=== PATIENT | female | born 1955 | race Caucasian/White ===

== ENCOUNTER 2016-05-22 11:57 | Inpatient (IN) | payer OTHER ==
[~2016-05-22] VITALS: Ht 157.5 cm; Wt 79.8 kg
[~2016-05-22 11:57] MED LIST: ACID REDUCER150 MG PO; ALBUTEROL NEB 0.083%; ATORVASTATIN CA20 MG PO; COREG 6.256.25 MG PO; ESCITALOPRAM5 MG PO; IBUPROFEN800 MG PO; LORAZEPAM; LORAZEPAM0.5 MG PO; METFORMIN HYDR500 MG PO; NORVASC5 M1 PO; PROVENTIL0.09 MG/A1 INH; SPIRIVA 18 MCG18 MCG INH; SYMBICORT 160/41 PUF INH
--- NOTE | 2016-05-22 12:04 | NUR ---
61 FEMALE STATES THAT SHE HAS COPD AND ASTHMA AND THAT YESTERDAY SHE STARTED WITH A COUGH AND INCREASED SOB, USED HER NEBULIZER AT HOME WITH A LITTLE RELIEF. STATES THAT SHE WAS ABLE TO GO WITH OUT O2 AND BREATHING TREATMENTS FOR 2 MONTHS. HAD FEVER AND SHE TOOK MOTRIN. AFEBRILE AT THIS TIME. LEGS FEELS WEAK
--- NOTE | 2016-05-22 13:33 | ED GENERAL ADULT ---
History of Present Illness General Chief Complaint: Dyspnea (COPD, CHF, Other) Stated Complaint: SOB Source: patient Exam Limitations: no limitations Vital Signs & Intake/Output Vital Signs & Intake/Output Vital Signs Date Time Temp Pulse Resp B/P Pulse O2 O2 Flow FiO2 Ox Delivery Rate 05/22 1718 98.6 74 16 120/62 95 Nasal 2.0L Cannula 05/22 1556 95 Nasal 2.0L Cannula 05/22 1530 98.1 78 18 121/66 95 Nasal 2.0L Cannula 05/22 1409 98 Nasal 2.0L Cannula 05/22 1402 93 Nasal 2.0L Cannula 05/22 1202 97.1 84 20 111/70 95 Nasal 2.0L Cannula Allergies Coded Allergies: lisinopril (Mild, COUGH, DIARRHE, DIZZINESS 05/22/16) montelukast (HEART PALPITATIONS 05/22/16) Triage Note: 61 FEMALE STATES THAT SHE HAS COPD AND ASTHMA AND THAT YESTERDAY SHE STARTED WITH A COUGH AND INCREASED SOB, USED HER NEBULIZER AT HOME WITH A LITTLE RELIEF. STATES THAT SHE WAS ABLE TO GO WITH OUT O2 AND BREATHING TREATMENTS FOR 2 MONTHS. HAD FEVER AND SHE TOOK MOTRIN. AFEBRILE AT THIS TIME. LEGS FEELS WEAK Triage Nurses Notes Reviewed? yes HPI: Pt is a 61 yo lady with a PMHx of COPD on 2L home oxygen, Asthma, CHF, presents to [place] ED with complaints of increasing shortness of breath. Pt reposts for the past 2 days, she has noticed worsing dsypnea even with minimal exertion. She also reports increase in productive cough (not able to describe the sputum) and a home oral temp of 101.3. Associated symptoms include chest tightness, but no chest pain or palpation.Pt denies any recent URI infection, worsening LE swelling, unintentional weight gain, increasing orthopnea, or PND, abdominal pain or dysuria/change in urinary frequency. (JAMIE ZIMMERMAN,ESTUARDO) Reconcile Medications Albuterol Sulfate (Proventil Hfa) 90 MCG HFA.AER.AD 2 PUFF INH Q4 PRN RESPIRATORY (Reported) Amlodipine Besylate (Norvasc) 5 MG TABLET 1 TAB PO DAILY HEART (Reported) Atorvastatin Calcium (Lipitor) 20 MG TAB 1 TAB PO DAILY cholesterol Budesonide/Formoterol Fumara (Symbicort 160-4.5 Mcg Inhaler) 160 MCG/4.5 MCG PUF 2 PUF INH BID LUNGS Carvedilol 12.5 MG TABLET 1 TAB PO BID HEART (Reported) Escitalopram Oxalate 5 MG TABLET 1 TAB PO DAILY ANXIETY (Reported) Furosemide 40 MG TABLET 1 TAB PO EOD WATER PILL (Reported) Ibuprofen 800 MG TABLET 1 TAB PO BID PAIN (Reported) Ipratropium/Albuterol Sulfate (Combivent Respimat Inhal [place]) 20 MCG-100 MCG/ ACTUATION MIST.INHAL 1 PO 4 TIMES/DAY BREATHING (Reported) Lorazepam 0.5 MG TABLET 1 TAB PO DAILY ANXIETY (Reported) Ranitidine HCl (Acid Industrial Laborer) 150 MG TABLET 1 TAB PO BID GI (Reported) Tiotropium [place] (Spiriva) 18 MCG CAP.W.DEV 1 CAP INH DAILY COPD (Reported) (TYREL ZIMMERMAN,JUAN M Lugo) Past History Travel History Traveled to [place] past 21 day No Medical History EENT: NONE Cardiovascular: CHF, hypertension, hyperlipidemia Respiratory: asthma, COPD Gastrointestinal: NONE Hepatic: NONE Renal: NONE Musculoskeletal: NONE Psychiatric: NONE Endocrine: NONE Blood Disorders: NONE Cancer(s): NONE ART EDUCATOR/Reproductive: NONE History of MRSA: No History of VRE: No History of CDIFF: No Pneumonia Vaccine: 11/05/13 Psychosocial History Who do you live with Family Services at Home None What is your primary language Jordanian Tobacco Use: Never used ETOH Use: denies use Illicit Drug Use: denies illicit drug use Family History Family History, If Any: MOTHER, . BROTHER grandmother MOTHER DAUGHTER Relation not specified for: FH: diabetes mellitus FHx: asthma FHx: premature coronary heart disease (JAMIE ZIMMERMAN,ESTUARDO) Medical History Any Pertinent Medical History? see below for history Surgical History Surgical History: non-contributory Family History Hx Contributory? No (TYREL ZIMMERMAN,JUAN M Lugo) Review of Systems Review of Systems Constitutional: Reports: fever. Denies: chills. EENTM: Denies: blurred vision, double vision, visual changes. Respiratory: Reports: cough, orthopnea. Denies: hemoptysis, short of breath. Cardiovascular: Denies: chest pain, edema, orthopena, palpitations. GI: Denies: abdominal pain, bloating, constipation. Genitourinary: Denies: dysuria, frequency, hematuria. Musculoskeletal: Denies: joint pain, muscle pain. Skin: Denies: erythema. Neurological/Psychological: Denies: confusion, dementia. Hematologic/Endocrine: Denies: bruising, bleeding, polyuria. (JAMIE ZIMMERMAN,ESTUARDO) Review of Systems Immunologic/Allergic: Reports: no symptoms. All Other Systems: Reviewed and Negative (TYREL ZIMMERMAN,JUAN M Lugo) Physical Exam Physical Exam General Appearance: well developed/nourished, alert, awake Head: atraumatic, normal appearance Eyes: Bilateral: PERRL. Ears, Nose, Throat: normal pharynx, normal ENT inspection, hearing grossly normal Neck: normal inspection, supple, full range of motion Respiratory: chest non-tender, wheezing (diffuse expiratory wheezes) Cardiovascular: regular rate/rhythm Peripheral Pulses: 2+ dorsalis pedis (R), 2+ dorsalis pedis (L) Gastrointestinal: normal bowel sounds, soft, non-tender Extremities: mild edema b/l on LE Neurologic/Psych: awake, alert, oriented x 3, normal mood/affect Skin: intact, normal color (JAMIE ZIMMERMAN,ESTUARDO) Physical Exam Back: normal range of motion Core Measures ACS in differential dx? No CVA/TIA Diagnosis: No Severe Sepsis Present: No Septic Shock Present: No (TYREL ZIMMERMAN,JUAN M Lugo) Progress Differential Diagnoses I considered the following diagnoses in my evaluation of the patient: COPD exercarbation,PNA,CHF exercabation, PE, ACS, Pneumothorax, Acute Bronchitis. Plan of Care: Orders Procedure Date/time Status Heart Healthy Diet 05/23 B Active Misc Message 05/22 1848 Active ED Holding Orders 05/22 184 Active Vital Signs 05/22 184 Active Code Status 05/22 184 Active Patient Data 05/22 184 Active Add-on Test (ER Only) 05/22 1821 Active B-TYPE NATRIURETIC PEP (BNP) 05/22 1445 Active TROPONIN LEVEL 05/22 1336 Active COMPREHENSIVE METABOLIC PANEL 05/22 1336 Active CBC WITHOUT DIFFERENTIAL 05/22 1336 Complete EKG 05/22 1336 Active Current Medications Sig/Sharyn Start time Last Medication Dose Stop Time Status Admin Methylprednisolone 120 MG ONCE ONE 05/22 1345 CAN (Solu Medrol) 05/22 1346 Laboratory Tests 05/22/16 1445: Anion Gap 10, Estimated GFR > 60, BUN/Creatinine Ratio 16.7, Glucose 110 H, Calcium 8.9, Total Bilirubin 0.8, AST 25, ALT 36, Alkaline Phosphatase 92, Troponin I < 0.01, Asf-Y-Bnufnsujgoo Pept Pending, Total Protein 6.8, Albumin 3.7, Globulin 3.1, Albumin/Globulin Ratio 1.2 05/22/16 1350: CBC w Diff NO MAN DIFF REQ, RBC 4.62, MCV 86.6, MCH 28.9, RDW 14.9 H, MPV 8.5, Gran % 80.1 H, Lymphocytes % 11.4 L, Monocytes % 7.6, Eosinophils % 0.4, Basophils % 0.5, Absolute Granulocytes 10.5 H, Absolute Lymphocytes 1.5, Absolute Monocytes 1.0 H, Absolute Eosinophils 0, Absolute Basophils 0.1, PUBS MCHC 33.3 Initial ED EKG: no ST T wave changes (JAMIE ZIMMERMAN,ESTUARDO) Differential Diagnoses I considered the following diagnoses in my evaluation of the patient: Comments: 05/22/2016 4:33:59 PM although patient has improved with treatment here in the emergency department. She became tachypneic short of breath and hypoxic with ambulation. We will seek to admit this patient for continued treatment. (TYREL ZIMMERMAN,JUAN M Lugo) Departure Departure Disposition: STILL A PATIENT Clinical Impression Primary Impression: COPD exacerbation Ruled Out Impressions: PNA (pneumonia) Departure Forms: Customer Survey General Discharge Information (ESTUARDO AYALA MD) Departure Condition: Stable Referrals: CASE CHANG MD (PCP/Family) Admission Note Spoke With: TAL THORPE MD Documentation of Exam: Documentation of any treatments & extenuating circumstances including Concerns Regarding Discharge (functional status, medication knowledge or non-compliance, living conditions, etc.) that warrant an admission rather than observation: Patient is experiencing a severe COPD exacerbation that is unresponsive to 2 nebulizer treatments and IV Decadron. With ambulation the patient became visibly dyspneic, tachypneic and dropped her oxygen saturations below 90%. I do not feel she can be safely treated as an outpatient at this point. I feel that the patient would come more symptomatic and more hypoxic with attempts at outpatient treatment. She would be at high risk of respiratory failure and . I feel she now requires hospitalization for nebulized bronchodilators and IV steroids. She will require repeated clinical evaluations to assess for improvement in air entry and oxygen saturations. O2 should be supplemented as needed. Pulmonary consultation should be considered. Given the patient's medical comorbidities I feel she will require a multiple day hospitalization. Resident Co-Sign Statement Statement: ED Attending supervision documentation- [X] I saw and evaluated the patient. I have also reviewed all the pertinent lab results and diagnostic results. I agree with the findings and the plan of care as documented in the Resident's documentation. [] I have reviewed the ED Record and agree with the Resident's documentation. [] Additions or exceptions (if any) to the Resident's note and plan are summarized below: [] (TYREL ZIMMERMAN,JUAN M Lugo) Critical Care Note Critical Care Note Critical Care Time: 30-74 min (JUAN M SARAH MD)
--- NOTE | 2016-05-22 14:00 | NUR ---
PT EVALUATED BY MD ESTUARDO. BLOOD DRAWN AND SENT TO LAB-[facility]. IV EST, PT MEDICATED WITH SOLUMEDROL PER EMAR. RAD AT BEDSIDE FOR CHEST XRAY.
--- NOTE | 2016-05-22 14:06 | NUR ---
RESP AT BEDSIDE FOR DUONEB.
[2016-05-22 14:10] LABS: ABSOLUTE BASOPHIL COUNT 0.1 /CUMM (0.0-0.2); ABSOLUTE EOSINOPHIL COUNT 0 /CUMM (0.0-0.7); ABSOLUTE GRANULOCYTE CT 10.5 /CUMM (1.4-6.5); ABSOLUTE LYMPH COUNT 1.5 /CUMM (1.2-3.4); BASOPHIL % 0.5 % (0.0-2.0); EOSINOPHIL % 0.4 % (0-5); GRANULOCYTE % 80.1 % (42.2-75.2); MEAN CORPUSCULAR HGB 28.9 PG (27.0-31.0); MEAN CORPUSCULAR HGB CONC 33.3 G/DL (33.0-37.0); MEAN CORPUSCULAR VOLUME 86.6 FL (81.0-99.0); MEAN PLATELET VOLUME 8.5 FL (7.4-10.4); PLATELET COUNT 258 /CUMM (130-400); RBC DISTRIBUTION WIDTH 14.9 % (11.5-14.5); RED BLOOD CELL CT 4.62 /CUMM (4.20-5.40); WHITE BLOOD CELL COUNT 13.1 /CUMM (4.8-10.8)
--- NOTE | 2016-05-22 14:13 | NUR ---
SST NEEDS TO BE REDRAWN PER LAB
--- NOTE | 2016-05-22 14:24 | RADIOLOGY REPORT ---
EXAMINATION: XR PORTABLE CHEST CLINICAL INFORMATION: Dyspnea. Increasing cough. Wheezing. COPD exacerbation vs. pneumonia vs. CHF exacerbation. COMPARISON: 11/09/[address] dated 02/03/2016 TECHNIQUE: Portable view of the chest was obtained. FINDINGS: Single lead ICD is present with the lead terminating in the right ventricle. Cardiac and mediastinal contours are normal. Subtle nodular opacities in the right upper lobe were present on the prior radiograph from 2013, though not evident on the recent CT from 02/03/2016, likely overlying calcifications or other overlying soft tissues. No consolidation, pneumothorax, or pleural effusion. Pulmonary vasculature is normal. Lungs are hyperexpanded. Hemidiaphragms are flattened. No pneumothorax or pleural effusion. Bones are unremarkable. IMPRESSION: Hyperexpanded lungs. Otherwise, no acute cardiopulmonary findings.
[2016-05-22] MEDS ORDERED: COMBIVENT RESPIM4 GM PO (14:40)
[2016-05-22] MEDS ORDERED: CARVEDILOL12.5 M1 PO (14:41)
[2016-05-22] MEDS ORDERED: FUROSEMIDE40 M1 PO (14:42)
[2016-05-22] MEDS ORDERED: IBUPROFEN800 M1 PO (14:42)
[2016-05-22] MEDS ORDERED: LORAZEPAM0.5 M1 PO (14:43)
--- NOTE | 2016-05-22 15:15 | NUR ---
REPORT RECIVED AND CARE ASSUMED.
--- NOTE | 2016-05-22 15:27 | NUR ---
ABX NOW INFUSING.
--- NOTE | 2016-05-22 15:43 | NUR ---
IV ANTIBIOTIC WAS DISCONTINUED SHE BEGAN COMPLAINING OF BURNING AND ITCHING AT THE IV SITE. MADE AWARE.
--- NOTE | 2016-05-22 16:03 | NUR ---
NEB TX IN PROGRESS ORDERED.
--- NOTE | 2016-05-22 16:26 | NUR ---
PT WAS AMBULATED APPROXIMATELY 50 FEET WITH O2 VIA NC AT 2 L, SHE EXPERIENCED SIGNIFICANT SOB UPON AMBULATING WITH O2 SAT DECREASE TO 89%. MADE AWARE.
--- NOTE | 2016-05-22 17:01 | NUR ---
PT TO BE ADMITTED PER ATTENDING.
--- NOTE | 2016-05-22 18:14 | NUR ---
PT RESTING COMFORTABLY, NO RESP DISTRESS. REMAINS ON O2 VIA 2 LITERS NC.
--- NOTE | 2016-05-22 19:33 | NUR ---
RT CALLED, SHE IS COMPLAINING OF DIFF BREATHING. O2 SAT 95% WITH 2 LITER NC. NO WHEEZING NOTED.
--- NOTE | 2016-05-22 19:45 | NUR ---
RT AT THE BEDSIDE.
--- NOTE | 2016-05-22 20:03 | NUR ---
MARIAM CALLED FOR REPORT, SYLVESTER WILL CALL BACK
--- NOTE | 2016-05-22 20:03 | NUR ---
BED ASSIGNMENT [phone]
--- NOTE | 2016-05-22 20:28 | NUR ---
REPORT GIVEN TO FLOOR RN. PENDING DISTRIBUTION
[2016-05-22] MEDS ORDERED: NASONEX17 GM NASB (21:25)
--- NOTE | 2016-05-22 21:32 | History & Physical ---
TYLER ALTAMIRANO MD 05/22/16 2132: General Information and HPI MD Statement: I have seen and personally examined WILLY DAMON and documented this H&P. The patient is a 61 year old F who presented with a patient stated chief complaint of [Progressively worsening of shortness of breath]. Source of Information: patient, old records, EMS Exam Limitations: no limitations History of Present Illness: Patient is a 61 YO F with PMH significant for CHF (systolic s/p ICD), COPD/ asthma (on home oxygen 2L), HTN, depression came to [facility] with progressively worsening shortness of breath, fever (Tmax 101.3), cough for the past 2 days. she was well before sunday evening where she acutely developed shortness of breath, cough. Next day she was on bed through out the day with a fever of 101.3 Tmax, with wet cough, wheezing, runny nose (clear discharge). Her grandson, are sick at home. She also significant headache with right sided back pain. She was on home oxygen but for the past 2 mon she was off oxygen after she started using both albuterol and ipratropium. For the past 2 days she started using oxygen again. She denies any productive cough, sorethroat, chest pain, increased lower extremity swelling, PND, othropnea, ambulate ambulate well. Allergies/Medications Allergies: Coded Allergies: lisinopril (Mild, COUGH, DIARRHE, DIZZINESS 05/22/16) montelukast (HEART PALPITATIONS 05/22/16) Home Med list Albuterol Sulfate (Proventil Hfa) 90 MCG HFA.AER.AD 2 PUFF INH Q4 PRN RESPIRATORY (Reported) Amlodipine Besylate (Norvasc) 5 MG TABLET 1 TAB PO DAILY HEART (Reported) Budesonide/Formoterol Fumara (Symbicort 160-4.5 Mcg Inhaler) 160 MCG/4.5 MCG PUF 2 PUF INH BID LUNGS Carvedilol 12.5 MG TABLET 1 TAB PO BID HEART (Reported) Escitalopram Oxalate 5 MG TABLET 1 TAB PO DAILY ANXIETY (Reported) Furosemide 40 MG TABLET 1 TAB PO EOD WATER PILL (Reported) Ibuprofen 800 MG TABLET 1 TAB PO BID PRN PAIN (Reported) Ipratropium/Albuterol Sulfate (Combivent Respimat Inhal [place]) 20 MCG-100 MCG/ ACTUATION MIST.INHAL 1 PO 4 TIMES/DAY BREATHING (Reported) Lorazepam 0.5 MG TABLET 1 TAB PO DAILY ANXIETY (Reported) Mometasone Furoate (Nasonex) 50 MCG SPRAY.PUMP 2 SPRAY NASB DAILY ASTHMA ( Reported) Ranitidine HCl (Acid Manager Cancer) 150 MG TABLET 1 TAB PO BID GI (Reported) Compliance With Home Meds: FAIR Past History Travel History Traveled to [place] past 21 day No Medical History EENT: NONE Cardiovascular: CHF, hypertension, hyperlipidemia Respiratory: asthma, COPD Gastrointestinal: NONE Hepatic: NONE Renal: NONE Musculoskeletal: NONE Psychiatric: NONE Endocrine: NONE Blood Disorders: NONE Cancer(s): NONE BASIN FINISH OPERATOR TIG WELDER/Reproductive: NONE History of MRSA: No History of VRE: No History of CDIFF: No Pneumonia Vaccine: 11/05/13 Surgical History Surgical History: appendectomy, cholecystectomy ECHO Results (as available) Date of last Echo 11/12/13 EF% 20 Past Family/Social History Family History Relations & Conditions if any MOTHER, . BROTHER grandmother MOTHER DAUGHTER Relation not specified for: FH: diabetes mellitus FHx: asthma FHx: premature coronary heart disease Psychosocial History Where do you live? Home Who Do You Live With? spouse, child Services at Home: None Smoking Status: Former Smoker ETOH Use: denies use Illicit Drug Use: denies illicit drug use Living Will? yes Functional Ability ADLs Independent: dressing, eating, toileting, bathing. Ambulation: independent IADLs Independent: shopping, housework, finances, food prep, telephone, transportation , medication admin. Review of Systems Review of Systems Constitutional: Reports: see HPI, fever, malaise, weakness. EENTM: Reports: no symptoms, see HPI. Cardiovascular: Reports: no symptoms, see HPI. Respiratory: Reports: cough, short of breath, wheezing. GI: Reports: see HPI. Genitourinary: Reports: see HPI. Musculoskeletal: Reports: see HPI. Skin: Reports: see HPI. Neurological/Psychological: Reports: see HPI. Hematologic/Endocrine: Reports: see HPI. Immunologic/Allergic: Reports: see HPI. All Other Systems: Reviewed and Negative Comments ROS negative except the above. Exam & Diagnostic Data Last 24 Hrs of Vital Signs/I&O Vital Signs Date Time Temp Pulse Resp B/P Pulse O2 O2 Flow FiO2 Ox Delivery Rate 05/23 0636 97.7 71 20 122/68 95 Nasal Cannula 05/22 2300 94 Nasal 3.0L Cannula 05/22 2220 97.4 82 20 134/76 94 Nasal 2.0L Cannula 05/22 2200 94 Nasal 2.0L Cannula 05/22 2030 98.1 82 18 116/66 97 Room Air 05/22 1945 94 Nasal 2.0L Cannula 05/22 1718 98.6 74 16 120/62 95 Nasal 2.0L Cannula 05/22 1556 95 Nasal 2.0L Cannula 05/22 1530 98.1 78 18 121/66 95 Nasal 2.0L Cannula 05/22 1409 98 Nasal 2.0L Cannula 05/22 1402 93 Nasal 2.0L Cannula 05/22 1202 97.1 84 20 111/70 95 Nasal 2.0L Cannula Intake & Output 05/23 0800 05/23 0000 05/22 1600 Intake Total 250 260 240 Output Total Balance 250 260 240 Intake, IV 10 20 Intake, Oral 240 240 240 Patient 79.832 kg 79.832 kg Weight Physical Exam General Appearance Alert, Oriented X3, Cooperative, Mild Distress Skin No Rashes, No Breakdown HEENT Atraumatic, PERRLA, EOMI Neck Supple, No JVD Cardiovascular Regular Rate, Normal S1, Normal S2, No Murmurs Lungs Clear to Auscultation, diffuse wheezing from the upper lobes, lower lobes are clear for auscultation Abdomen Normal Bowel Sounds, Soft, No Tenderness Neurological Normal Gait, Normal Speech, Strength at 5/5 X4 Ext, Normal Tone, Sensation Intact Extremities No Clubbing, No Cyanosis Vascular Normal Pulses, Pulses Symmetrical Last 24 Hrs of Labs/Lorenzo: Laboratory Tests 05/22/16 1445: Anion Gap 10, Estimated GFR > 60, BUN/Creatinine Ratio 16.7, Glucose 110 H, Calcium 8.9, Total Bilirubin 0.8, AST 25, ALT 36, Alkaline Phosphatase 92, Troponin I < 0.01, Iun-F-Kwlwedtyfbk Pept 201 H, Total Protein 6.8, Albumin 3.7 , Globulin 3.1, Albumin/Globulin Ratio 1.2 05/22/16 1350: CBC w Diff NO MAN DIFF REQ, RBC 4.62, MCV 86.6, MCH 28.9, RDW 14.9 H, MPV 8.5, Gran % 80.1 H, Lymphocytes % 11.4 L, Monocytes % 7.6, Eosinophils % 0.4, Basophils % 0.5, Absolute Granulocytes 10.5 H, Absolute Lymphocytes 1.5, Absolute Monocytes 1.0 H, Absolute Eosinophils 0, Absolute Basophils 0.1, PUBS MCHC 33.3 Diagnostic Data CXR Results IMPRESSION: Hyperexpanded lungs. Otherwise, no acute cardiopulmonary findings Assessment/Plan Assessment: Patient is a 61 YO F with PMH significant for CHF (systolic s/p ICD), COPD/ asthma (on home oxygen 2L), HTN, depression came to [facility] with progressively worsening shortness of breath, fever (Tmax 101.3), cough for the past 2 days. ER VS Tmax of 98.6, HR 74, BP 120/62mmHg, saturating well on 2L Labs unremarkable except for a white count of 13.1 Imaging Chest x-ray Hyperexpanded lungs with nodular opacities in the right lower lobe Patient received a single dose of IV Solu-Medrol 125 mg along with IV Zithromax and nebulization therapy in the ER Plan Admit to [facility] floor COPD exacerbation with suspected pneumonia * History of sick contacts with shortness of breath, fevers, wheezing. * Started on IV steroids Solu-Medrol 40 mg every 8 hours * IV azithromycin * Repeat chest x-ray in a.m. also start IV ceftriaxone if signs of pneumonia present * Follow-up cultures * TRC/nebs * Pulmonary consult in AM History of systolic heart failure with ICD in place * No signs of exacerbation currently * Continue her home medications including furosemide 40 mg Q48 hours, Coreg 12.5 BID * Patient follows Dr. Coronel and Dr. Stoll, informe them History of hypertension * Continue home medications including carvedilol 12.5 twice a day and amlodipine 2.5 History of depression * Continue home dose of Lexapro 5 mg daily DVT prophylaxis * Subcutaneous Lovenox CODE STATUS * Full code As Ranked By This Provider Problem List: 1. Bronchitis 2. COPD with exacerbation 3. Hypertension 4. DVT prophylaxis 5. Full code status Core Measures/Miscellaneous Acute Coronary Syndrome ACS Diagnosis: No Cerebrovascular Accident CVA/TIA Diagnosis: No Congestive Heart Failure CHF Diagnosis: No Venous Thromboembolism VTE Risk Factors: Immobility, paresis VTE Prophylaxis Ordered Inpt: Pharm- Lovenox No Mech VTE prophylaxis d/t: No contraindications No VTE Pharm Prophylaxis d/t: No contraindications VTE Diagnosis: No VTE Type: NONE VTE Confirmed by (Test): NONE Severe Sepsis Severe Sepsis Present: No Septic Shock Septic Shock Present: No Miscellaneous Documentation Attending Case Discussed With: TAL THORPE MD Primary Care Physician: CASE CHANG MD Patient sees these Specialists and Level of Patient Care: General Medicine BRAULIO URBAN MD 05/23/16 0323: Resident Review Statement Resident Statement: examined this patient, discussed with [employer] compliance internship, agreed with [employer] compliance internship, reviewed EMR data (avail), reviewed images, amended to note Other Findings: This is 61-year-old female with past medical history of COPD on 2 L home O2 but remain of O2 for past 2 months since using Combivent nebulizer, asthma, systolic CHF with EF of 30-35% status post defibrillator placement, hypertension, pulmonary nodule presented from home with chief complaint of worsening shortness of breath associated with dry cough, chest tightness and fever for 2 days. 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 Sunday evening she started feeling more short of breath with episode of dry cough with associated wheezing and chest tightness. She started using supplemental O2 and use Combivent nebulizer every 4 hours for past 2 days with minimal symptom relief. Yesterday she spiked fever of 101.3, took Motrin and fever subsided to 100.7. Today again she had fewer of 100.3 with associated chills and remain short of breath when she decided to come to ER for further evaluation. She denies any orthopnea, leg swelling, recent weight gain, chest pain, diaphoresis, recent travel, nausea, vomiting, abdominal pain or urinary symptoms. She does report waking up in middle of night with chest tightness and shortness of breath which she attributes to her COPD symptoms. Her vitals on admission were T 98.6, HR 74, RR 16, BP 120/62, O2 sat 94% on 2 L On physical exam patient is alert oriented 3 in mild respiratory distress, HEENT PERRLA EOMI, neck supple without elevated JVD, heart S1-S2 normal without murmur, lungs noted anterior upper lobes wheezing with poor air entry, abdomen soft nontender nondistended with preserved fall sounds, no peripheral edema, no focal gross neuro deficit. Labs revealed leukocytosis of 13.1 with granulocytes of 80%, H&H 13.4/40, normal electrolytes, BUN 15, creatinine 0.9, negative troponin, proBNP 200, normal LFT Chest x-ray did not reveal any evidence of pneumonia Echo 10/2013: EF was 15-20% but as per the patient had recent echo probably 6-9 months back which showed EF of 30-35% EKG revealed normal sinus rhythm at rate of 79, ST depression in lateral leads. For to V6 unchanged from previous EKG, QTC 07/31/1994 Assessment: This is 61 year female with past medical history of COPD the on 2 L home O2 at 1. but was off oxygen for past 2 months, systolic heart failure, hypertension presented to ER with chief complaint of 2 days history of worsening shortness of breath associated with wheezing and dry cough and a fever of 101.3 likely secondary to COPD exacerbation due to acute bronchitis. 1. Acute COPD exacerbation in setting of acute bronchitis - Admit to general medicine floor - Start Solu-Medrol 40 mg every 8 hourly - Continue azithromycin 500 mg daily - If patient spikes fever to blood culture, and brings up sputum sent it for sputum culture - Check rapid flu - TRC nebulization - Continue Symbicort - Consider pulmonary consult with Dr. Giraldo 2. History of systolic heart failure status post defibrillator placement - No evidence of decompensated heart failure - Continue home dose Lasix 40 mg every other day - Continue carvedilol 12.5 mg twice a day - Patient sees proof carrier Dr. Bello and Dr. Stoll 3. Hypertension Continue home dose carvedilol and amlodipine 4. Depression Continue home dose Lexapro 5 mg daily 5. DVT prophylaxis Subcutaneous Lovenox 6. Full code TAL THORPE 05/23/16 0604: Attending MD Review Statement Attending Statement Attending MD Statement: examined this patient, discuss w/resident/PA/CASINO FLOOR SUPERVISOR, agreed w/resident/PA/CASINO FLOOR SUPERVISOR, discussed with family, reviewed EMR data (avail), reviewed images, amended to note Attending Assessment/Plan: CC: Progressive worsening of shortness of breath with cough PMH: COPD/asthma, prediabetes, HFrEF, ICD, HTN, HLD, depression She started to feel short of breath since last 3-4 days with dry cough and chest tightness. She also complains of right-sided back pain, nonpleuritic. She had fever at home at 101.3 improved with Motrin, and patient was not using O2 by NC at home since last 2 months, in last few days she had to start using it again. Patient's is admitted in ICU for pneumonia and COPD exacerbation, her grandchildren are also sick with upper respiratory symptoms. No increased leg swellings or increased body weight. Vitals: Afebrile, HR, RR, BP, unremarkable, saturating 94% on 2 L. On exam: A O , no JVD RS: Diffuse wheezing bilaterally, no crackles. CVS: S1-S2, RRR. Abdomen : Soft, NT, ND, bowel sounds present. No focal neurological deficit. No dependent edema. Labs: WBC 13.1, otherwise unremarkable. CXR: Hyperexpanded lungs otherwise normal, ?subtle nodular opacities and right upper lobe. A and P #1 acute hypoxic respiratory failure: Secondary to COPD exacerbation, diffuse wheezing throughout lung elaine, saturating well on 2 L by nasal cannula. Continue IV methylprednisolone 40 mg every 8 hours, IV azithromycin, when necessary and scheduled nebulization with ipratropium and albuterol, taper oxygen down, saline nasal spray, Mucinex. Patient has Leukocytosis, but chest x-ray shows no evidence of pneumonia, patient has been afebrile. Repeat chest x-ray PA lateral in a.m. to rule out any developing pneumonia. #2 chronic stable conditions continue rest of her home medications for heart failure, hypertension, HLD with amlodipine, statin, Coreg, Lasix by mouth. #3 DVT prophylaxis with Lovenox, adequate pain control.
[2016-05-22 22:20] VITALS: BP 134/76
--- NOTE | 2016-05-23 06:05 | Admission Certification ---
Admission Certification Certification Statement - As attending physician, I certify that at the time of - admission, based on clinical presentation, severity of - symptoms, need for further diagnostic testing and - therapeutic interventions, and risk of adverse outcomes - without in-hospital treatment, in my clinical assessment, - this patient requires an acute hospital stay for a minimum - of two nights or longer. I have also considered psychsocial - factors such as support system, advanced age, financial - issues, cognitive issues, and failed out-patient treatments, - past re-admission history, safety of patient, and lack of - compliance as applicable. Specific rationale supporting this admission is: COPD exacerbation
[2016-05-23 06:36] VITALS: BP 122/68
--- NOTE | 2016-05-23 08:25 | Cons- Pulmonary ---
CHANELLE BONNER 05/23/16 0825: General Information and HPI Consulting Request Date of Consult: 05/23/16 Requested By: Willy Reason for Consult: COPD exacerbation Source of Information: patient, old records Exam Limitations: no limitations History of Present Illness: Patient is a 61 yo F with Hx of Asthma and COPD was admitted for worsening dyspnea. Her last admission was in 06/01/ asthma exacerbation. Used to be on home O2 that she stopped using for the past two month, She is retired, leaves with her , independent in taking care of herself and for the past two month ambulatory independent of O2. Former smoker, quit Apr 2013. Vacc no Travel. Her and grand son were sick and her was admitted to ICU for repiratory failure 06/01 to COPD exacerbation. She was at normal state of health until Sat. when she came down with sudden abrupt fever of 101.7F and severe congestion, facial fullness and tenderness on her sinuses and PND and severe throbbing headache and toothache. Her shortness of breath worsened overtime and she became wheezy. For the duration of her symptoms she started using her O2 and also used more inhaler with mimal improvement of her symptoms. She also has a Hx of HFrEF with EF of 35% s/p ICD, HTN, and depression. Allergies/Medications Allergies: Coded Allergies: lisinopril (Mild, COUGH, DIARRHE, DIZZINESS 05/22/16) montelukast (HEART PALPITATIONS 05/22/16) Home Med List: Albuterol Sulfate (Proventil Hfa) 90 MCG HFA.AER.AD 2 PUFF INH Q4 PRN RESPIRATORY (Reported) Amlodipine Besylate (Norvasc) 5 MG TABLET 1 TAB PO DAILY HEART (Reported) Budesonide/Formoterol Fumara (Symbicort 160-4.5 Mcg Inhaler) 160 MCG/4.5 MCG PUF 2 PUF INH BID LUNGS Carvedilol 12.5 MG TABLET 1 TAB PO BID HEART (Reported) Escitalopram Oxalate 5 MG TABLET 1 TAB PO DAILY ANXIETY (Reported) Furosemide 40 MG TABLET 1 TAB PO EOD WATER PILL (Reported) Ibuprofen 800 MG TABLET 1 TAB PO BID PRN PAIN (Reported) Ipratropium/Albuterol Sulfate (Combivent Respimat Inhal [place]) 20 MCG-100 MCG/ ACTUATION MIST.INHAL 1 PO 4 TIMES/DAY BREATHING (Reported) Lorazepam 0.5 MG TABLET 1 TAB PO DAILY ANXIETY (Reported) Mometasone Furoate (Nasonex) 50 MCG SPRAY.PUMP 2 SPRAY NASB DAILY ASTHMA ( Reported) Ranitidine HCl (Acid Support Staff) 150 MG TABLET 1 TAB PO BID GI (Reported) Current Medications: Current Medications Sig/Sharyn Start time Last Medication Dose Route Stop Time Status Admin Acetaminophen 650 MG Q6P PRN 05/22 2115 AC 05/23 PO 0544 Albuterol Sulfate 3 ML TID 05/23 1000 AC 05/23 INH 0820 Albuterol Sulfate 3 ML Q4P PRN 05/22 2230 DC 05/23 INH 0153 Albuterol Sulfate 3 ML ONCE ONE 05/22 1945 DC 05/22 INH 05/22 194 1945 Albuterol Sulfate 3 ML ONCE ONE 05/22 1600 DC 05/22 INH 05/22 1601 1556 Albuterol Sulfate 3 ML ONCE ONE 05/22 1345 DC 05/22 INH 05/22 1346 1409 Amlodipine Besylate 5 MG DAILY 05/23 1000 AC PO Azithromycin 500 MG DAILY 05/23 1000 AC Dextrose/Water 250 ML IV Azithromycin 500 MG ONCE ONE 05/22 1445 DC 05/22 Dextrose/Water 250 ML IV 05/22 1544 1526 Budesonide/ 2 PUF BID 05/22 2199 AC 05/22 Formoterol Fumarate INH 2331 Carvedilol 12.5 MG BID 05/22 2200 AC 05/22 PO 2331 Enoxaparin Sodium 40 MG DAILY 05/23 1000 AC SC Escitalopram Oxalate 5 MG DAILY 05/23 1000 AC PO Furosemide 40 MG Q48 05/24 1000 AC PO Ipratropium [place] 2.5 ML ONCE ONE 05/22 1345 DC 05/22 INH 05/22 1346 1409 Lorazepam 0.5 MG DAILY 05/22 2136 AC 05/22 PO 05/29 2135 2239 Methylprednisolone 40 MG Q8 05/22 2200 AC 05/23 IV 0543 Methylprednisolone 125 MG ONCE ONE 05/22 1400 DC 05/22 IV 05/22 1401 1400 Methylprednisolone 0 .STK-MED ONE 05/22 1353 DC .ROUTE Methylprednisolone 120 MG ONCE ONE 05/22 1345 CAN IV 05/22 1346 Omeprazole 40 MG DAILY AC 05/23 0700 AC 05/23 PO 0544 Sodium Chloride 2 SPRAY Q4P PRN 05/23 0030 [facility] Review of Systems Review of Systems Constitutional: Reports: see HPI. Denies: chills, diaphoresis, fever, malaise, weakness, unexplained weight loss. EENTM: Denies: blurred vision, double vision, visual changes, eye pain, eye drainage, eye tearing, icterus, ear discharge, ear pain, ear redness, hearing changes, nasal congestion, epistaxis, nasal pain, throat pain, throat swelling, mouth pain, tooth pain. Cardiovascular: Denies: chest pain, edema, orthopena, palpitations, peripheral edema, syncope. Respiratory: Reports: see HPI, cough, wheezing. Denies: hemoptysis, orthopnea, short of breath, sputum production, stridor. GI: Denies: abdominal pain, bloating, constipation, diarrhea, distention, bowel incontinence, melena, nausea, bloody stool, changes in stool, vomiting, steatorrhea. Genitourinary: Denies: discharge, dysuria, frequency, hematuria, hesitation, nocturia, pain, urgency. Musculoskeletal: Reports: see HPI. Skin: Reports: no symptoms. All Other Systems: Reviewed and Negative Past History Travel History Traveled to [place] past 21 day No Medical History Blood Transfusion Hx: Yes EENT: NONE Cardiovascular: CHF, hypertension, hyperlipidemia, DEFIBULATOR LCW Respiratory: asthma, COPD Gastrointestinal: NONE Hepatic: NONE Renal: NONE Musculoskeletal: NONE Psychiatric: NONE Endocrine: NONE Blood Disorders: NONE Cancer(s): NONE HOGSHEAD STRIPPER/Reproductive: NONE Surgical History Surgical History: appendectomy, cholecystectomy Family History Relations & Conditions If Any: MOTHER, . BROTHER grandmother MOTHER DAUGHTER Relation not specified for: FH: diabetes mellitus FHx: asthma FHx: premature coronary heart disease Psychosocial History Where Do You Live? Home Who Do You Live With? spouse, child Services at Home: None Smoking Status: Former Smoker ETOH Use: denies use Illicit Drug Use: denies illicit drug use Living Will? yes Functional Ability ADLs Independent: dressing, eating, toileting, bathing. Ambulation: independent IADLs Independent: shopping, housework, finances, food prep, telephone, transportation , medication admin. Employment History Employment: Retired ECHO Results (as available) Date of last Echo 11/12/13 EF% 20 Exam & Diagnostic Data Last 24 Hrs of Vital Signs/I&O Vital Signs Date Time Temp Pulse Resp B/P Pulse O2 O2 Flow FiO2 Ox Delivery Rate 05/23 0822 Nasal 3.0L Cannula 05/23 0636 97.7 71 20 122/68 95 Nasal Cannula 05/22 2300 94 Nasal 3.0L Cannula 05/22 2220 97.4 82 20 134/76 94 Nasal 2.0L Cannula 05/22 2200 94 Nasal 2.0L Cannula 05/22 2030 98.1 82 18 116/66 97 Room Air 05/22 1945 94 Nasal 2.0L Cannula 05/22 1718 98.6 74 16 120/62 95 Nasal 2.0L Cannula 05/22 1556 95 Nasal 2.0L Cannula 05/22 1530 98.1 78 18 121/66 95 Nasal 2.0L Cannula 05/22 1409 98 Nasal 2.0L Cannula 05/22 1402 93 Nasal 2.0L Cannula 05/22 1202 97.1 84 20 111/70 95 Nasal 2.0L Cannula Intake & Output 05/23 1600 05/23 0800 05/23 0000 Intake Total 250 260 Output Total Balance 250 260 Intake, IV 10 20 Intake, Oral 240 240 Patient 176 lb Weight Physical Exam General Appearance: no apparent distress, alert, awake, comfortable, obese Head: atraumatic, normal appearance Eyes: Bilateral: normal appearance, PERRL, EOMI. Ears, Nose, Throat: normal pharynx Neck: normal inspection, supple, JVD Respiratory: chest non-tender, rhonchi, wheezing Cardiovascular: regular rate/rhythm, normal peripheral pulses Peripheral Pulses: 2+ brachial (R), 2+ brachial (L) Gastrointestinal: normal bowel sounds, soft, non-tender Back: normal inspection Extremities: normal inspection, no edema Neurologic/Psych: no motor/sensory deficits Cranial Nerves: normal hearing, normal speech, PERRL Last 48 Hrs of Labs/Lorenzo: Laboratory Tests 05/23/16 0710: Sodium Pending, Potassium Pending, Chloride Pending, Carbon Dioxide Pending, Anion Gap Pending, BUN Pending, Creatinine Pending, BUN/Creatinine Ratio Pending , CBC w Diff Pending, WBC Pending, RBC Pending, Hgb Pending, Hct Pending, MCV Pending, MCH Pending, RDW Pending, Plt Count Pending, MPV Pending, PUBS MCHC Pending 05/22/16 1445: Anion Gap 10, Estimated GFR > 60, BUN/Creatinine Ratio 16.7, Glucose 110 H, Calcium 8.9, Total Bilirubin 0.8, AST 25, ALT 36, Alkaline Phosphatase 92, Troponin I < 0.01, Sep-F-Qyfdsqjjccx Pept 201 H, Total Protein 6.8, Albumin 3.7 , Globulin 3.1, Albumin/Globulin Ratio 1.2 05/22/16 1350: CBC w Diff NO MAN DIFF REQ, RBC 4.62, MCV 86.6, MCH 28.9, RDW 14.9 H, MPV 8.5, Gran % 80.1 H, Lymphocytes % 11.4 L, Monocytes % 7.6, Eosinophils % 0.4, Basophils % 0.5, Absolute Granulocytes 10.5 H, Absolute Lymphocytes 1.5, Absolute Monocytes 1.0 H, Absolute Eosinophils 0, Absolute Basophils 0.1, PUBS MCHC 33.3 Assessment/Plan Impression/Plan: Consult for 61-year-old woman with past medical history of COPD and asthma on home O2 and Symbicort and Spiriva and albuterol inhaler was admitted for COPD/ asthma exacerbation. Pertinent data Patient on 3 L of oxygen saturation 94% WBC 13.1 with left shift but no bandemia ProBNP 201 BEP: Within normal limits List of active problems #1 COPD exacerbation #2 history of HFrEF #3 hypertension #4 depression Assessment and plan #1 COPD exacerbation most possibly secondary to upper respiratory tract infection (acute sinusitis). Based on presentation and clinical findings patient had acute sinusitis. At this point no antibiotic treatment is warranted. * Admit to general med * TRC/Neb * Continue nasal saline spray * Continue albuterol inhaler 3 mL every 4 as needed * Continue Symbicort 2 puffs 2 times a day * Ipratropium 2.5 mL every 4 * DC IV Solu-Medrol 40 mg Q12 * By mouth azithromycin 250 mg for 5 days * Check flu swab * Follow-up with a chest x-ray results * Follow with the microbiology tests #2 Heart failure with reduced ejection fraction status post ICD placement; patient is not in acute heart failure decompensation * Continue furosemide 40 mg every 48 * Carvedilol 12.5 mg twice a day oh twice a day * Heart failure diets #3 hypertension * Managed per medical team Full code DVT prophylaxis subcutaneous heparin 5000 every 8h Problem List: 1. Full code status 2. Anxiety 3. CHF (congestive heart failure) 4. COPD with exacerbation 5. DVT prophylaxis Consult Acknowledgment - Thank you for your consult request. JALEEL PALOMARES MD 05/23/16 1216: Assessment/Plan Other Findings/Comments: Jaleel Fraser M.D. have examined this patient, reviewed available EMR data, personally reviewed images, discussed with resident/PA/CASING MAN, discussed management plan with housestaff and nursing staff, discussed managment plan all of healthcare providers, discussed management plan with patient and/or family, agreed with resident/PA/CASING MAN. The past history and parts of the chart have been autopopulated. Impression Exacerbation of COPD likely secondary to URI or sinusitis Plan -TRC nebs -Decrease Solu-Medrol to 40 mg IV every 12 -Zithromax -Check influenza -Sputum culture -DVT prophylaxis at all times Consult Acknowledgment - Thank you for your consult request.
--- NOTE | 2016-05-23 08:43 | PN- Housestaff ---
Subjective Follow-up For: Shortness of breath, cough Subjective: Patient has improved since admission. Still has difficulty of breathing. No evidence reported overnight. Denies chest pain, palpitations, dizziness, syncope. Review of Systems Constitutional: Reports: see HPI. Objective Last 24 Hrs of Vital Signs/I&O Vital Signs Date Time Temp Pulse Resp B/P Pulse O2 O2 Flow FiO2 Ox Delivery Rate 05/23 1021 71 122/68 05/23 1021 71 122/68 05/23 0921 Nasal 3.0L Cannula 05/23 0822 Nasal 3.0L Cannula 05/23 0800 Nasal 2.0L Cannula 05/23 0636 97.7 71 20 122/68 95 Nasal Cannula 05/22 2300 94 Nasal 3.0L Cannula 05/22 2220 97.4 82 20 134/76 94 Nasal 2.0L Cannula 05/22 2200 94 Nasal 2.0L Cannula 05/22 2030 98.1 82 18 116/66 97 Room Air 05/22 1945 94 Nasal 2.0L Cannula 05/22 1718 98.6 74 16 120/62 95 Nasal 2.0L Cannula 05/22 1556 95 Nasal 2.0L Cannula 05/22 1530 98.1 78 18 121/66 95 Nasal 2.0L Cannula Intake & Output 05/23 1600 05/23 0800 05/23 0000 Intake Total 250 260 Output Total Balance 250 260 Intake, IV 10 20 Intake, Oral 240 240 Patient 176 lb Weight Physical Exam General Appearance: Alert, Oriented X3, Cooperative, No Acute Distress Skin: No Rashes Cardiovascular: Regular Rate, Normal S1, Normal S2, No Murmurs Lungs: b/l decreased breath sounds, no wheeze Abdomen: Normal Bowel Sounds, Soft, No Tenderness Neurological: Normal Speech Extremities: No Clubbing, No Cyanosis, No Edema Current Medications: Current Medications Sig/Sharyn Start time Last Medication Dose Route Stop Time Status Admin Acetaminophen 650 MG Q6P PRN 05/22 2115 AC 05/23 PO 0544 Albuterol Sulfate 3 ML TID 05/23 1000 AC 05/23 INH 1126 Albuterol Sulfate 3 ML Q4P PRN 05/22 2230 DC 05/23 INH 0153 Albuterol Sulfate 3 ML ONCE ONE 05/22 1945 DC 05/22 INH 05/22 194 194 Albuterol Sulfate 3 ML ONCE ONE 05/22 1600 DC 05/22 INH 05/22 1601 1556 Amlodipine Besylate 5 MG DAILY 05/23 1000 AC 05/23 PO 1021 Aspirin 81 MG DAILY 05/23 1031 AC 05/23 PO 1251 Azithromycin 500 MG DAILY 05/23 1000 AC 05/23 Dextrose/Water 250 ML IV 1023 Azithromycin 500 MG ONCE ONE 05/22 1445 DC 05/22 Dextrose/Water 250 ML IV 05/22 1544 1526 Budesonide/ 2 PUF BID 05/22 2200 AC 05/23 Formoterol Fumarate INH 1021 Carvedilol 12.5 MG BID 05/22 2200 AC 05/23 PO 1021 Ceftriaxone Sodium 1,000 MG EVERY 24 HRS 05/23 1145 AC 05/23 IV 1251 Enoxaparin Sodium 40 MG DAILY 05/23 1000 AC SC Escitalopram Oxalate 5 MG DAILY 05/23 1000 AC 05/23 PO 1021 Fluticasone 2 SPRAY DAILY PRN 05/23 1045 AC 05/23 Propionate ANNELISE 1251 Furosemide 40 MG Q48 05/24 1000 AC PO Ipratropium [place] 2.5 ML TID 05/23 1600 AC 05/23 INH 1126 Lorazepam 0.5 MG BID 05/23 2200 AC PO 05/30 2159 Lorazepam 0.5 MG DAILY 05/22 2136 DC 05/23 PO 05/29 2135 1021 Methylprednisolone 40 MG Q12 05/23 2200 AC IV Methylprednisolone 40 MG Q8 05/22 2200 DC 05/23 IV 0543 Omeprazole 40 MG DAILY AC 05/23 0700 AC 05/23 PO 0544 Sodium Chloride 2 SPRAY Q4P PRN 05/23 1030 AC ANNELISE Sodium Chloride 2 SPRAY Q4P PRN 05/23 0030 CAN ANNELISE Last 24 Hrs of Lab/Lorenzo Results Last 24 Hrs of Labs/Mics: Laboratory Tests 05/23/16 0710: Anion Gap 13, Estimated GFR > 60, BUN/Creatinine Ratio 27.1 H, CBC w Diff MAN DIFF ORDERED, RBC 4.48, MCV 87.0, MCH 28.9, RDW 15.0 H, MPV 8.6, Gran % 94.5 H , Lymphocytes % 5.0 L, Monocytes % 0.5 L, Eosinophils % 0, Basophils % 0 L, Absolute Granulocytes 15.5 H, Segmented Neutrophils 83 H, Band Neutrophils 14 H, Absolute Lymphocytes 0.8 L, Lymphocytes 3 L, Absolute Monocytes 0.1 L, Absolute Eosinophils 0, Absolute Basophils 0, Platelet Estimate VERIFIED BY SMEAR, Poikilocytosis 1+, Anisocytosis 1+, Ovalocytes 1+, PUBS MCHC 33.2 05/22/16 1445: Anion Gap 10, Estimated GFR > 60, BUN/Creatinine Ratio 16.7, Glucose 110 H, Calcium 8.9, Total Bilirubin 0.8, AST 25, ALT 36, Alkaline Phosphatase 92, Troponin I < 0.01, Ype-R-Fokinhyaecd Pept 201 H, Total Protein 6.8, Albumin 3.7 , Globulin 3.1, Albumin/Globulin Ratio 1.2 Assessment/Plan Assessment: This is 61 year female with past medical history of COPD the on 2 L home O2 at 1. but was off oxygen for past 2 months, systolic heart failure, hypertension presented to ER with chief complaint of 2 days history of worsening shortness of breath associated with wheezing and dry cough and a fever of 101.3 likely secondary to COPD exacerbation due to acute bronchitis. 1. Acute COPD exacerbation in setting of CAP as rpt chest x ray showed some infiltrate. - We will start ceftriaxone and continue azithromycin - Start Solu-Medrol 40 mg every 12 hourly - Continue azithromycin 500 mg daily - If patient spikes fever to blood culture, and brings up sputum sent it for sputum culture - Rapid flu was negative - TRC nebulization - Continue Symbicort 2. History of systolic heart failure status post defibrillator placement - No evidence of decompensated heart failure - Continue home dose Lasix 40 mg every other day - Continue carvedilol 12.5 mg twice a day - Patient sees security services specialist Dr. Bello and Dr. Stoll 3. Hypertension Continue home dose carvedilol and amlodipine 4. Depression Continue home dose Lexapro 5 mg daily 5. DVT prophylaxis Subcutaneous Lovenox 6. Full code Problem List: 1. COPD with exacerbation 2. Community acquired bacterial pneumonia 3. CHF (congestive heart failure) 4. Hypertension Pain Ratin Pain Location: no pain Pain Goal: Remain pain free Pain Plan: No need for pain meds Tomorrow's Labs & Rationales: Will need
[2016-05-23 09:22] LABS: ABSOLUTE BASOPHIL COUNT 0 /CUMM (0.0-0.2); ABSOLUTE EOSINOPHIL COUNT 0 /CUMM (0.0-0.7); ABSOLUTE GRANULOCYTE CT 15.5 /CUMM (1.4-6.5); ABSOLUTE LYMPH COUNT 0.8 /CUMM (1.2-3.4); ABSOLUTE MONOCYTE COUNT 0.1 /CUMM (0.10-0.60); BASOPHIL % 0 % (0.0-2.0); EOSINOPHIL % 0 % (0-5); GRANULOCYTE % 94.5 % (42.2-75.2); MEAN CORPUSCULAR HGB 28.9 PG (27.0-31.0); MEAN CORPUSCULAR HGB CONC 33.2 G/DL (33.0-37.0); MEAN PLATELET VOLUME 8.6 FL (7.4-10.4); PLATELET COUNT 282 /CUMM (130-400); RED BLOOD CELL CT 4.48 /CUMM (4.20-5.40); WHITE BLOOD CELL COUNT 16.4 /CUMM (4.8-10.8)
--- NOTE | 2016-05-23 10:09 | RADIOLOGY REPORT ---
EXAMINATION: XR CHEST CLINICAL INFORMATION: Fever, shortness of breath. COMPARISON: 05/22/2016 TECHNIQUE: PA and lateral views of the chest were obtained. FINDINGS: Left-sided pacemaker with single lead, stable. Cardiac and mediastinal silhouette is within normal limits. There is a hazy opacity in the medial aspect of the right lung base, perhaps in the lingula, which appears slightly more prominent as compared to previous, which may reflect bronchovascular crowding/atelectasis, with subtle infiltrate not excluded. No focal consolidation in the left lung. No significant interval change in the subtle nodular opacities in the right upper lung. No pleural effusion, edema or pneumothorax. Mild degenerative changes in the spine. IMPRESSION: Opacity in the medial aspect right lung base, which may reflect bronchovascular crowding/atelectasis versus subtle infiltrate. No significant interval change otherwise.
--- NOTE | 2016-05-23 13:44 | PN- Att Addend ---
Attending Addendum Attending Brief Note Patient seen and examined, feels slightky better than yesterday. Still having shortness of breath and coughing. Vital Signs Date Time Temp Pulse Resp B/P Pulse O2 O2 Flow FiO2 Ox Delivery Rate 05/23 1021 71 122/68 05/23 1021 71 122/68 05/23 0921 Nasal 3.0L Cannula 05/23 0822 Nasal 3.0L Cannula 05/23 0800 Nasal 2.0L Cannula 05/23 0636 97.7 71 20 122/68 95 Nasal Cannula 05/22 2300 94 Nasal 3.0L Cannula 05/22 2220 97.4 82 20 134/76 94 Nasal 2.0L Cannula 05/22 2200 94 Nasal 2.0L Cannula 05/22 2030 98.1 82 18 116/66 97 Room Air 05/22 1945 94 Nasal 2.0L Cannula 05/22 1718 98.6 74 16 120/62 95 Nasal 2.0L Cannula 05/22 1556 95 Nasal 2.0L Cannula 05/22 1530 98.1 78 18 121/66 95 Nasal 2.0L Cannula 05/22 1409 98 Nasal 2.0L Cannula 05/22 1402 93 Nasal 2.0L Cannula on exam; aox3, nad. cv; s1,s2, rrr. resp; + exp wheeze b/l abd; soft, nt, bs+ ext; no edema. Laboratory Tests 05/23 05/22 0710 1445 Chemistry Sodium (137 - 145 mmol/L) 141 138 Potassium (3.5 - 5.1 mmol/L) 4.3 4.1 Chloride (98 - 107 mmol/L) 103 102 Carbon Dioxide (22 - 30 mmol/L) 26 25 Anion Gap (5 - 16) 13 10 BUN (7 - 17 mg/dL) 19 H 15 Creatinine (0.5 - 1.0 mg/dL) 0.7 0.9 Estimated GFR (>60 ml/min) > 60 > 60 BUN/Creatinine Ratio (7 - 25 %) 27.1 H 16.7 Glucose (65 - 99 mg/dL) 110 H Calcium (8.4 - 10.2 mg/dL) 8.9 Total Bilirubin (0.2 - 1.3 mg/dL) 0.8 AST (14 - 36 U/L) 25 ALT (9 - 52 U/L) 36 Alkaline Phosphatase (<127 U/L) 92 Troponin I (< 0.11 ng/ml) < 0.01 Zmp-[id number]-Tnqiicuikjz Pept (<125 pg/mL) 201 H Total Protein (6.3 - 8.2 g/dL) 6.8 Albumin (3.5 - 5.0 g/dL) 3.7 Globulin (1.9 - 4.2 gm/dL) 3.1 Albumin/Globulin Ratio (1.1 - 2.2 %) 1.2 Hematology CBC w Diff MAN DIFF ORDERED WBC (4.8 - 10.8 /CUMM) 16.4 H RBC (4.20 - 5.40 /CUMM) 4.48 Hgb (12.0 - 16.0 G/DL) 12.9 Hct (37 - 47 %) 39.0 MCV (81.0 - 99.0 FL) 87.0 MCH (27.0 - 31.0 PG) 28.9 RDW (11.5 - 14.5 %) 15.0 H Plt Count (130 - 400 /CUMM) 282 MPV (7.4 - 10.4 FL) 8.6 Gran % (42.2 - 75.2 %) 94.5 H Lymphocytes % (20.5 - 51.1 %) 5.0 L Monocytes % (1.7 - 9.3 %) 0.5 L Eosinophils % (0 - 5 %) 0 Basophils % (0.0 - 2.0 %) 0 L Absolute Granulocytes (1.4 - 6.5 /CUMM) 15.5 H Segmented Neutrophils (42.2 - 75.2 %) 83 H Band Neutrophils (0.0 - 5.0 %) 14 H Absolute Lymphocytes (1.2 - 3.4 /CUMM) 0.8 L Lymphocytes (20.5 - 51.1 %) 3 L Absolute Monocytes (0.10 - 0.60 /CUMM) 0.1 L Absolute Eosinophils (0.0 - 0.7 /CUMM) 0 Absolute Basophils (0.0 - 0.2 /CUMM) 0 Platelet Estimate (ADEQUATE) VERIFIED BY SMEAR Poikilocytosis 1+ Anisocytosis 1+ Ovalocytes 1+ PUBS MCHC (33.0 - 37.0 G/DL) 33.2 05/22 1350 Hematology CBC w Diff NO MAN DIFF REQ WBC (4.8 - 10.8 /CUMM) 13.1 H RBC (4.20 - 5.40 /CUMM) 4.62 Hgb (12.0 - 16.0 G/DL) 13.4 Hct (37 - 47 %) 40.0 MCV (81.0 - 99.0 FL) 86.6 MCH (27.0 - 31.0 PG) 28.9 RDW (11.5 - 14.5 %) 14.9 H Plt Count (130 - 400 /CUMM) 258 MPV (7.4 - 10.4 FL) 8.5 Gran % (42.2 - 75.2 %) 80.1 H Lymphocytes % (20.5 - 51.1 %) 11.4 L Monocytes % (1.7 - 9.3 %) 7.6 Eosinophils % (0 - 5 %) 0.4 Basophils % (0.0 - 2.0 %) 0.5 Absolute Granulocytes (1.4 - 6.5 /CUMM) 10.5 H Absolute Lymphocytes (1.2 - 3.4 /CUMM) 1.5 Absolute Monocytes (0.10 - 0.60 /CUMM) 1.0 H Absolute Eosinophils (0.0 - 0.7 /CUMM) 0 Absolute Basophils (0.0 - 0.2 /CUMM) 0.1 PUBS MCHC (33.0 - 37.0 G/DL) 33.3 A/P; 61 y/o F with pmh sig for ch systolic chf, chronic resp failure, COPD with 2 lit home O2 dependent, admitted with acute COPD exacerbation, community aquired pneumonia. Continue IV steroids. Patient has been getting IV azithromycin. This morning's chest x-ray shows possibility of pneumonia therefore he had ceftriaxone. Continue TRC nebs. We'll follow-up on the cultures. Continue other currents meds. DVT Px; Lovenox.
[2016-05-23 14:20] VITALS: BP 100/60
--- NOTE | 2016-05-23 16:10 | NUR ---
PT TO GO DOWN TO ICU TO VISIT , DISTRIBUTION CALLED TO ASSIST
[2016-05-23 22:21] VITALS: BP 138/72
[2016-05-24 06:35] VITALS: BP 140/70
[2016-05-24 08:01] LABS: ABSOLUTE BASOPHIL COUNT 0 /CUMM (0.0-0.2); ABSOLUTE EOSINOPHIL COUNT 0 /CUMM (0.0-0.7); ABSOLUTE GRANULOCYTE CT 23.1 /CUMM (1.4-6.5); ABSOLUTE LYMPH COUNT 0.8 /CUMM (1.2-3.4); ABSOLUTE MONOCYTE COUNT 0.5 /CUMM (0.10-0.60); BASOPHIL % 0 % (0.0-2.0); EOSINOPHIL % 0 % (0-5); GRANULOCYTE % 94.7 % (42.2-75.2); HEMATOCRIT 38.3 % (37-47); MEAN CORPUSCULAR HGB CONC 33.3 G/DL (33.0-37.0); MEAN CORPUSCULAR VOLUME 87.2 FL (81.0-99.0); MEAN PLATELET VOLUME 8.6 FL (7.4-10.4); PLATELET COUNT 295 /CUMM (130-400); RBC DISTRIBUTION WIDTH 14.8 % (11.5-14.5); RED BLOOD CELL CT 4.39 /CUMM (4.20-5.40); WHITE BLOOD CELL COUNT 24.4 /CUMM (4.8-10.8)
--- NOTE | 2016-05-24 08:14 | PN- Housestaff ---
CHARLENE ZIMMERMAN,HEIDI 05/24/16 0814: Subjective Follow-up For: COPD exacerbation, pneumonia Subjective: Patient today and still feels the same. Complains of shortness of breath on mild exertion. Currently on 3 L nasal cannula. No overnight events reported. Denies chest pain, palpitations, dizziness, syncopal episodes. Review of Systems Constitutional: Reports: see HPI. Objective Last 24 Hrs of Vital Signs/I&O Vital Signs Date Time Temp Pulse Resp B/P Pulse O2 O2 Flow FiO2 Ox Delivery Rate 05/24 1006 70 140/70 05/24 1006 70 140/70 05/24 0833 96 Nasal 2.0L Cannula 05/24 0800 Nasal 3.0L Cannula 05/24 0635 98.0 70 19 140/70 93 Nasal Cannula 05/24 0000 93 Nasal 2.0L Cannula 05/23 2221 98.2 70 18 138/72 93 Nasal 2.0L Cannula 05/23 2158 138/72 05/23 1600 91 Nasal 3.0L Cannula 05/23 1545 97 Nasal 3.0L Cannula 05/23 1420 97.6 76 20 100/60 96 Nasal 3.0L Cannula Intake & Output 05/24 1600 05/24 0800 05/24 0000 Intake Total 300 450 Output Total Balance 300 450 Intake, Oral 300 450 Physical Exam General Appearance: Alert, Oriented X3, Cooperative, No Acute Distress Cardiovascular: Regular Rate, Normal S1, Normal S2, No Murmurs Lungs: b/l diffuse expiratory wheeze present, no crackles Abdomen: Normal Bowel Sounds, Soft, No Tenderness Extremities: No Clubbing, No Cyanosis, No Edema Current Medications: Current Medications Sig/Sharyn Start time Last Medication Dose Route Stop Time Status Admin Acetaminophen 650 MG .STK-MED ONE 05/23 1922 DC PO 05/23 1923 Acetaminophen 650 MG Q6P PRN 05/22 2115 AC 05/24 PO 1018 Albuterol Sulfate 3 ML TID 05/23 1000 AC 05/24 INH 0830 Amlodipine Besylate 5 MG DAILY 05/23 1000 AC 05/24 PO 1006 Aspirin 81 MG DAILY 05/23 1031 AC 05/24 PO 1006 Azithromycin 500 MG DAILY 05/23 1000 AC 05/24 Dextrose/Water 250 ML IV 1007 Budesonide/ 2 PUF BID 05/22 2200 AC 05/24 Formoterol Fumarate INH 1006 Carvedilol 12.5 MG BID 05/22 2200 AC 05/24 PO 1006 Ceftriaxone Sodium 1,000 MG EVERY 24 HRS 05/23 1145 AC 05/24 IV 1006 Enoxaparin Sodium 40 MG DAILY 05/23 1000 AC SC Escitalopram Oxalate 5 MG DAILY 05/23 1000 AC 05/24 PO 1005 Fluticasone 2 SPRAY DAILY PRN 05/23 1045 AC 05/24 Propionate ANNELISE 1017 Furosemide 40 MG Q48 05/24 1000 AC 05/24 PO 1005 Ipratropium [place] 2.5 ML TID 05/23 1600 AC 05/24 INH 0830 Lorazepam 0.25 MG ONE ONE 05/24 0100 DC 05/24 PO 05/24 0101 0059 Lorazepam 0.25 MG ONE ONE 05/23 2345 CAN PO 05/23 2346 Lorazepam 0.5 MG BID 05/23 2200 AC 05/24 PO 05/30 2159 1005 Methylprednisolone 40 MG Q8 05/24 1400 AC IV Methylprednisolone 40 MG Q12 05/23 2200 DC 05/24 IV 1006 Omeprazole 40 MG DAILY AC 05/23 0700 AC 05/24 PO 0611 Sodium Chloride 2 SPRAY Q4P PRN 05/23 1030 AC ANNELISE Last 24 Hrs of Lab/Lorenzo Results Last 24 Hrs of Labs/Mics: Laboratory Tests 05/24/16 0600: CBC w Diff MAN DIFF ORDERED, RBC 4.39, MCV 87.2, MCH 29.0, RDW 14.8 H, MPV 8.6, Gran % 94.7 H, Lymphocytes % 3.3 L, Monocytes % 2.0, Eosinophils % 0, Basophils % 0 L, Absolute Granulocytes 23.1 H, Segmented Neutrophils 82 H, Band Neutrophils 10 H, Absolute Lymphocytes 0.8 L, Lymphocytes 6 L, Monocytes 2, Absolute Monocytes 0.5, Absolute Eosinophils 0, Absolute Basophils 0, Platelet Estimate VERIFIED BY SMEAR, Anisocytosis 1+, PUBS MCHC 33.3 Microbiology 05/24 939 LOWER RESP: Respiratory Culture - COLB 05/24 939 LOWER RESP: Gram Stain - COLB Assessment/Plan Assessment: This is 61 year female with past medical history of COPD the on 2 L home O2 at 1. but was off oxygen for past 2 months, systolic heart failure, hypertension presented to ER with chief complaint of 2 days history of worsening shortness of breath associated with wheezing and dry cough and a fever of 101.3 likely secondary to COPD exacerbation due to community-acquired pneumonia 1. Acute COPD exacerbation in setting of CAP as rpt chest x ray showed some infiltrate. - on day 2 of antibiotic -Change IV Solu-Medrol to 40 every 8 today - If patient spikes fever to blood culture - Sputum culture was negative - TRC nebulization - Continue Symbicort 2. History of systolic heart failure status post defibrillator placement - No evidence of decompensated heart failure - Continue home dose Lasix 40 mg every other day - Continue carvedilol 12.5 mg twice a day - Patient sees jewelry engraver Dr. Bello and Dr. Stoll 3. Hypertension Continue home dose carvedilol and amlodipine 4. Depression Continue home dose Lexapro 5 mg daily 5. DVT prophylaxis Subcutaneous Lovenox 6. Full code Problem List: 1. Community acquired bacterial pneumonia 2. CHF (congestive heart failure) 3. COPD with exacerbation Pain Ratin Pain Location: None Pain Goal: no pain Pain Plan: Did not receive pain medication Tomorrow's Labs & Rationales: Will need it NATALIA ZIMMERMAN,[facility] 05/24/16 1135: Attending MD Review Statement Attending Statement Attending MD Statement: examined this patient, discuss w/resident/PA/RECEIVER STOCKER, agreed w/resident/PA/RECEIVER STOCKER, reviewed EMR data (avail), discussed with nursing, discussed with case mgmt, reviewed images, amended to note Attending Assessment/Plan: Patient seen and examined, not feeling well. She still very short of breath and activity wheezing. Vital Signs Date Time Temp Pulse Resp B/P Pulse O2 O2 Flow FiO2 Ox Delivery Rate 05/24 1006 70 140/70 05/24 1006 70 140/70 05/24 0833 96 Nasal 2.0L Cannula 05/24 0635 98.0 70 19 140/70 93 Nasal Cannula 05/24 0000 93 Nasal 2.0L Cannula 05/23 2221 98.2 70 18 138/72 93 Nasal 2.0L Cannula 05/23 2158 138/72 05/23 1600 91 Nasal 3.0L Cannula 05/23 1545 97 Nasal 3.0L Cannula 05/23 1420 97.6 76 20 100/60 96 Nasal 3.0L Cannula on exam; aox3, nad. cv; s1,s2, rrr. resp; + exp wheeze b/l abd; soft, nt, bs+ ext; no edema. Laboratory Tests 05/24 0600 Hematology CBC w Diff MAN DIFF ORDERED WBC (4.8 - 10.8 /CUMM) 24.4 H RBC (4.20 - 5.40 /CUMM) 4.39 Hgb (12.0 - 16.0 G/DL) 12.8 Hct (37 - 47 %) 38.3 MCV (81.0 - 99.0 FL) 87.2 MCH (27.0 - 31.0 PG) 29.0 RDW (11.5 - 14.5 %) 14.8 H Plt Count (130 - 400 /CUMM) 295 MPV (7.4 - 10.4 FL) 8.6 Gran % (42.2 - 75.2 %) 94.7 H Lymphocytes % (20.5 - 51.1 %) 3.3 L Monocytes % (1.7 - 9.3 %) 2.0 Eosinophils % (0 - 5 %) 0 Basophils % (0.0 - 2.0 %) 0 L Absolute Granulocytes (1.4 - 6.5 /CUMM) 23.1 H Segmented Neutrophils (42.2 - 75.2 %) 82 H Band Neutrophils (0.0 - 5.0 %) 10 H Absolute Lymphocytes (1.2 - 3.4 /CUMM) 0.8 L Lymphocytes (20.5 - 51.1 %) 6 L Monocytes (1.7 - 9.3 %) 2 Absolute Monocytes (0.10 - 0.60 /CUMM) 0.5 Absolute Eosinophils (0.0 - 0.7 /CUMM) 0 Absolute Basophils (0.0 - 0.2 /CUMM) 0 Platelet Estimate (ADEQUATE) VERIFIED BY SMEAR Anisocytosis 1+ PUBS MCHC (33.0 - 37.0 G/DL) 33.3 A/P; 61 y/o F with pmh sig for ch systolic chf, chronic resp failure, COPD with 2 lit home O2 dependent, admitted with acute COPD exacerbation, community aquired pneumonia. Will continue IV SoluMedrol at 40 mg IV every 8 hours today. Continue IV antibiotics and try to obtain sputum cultures. Continue TRC nebs. Continue all other current medications. DVT prophylaxis: Lovenox.
--- NOTE | 2016-05-24 11:50 | PN- Pulmonary ---
Subjective HPI/Critical Care Issues: pt seen and examined doing better still with dyspnea and wheezing but improved no n/v/d/c no mena Objective Current Medications: Current Medications Sig/Sharyn Start time Last Medication Dose Route Stop Time Status Admin Acetaminophen 650 MG .STK-MED ONE 05/23 1922 DC PO 05/23 192 Acetaminophen 650 MG Q6P PRN 05/22 2115 AC 05/24 PO 1018 Albuterol Sulfate 3 ML TID 05/23 1000 AC 05/24 INH 0830 Amlodipine Besylate 5 MG DAILY 05/23 1000 AC 05/24 PO 1006 Aspirin 81 MG DAILY 05/23 1031 AC 05/24 PO 1006 Azithromycin 500 MG DAILY 05/23 1000 AC 05/24 Dextrose/Water 250 ML IV 1007 Budesonide/ 2 PUF BID 05/22 2200 AC 05/24 Formoterol Fumarate INH 1006 Carvedilol 12.5 MG BID 05/22 2200 AC 05/24 PO 1006 Ceftriaxone Sodium 1,000 MG EVERY 24 HRS 05/23 1145 AC 05/24 IV 1006 Enoxaparin Sodium 40 MG DAILY 05/23 1000 AC SC Escitalopram Oxalate 5 MG DAILY 05/23 1000 AC 05/24 PO 1005 Fluticasone 2 SPRAY DAILY PRN 05/23 1045 AC 05/24 Propionate ANNELISE 1017 Furosemide 40 MG Q48 05/24 1000 AC 05/24 PO 1005 Ipratropium [place] 2.5 ML TID 05/23 1600 AC 05/24 INH 0830 Lorazepam 0.25 MG ONE 05/24 0100 DC 05/24 PO 05/24 0101 0059 Lorazepam 0.25 MG ONE 05/23 2345 CAN PO 05/23 2346 Lorazepam 0.5 MG BID 05/23 2200 AC 05/24 PO 05/30 2159 1005 Methylprednisolone 40 MG Q8 05/24 1400 AC IV Methylprednisolone 40 MG Q12 05/23 2200 DC 05/24 IV 1006 Omeprazole 40 MG DAILY AC 05/23 0700 AC 05/24 PO 0611 Sodium Chloride 2 SPRAY Q4P PRN 05/23 1030 AC ANNELISE Vital Signs & I&O Last 24 Hrs of Vitals and I&O: Vital Signs Date Time Temp Pulse Resp B/P Pulse O2 O2 Flow FiO2 Ox Delivery Rate 05/24 1006 70 140/70 05/24 1006 70 140/70 05/24 0833 96 Nasal 2.0L Cannula 05/24 0635 98.0 70 19 140/70 93 Nasal Cannula 05/24 0000 93 Nasal 2.0L Cannula 05/23 2221 98.2 70 18 138/72 93 Nasal 2.0L Cannula 05/23 2158 138/72 05/23 1600 91 Nasal 3.0L Cannula 05/23 1545 97 Nasal 3.0L Cannula 05/23 1420 97.6 76 20 100/60 96 Nasal 3.0L Cannula Intake & Output 05/24 1600 05/24 0800 05/24 0000 Intake Total 300 450 Output Total Balance 300 450 Intake, Oral 300 450 Exam Other Physical Findings: gen awake and alert heent ncat cvs s1, s2 lungs wheezing b/l abd soft bs+ ext without edema Results Last 24 Hrs of Lab Results: Laboratory Tests 05/24/16 0600: CBC w Diff MAN DIFF ORDERED, RBC 4.39, MCV 87.2, MCH 29.0, RDW 14.8 H, MPV 8.6, Gran % 94.7 H, Lymphocytes % 3.3 L, Monocytes % 2.0, Eosinophils % 0, Basophils % 0 L, Absolute Granulocytes 23.1 H, Segmented Neutrophils 82 H, Band Neutrophils 10 H, Absolute Lymphocytes 0.8 L, Lymphocytes 6 L, Monocytes 2, Absolute Monocytes 0.5, Absolute Eosinophils 0, Absolute Basophils 0, Platelet Estimate VERIFIED BY SMEAR, Anisocytosis 1+, PUBS MCHC 33.3 Impression/Plan Impression/Plan Impression/Plan: Impression 61 year old woman Exacerbation of COPD likely secondary to URI or sinusitis Leukocytosis could be steroid induced/reactive, however will monitor Plan -[facility] nebs -d/c solumedrol -would begin prednisone 40mg x 2, 30x2, 20x2, 10x2 then stop -Zithromax -f/u sputum cx -monitor leukocytosis -DVT prophylaxis at all times
[2016-05-24 15:14] VITALS: BP 140/80
[2016-05-25 06:34] VITALS: BP 138/78
[2016-05-25 07:59] LABS: ABSOLUTE BASOPHIL COUNT 0 /CUMM (0.0-0.2); ABSOLUTE EOSINOPHIL COUNT 0 /CUMM (0.0-0.7); ABSOLUTE GRANULOCYTE CT 19.9 /CUMM (1.4-6.5); ABSOLUTE LYMPH COUNT 1.2 /CUMM (1.2-3.4); ABSOLUTE MONOCYTE COUNT 0.6 /CUMM (0.10-0.60); BASOPHIL % 0 % (0.0-2.0); EOSINOPHIL % 0 % (0-5); GRANULOCYTE % 91.4 % (42.2-75.2); HEMATOCRIT 38.7 % (37-47); MEAN CORPUSCULAR HGB 28.8 PG (27.0-31.0); MEAN CORPUSCULAR HGB CONC 33.5 G/DL (33.0-37.0); MEAN PLATELET VOLUME 8.5 FL (7.4-10.4); PLATELET COUNT 320 /CUMM (130-400); RBC DISTRIBUTION WIDTH 14.7 % (11.5-14.5); WHITE BLOOD CELL COUNT 21.7 /CUMM (4.8-10.8)
--- NOTE | 2016-05-25 08:12 | PN- Housestaff ---
CHARLENE ZIMMERMAN,HEIDI 05/25/16 0812: Subjective Follow-up For: COPD exacerbation Subjective: Patient appears more comfortable today states her breathing is improved. She is able to walk to the restroom without difficulty today Denies chest pain, palpitations, orthopnea, leg swelling No overnight events reported Review of Systems Constitutional: Reports: see HPI. Objective Last 24 Hrs of Vital Signs/I&O Vital Signs Date Time Temp Pulse Resp B/P Pulse O2 O2 Flow FiO2 Ox Delivery Rate 05/25 0722 92 Nasal 2.0L Cannula 05/25 0634 97.7 73 19 138/78 91 Nasal 2.0L Cannula 05/25 0000 Nasal 2.0L Cannula 05/24 2104 97.5 69 18 142/80 05/24 1830 93 Nasal 2.0L Cannula 05/24 1600 Nasal 2.0L Cannula 05/24 1514 97.7 83 20 140/80 83 05/24 1006 70 140/70 05/24 1006 70 140/70 Intake & Output 05/25 1600 05/25 0800 05/25 0000 Intake Total 300 480 Output Total Balance 300 480 Intake, Oral 300 480 Physical Exam General Appearance: Alert, Oriented X3, Cooperative, No Acute Distress Skin: No Rashes Cardiovascular: Regular Rate, Normal S1, Normal S2, No Murmurs Lungs: bilateral diffuse expiratory wheezing present Abdomen: Normal Bowel Sounds, Soft, No Tenderness Neurological: Normal Speech Extremities: No Clubbing, No Cyanosis, No Edema Current Medications: Current Medications Sig/Sharyn Start time Last Medication Dose Route Stop Time Status Admin Acetaminophen 650 MG .STK-MED ONE 05/24 2057 DC PO 05/24 2058 Acetaminophen 650 MG .STK-MED ONE 05/24 1013 DC PO 05/24 1014 Acetaminophen 650 MG Q6P PRN 05/22 2115 AC 05/25 PO 0600 Albuterol Sulfate 3 ML TID 05/23 1000 05/25 INH 0719 Amlodipine Besylate 5 MG DAILY 05/23 1000 05/24 PO 1006 Aspirin 81 MG DAILY 05/23 1031 05/24 PO 1006 Azithromycin 500 MG DAILY 05/23 1000 05/24 Dextrose/Water 250 ML IV 1007 Budesonide/ 2 PUF BID 05/22 Formoterol Fumarate INH 210 Carvedilol 12.5 MG BID 05/22 2199 AC 05/24 PO 2104 Ceftriaxone Sodium 1,000 MG EVERY 24 HRS 05/23 1145 AC 05/24 IV 1006 Enoxaparin Sodium 40 MG DAILY 05/23 1000 AC SC Escitalopram Oxalate 5 MG DAILY 05/23 1000 AC 05/24 PO 1005 Fluticasone 2 SPRAY DAILY PRN 05/23 1045 AC 05/24 Propionate ANNELISE 1017 Furosemide 40 MG Q48 05/24 1000 AC 05/24 PO 1005 Ipratropium [place] 2.5 ML TID 05/23 1600 AC 05/25 INH 0720 Lorazepam 0.5 MG BID 05/23 2200 AC 05/24 PO 05/30 2159 2104 Methylprednisolone 40 MG Q8 05/24 1400 AC 05/25 IV 0600 Methylprednisolone 40 MG Q12 05/23 2200 DC 05/24 IV 1006 Omeprazole 40 MG DAILY AC 05/23 0700 AC 05/25 PO 0601 Patient Medication 1 ED .STK-MED ONE 05/24 1416 PA Teaching ED 05/24 1417 Sodium Chloride 2 SPRAY Q4P PRN 05/23 1030 AC ANNELISE Last 24 Hrs of Lab/Lorenzo Results Last 24 Hrs of Labs/Mics: Laboratory Tests 05/25/16 0606: CBC w Diff MAN DIFF ORDERED, RBC 4.50, MCV 86.0, MCH 28.8, RDW 14.7 H, MPV 8.5, Gran % 91.4 H, Lymphocytes % 5.7 L, Monocytes % 2.9, Eosinophils % 0, Basophils % 0 L, Absolute Granulocytes 19.9 H, Segmented Neutrophils 87 H, Band Neutrophils 5, Absolute Lymphocytes 1.2, Lymphocytes 7 L, Monocytes 1 L, Absolute Monocytes 0.6, Absolute Eosinophils 0, Absolute Basophils 0, Platelet Estimate ADEQUATE, Normocytic RBCs VERIFIED, Normochromic RBCs VERIFIED, PUBS MCHC 33.5 Microbiology 05/24 1559 LOWER RESP: Respiratory Culture - RES 05/24 155 LOWER RESP: Gram Stain - RES Assessment/Plan Assessment: This is 61 year female with past medical history of COPD the on 2 L home O2 at 1. but was off oxygen for past 2 months, systolic heart failure, hypertension presented to ER with chief complaint of 2 days history of worsening shortness of breath associated with wheezing and dry cough and a fever of 101.3 likely secondary to COPD exacerbation due to community-acquired pneumonia 1. Acute COPD exacerbation in setting of CAP as rpt chest x ray showed some infiltrate. - on day 3 of antibiotic. WIll change to PO abx starting tomorrow - change to PO 60mg daily. - Sputum culture was negative - TRC nebulization - Continue Symbicort 2. History of systolic heart failure status post defibrillator placement - No evidence of decompensated heart failure - Continue home dose Lasix 40 mg every other day - Continue carvedilol 12.5 mg twice a day - Patient sees master tax advisor Dr. Bello and Dr. Stoll 3. Hypertension Continue home dose carvedilol and amlodipine 4. Depression Continue home dose Lexapro 5 mg daily 5. DVT prophylaxis Subcutaneous Lovenox 6. Full code Problem List: 1. Community acquired bacterial pneumonia 2. COPD with exacerbation Pain Ratin Pain Location: Headache Pain Goal: Remain pain free Pain Plan: Ibuprofen Tomorrow's Labs & Rationales: Not needed NATALIA ZIMMERMAN,[facility] 05/25/16 1102: Attending MD Review Statement Attending Statement Attending MD Statement: examined this patient, discuss w/resident/PA/PREMIUM NOTE INTEREST CALCULATOR CLERK, agreed w/resident/PA/PREMIUM NOTE INTEREST CALCULATOR CLERK, reviewed EMR data (avail), discussed with nursing, discussed with case mgmt, amended to note Attending Assessment/Plan: Patient seen and examined, did complained off having a headache. Breathing has improved. Still has some wheezing. Vital Signs Date Time Temp Pulse Resp B/P Pulse O2 O2 Flow FiO2 Ox Delivery Rate 05/25 1003 82 148/80 05/25 1003 82 148/80 05/25 0722 92 Nasal 2.0L Cannula 05/25 0634 97.7 73 19 138/78 91 Nasal 2.0L Cannula 05/25 0000 Nasal 2.0L Cannula 05/24 2104 97.5 69 18 142/80 05/24 1830 93 Nasal 2.0L Cannula 05/24 1600 Nasal 2.0L Cannula 05/24 1514 97.7 83 20 140/80 83 on exam; aox3, nad. cv; s1,s2, rrr. resp; b/l exp wheeze. abd; soft, nt, bs+ ext; no edema Laboratory Tests 05/25 06 Hematology CBC w Diff MAN DIFF ORDERED WBC (4.8 - 10.8 /CUMM) 21.7 H RBC (4.20 - 5.40 /CUMM) 4.50 Hgb (12.0 - 16.0 G/DL) 13.0 Hct (37 - 47 %) 38.7 MCV (81.0 - 99.0 FL) 86.0 MCH (27.0 - 31.0 PG) 28.8 RDW (11.5 - 14.5 %) 14.7 H Plt Count (130 - 400 /CUMM) 320 MPV (7.4 - 10.4 FL) 8.5 Gran % (42.2 - 75.2 %) 91.4 H Lymphocytes % (20.5 - 51.1 %) 5.7 L Monocytes % (1.7 - 9.3 %) 2.9 Eosinophils % (0 - 5 %) 0 Basophils % (0.0 - 2.0 %) 0 L Absolute Granulocytes (1.4 - 6.5 /CUMM) 19.9 H Segmented Neutrophils (42.2 - 75.2 %) 87 H Band Neutrophils (0.0 - 5.0 %) 5 Absolute Lymphocytes (1.2 - 3.4 /CUMM) 1.2 Lymphocytes (20.5 - 51.1 %) 7 L Monocytes (1.7 - 9.3 %) 1 L Absolute Monocytes (0.10 - 0.60 /CUMM) 0.6 Absolute Eosinophils (0.0 - 0.7 /CUMM) 0 Absolute Basophils (0.0 - 0.2 /CUMM) 0 Platelet Estimate (ADEQUATE) ADEQUATE Normocytic RBCs VERIFIED Normochromic RBCs VERIFIED PUBS MCHC (33.0 - 37.0 G/DL) 33.5 A/P; 61 y/o F with pmh sig for ch systolic chf, chronic resp failure, COPD with 2 lit home O2 dependent, admitted with acute COPD exacerbation, community aquired pneumonia. We'll switch her steroids to oral today. We'll start the prednisone taper. Agree with the ibuprofen for headache. Continue TRC nebs. We will keep her on IV antibiotics and likely switch her to oral tomorrow. Patient doing better with humidified oxygen. Continue TRC nebs and other current meds. DVT px: Lovenox. Possible discharge home tomorrow.
--- NOTE | 2016-05-25 10:07 | PN- Pulmonary ---
Subjective HPI/Critical Care Issues: pt seen and examined headache today, gets mena intermittently some wheezing but returning to respiratory baseline no n/v/d/c no cp Objective Current Medications: Current Medications Sig/Sharyn Start time Last Medication Dose Route Stop Time Status Admin Acetaminophen 650 MG .STK-MED ONE 05/24 2057 DC PO 05/24 2058 Acetaminophen 650 MG .STK-MED ONE 05/24 1013 DC PO 05/24 1014 Acetaminophen 650 MG Q6P PRN 05/22 2115 AC 05/25 PO 0600 Albuterol Sulfate 3 ML TID 05/23 1000 AC 05/25 INH 0719 Amlodipine Besylate 5 MG DAILY 05/23 1000 AC 05/24 PO 1006 Aspirin 81 MG DAILY 05/23 1031 AC 05/24 PO 1006 Azithromycin 500 MG DAILY 05/23 1000 AC 05/24 Dextrose/Water 250 ML IV 1007 Budesonide/ 2 PUF BID 05/22 2200 AC 05/24 Formoterol Fumarate INH 2104 Carvedilol 12.5 MG BID 05/22 2200 AC 05/24 PO 2104 Ceftriaxone Sodium 1,000 MG EVERY 24 HRS 05/23 1145 AC 05/24 IV 1006 Enoxaparin Sodium 40 MG DAILY 05/23 1000 AC SC Escitalopram Oxalate 5 MG DAILY 05/23 1000 AC 05/24 PO 1005 Fluticasone 2 SPRAY DAILY PRN 05/23 1045 AC 05/24 Propionate ANNELISE 1017 Furosemide 40 MG Q48 05/24 1000 AC 05/24 PO 1005 Ibuprofen 400 MG Q8P PRN 05/25 0930 AC PO Ipratropium [place] 2.5 ML TID 05/23 1600 AC 05/25 INH 0720 Lorazepam 0.5 MG BID 05/23 2200 AC 05/24 PO 05/30 2159 2104 Methylprednisolone 40 MG Q8 05/24 1400 DC 05/25 IV 0600 Methylprednisolone 40 MG Q12 05/23 2200 DC 05/24 IV 1006 Omeprazole 40 MG DAILY AC 05/23 0700 AC 05/25 PO 0601 Patient Medication 1 ED .STK-MED ONE 05/24 1416 DC Teaching ED 05/24 1417 Prednisone 60 MG DAILY 05/25 1000 AC PO Sodium Chloride 2 SPRAY Q4P PRN 05/23 1030 AC ANNELISE Vital Signs & I&O Last 24 Hrs of Vitals and I&O: Vital Signs Date Time Temp Pulse Resp B/P Pulse O2 O2 Flow FiO2 Ox Delivery Rate 05/25 0722 92 Nasal 2.0L Cannula 05/25 0634 97.7 73 19 138/78 91 Nasal 2.0L Cannula 05/25 0000 Nasal 2.0L Cannula 05/24 2104 97.5 69 18 142/80 05/24 1830 93 Nasal 2.0L Cannula 05/24 1600 Nasal 2.0L Cannula 05/24 1514 97.7 83 20 140/80 83 Intake & Output 05/25 1600 05/25 0800 05/25 0000 Intake Total 300 480 Output Total Balance 300 480 Intake, Oral 300 480 Exam Other Physical Findings: gen awake and alert heent ncat cvs s1, s2 lungs wheezing b/l abd soft bs+ ext without edema Results Last 24 Hrs of Lab Results: Laboratory Tests 05/25/16 0606: CBC w Diff MAN DIFF ORDERED, RBC 4.50, MCV 86.0, MCH 28.8, RDW 14.7 H, MPV 8.5, Gran % 91.4 H, Lymphocytes % 5.7 L, Monocytes % 2.9, Eosinophils % 0, Basophils % 0 L, Absolute Granulocytes 19.9 H, Segmented Neutrophils 87 H, Band Neutrophils 5, Absolute Lymphocytes 1.2, Lymphocytes 7 L, Monocytes 1 L, Absolute Monocytes 0.6, Absolute Eosinophils 0, Absolute Basophils 0, Platelet Estimate ADEQUATE, Normocytic RBCs VERIFIED, Normochromic RBCs VERIFIED, PUBS MCHC 33.5 Impression/Plan Impression/Plan Impression/Plan: Impression 61 year old woman Exacerbation of COPD likely secondary to URI or sinusitis Leukocytosis could be steroid induced/reactive, however will monitor Plan -TRC nebs -prednisone taper, would stop iv solumedrol -headache control -Zithromax -f/u sputum cx -monitor leukocytosis -DVT prophylaxis at all times DC planning
[2016-05-25 14:43] VITALS: BP 130/84
[2016-05-25] MEDS ORDERED: AMOX-CLAV 875-1 EACH PO (21:07)
[2016-05-25] MEDS ORDERED: PREDNISONE10 M2 PO (21:07)
--- NOTE | 2016-05-25 21:08 | Patient Discharge Instructions ---
Discharge Instructions General Discharge Information You were seen/treated for: copd exacerbation due to pneumonia Special Instructions: 1. Follow up with PCP in a week upon discharge 2. Follow up with Pulmonary in 2 weeks. Pls call his office and reschedule the appointment sooner. Diet Recommended Diet: Heart Healthy Activity Activity Self Limited: Yes Acute Coronary Syndrome Inclusion Criteria At DC or during hospital stay patient has or had the following: ACS DIAGNOSIS No Discharge Core Measures Meds if any: Prescribed or Continued at Discharge Meds if any: NOT Prescribed or Continued at Discharge Congestive Heart Failure Inclusion Criteria At DC or during hospital stay patient has or had the following: CHF DIAGNOSIS No Discharge Core Measures Meds if any: Prescribed or Continued at Discharge Meds if any: NOT Prescribed or Continued at Discharge Cerebrovascular accident Inclusion Criteria At DC or during hospital stay patient has or had the following: CVA/TIA Diagnosis No Discharge Core Measures Meds if any: Prescribed or Continued at Discharge Meds if any: NOT Prescribed or Continued at Discharge Venous thromboembolism Inclusion Criteria VTE Diagnosis No VTE Type NONE VTE Confirmed by (Test) NONE Discharge Core Measures - Per Current guidelines, there needs to be overlap - treatment for the first 5 days of Warfarin therapy. - If discharged on Warfarin prior to 5 days of - overlap therapy, the patient will need to be - assessed for post discharge needs including - *Post discharge parental anticoagulation - *Warfarin and/or parental anticoagulation education - *Follow up date to check INR post discharge At least 5 days overlap therapy as Inpatient No Meds if any: Prescribed or Continued at Discharge Note: Overlap Therapy is Warfarin and Anticoagulant Meds if any: NOT Prescribed or Continued at Discharge
[2016-05-25 21:40] VITALS: BP 130/64
--- NOTE | 2016-05-25 23:00 | NUR ---
PT C/O H/A, MOTRIN AND TYLENOL WERE NOT WORKING. NOTIFIED . TYLENOL #3 ONE TIME ORDER. LATER THAT EVENING, PT C/O STOMACH ACHE, REPORTS TAKING ZANTAC @ HOME. NOTIFIED , PEPCID WAS ADMINISTERED. WILL CONTINUE TO MONITOR THIS SHIFT.
[2016-05-26 06:30] VITALS: BP 130/67
--- NOTE | 2016-05-26 09:14 | PN- Housestaff ---
CHARLENE ZIMMERMAN,HEIDI 05/26/16 0914: Subjective Follow-up For: COPD exacerbation secondary to pneumonia Subjective: Patient has been stable overnight. Still complains of some headache with partial response to ibuprofen. Has been able to walk around. Currently on 3 L oxygen through nasal cannula which is her baseline. No overnight events noted. Denies chest pain, palpitations, dizziness. Review of Systems Constitutional: Reports: see HPI. Objective Last 24 Hrs of Vital Signs/I&O Vital Signs Date Time Temp Pulse Resp B/P Pulse O2 O2 Flow FiO2 Ox Delivery Rate 05/26 0958 72 124/64 05/26 0958 72 124/64 05/26 0800 94 Nasal 2.0L Cannula 05/26 0759 94 Nasal 2.0L Cannula 05/26 0630 97.9 74 20 130/67 91 Nasal Cannula 05/26 0145 96 Nasal 2.0L Cannula 05/26 0000 91 Nasal 1.0L Cannula 05/25 2140 97.4 78 20 130/64 91 Nasal Cannula 05/25 1936 95 Nasal 2.0L Cannula 05/25 1600 95 Nasal 2.0L Cannula 05/25 1443 97.7 75 20 130/84 92 Nasal 2.0L Cannula Intake & Output 05/26 1600 05/26 0800 05/26 0000 Intake Total 250 250 Output Total Balance 250 250 Intake, IV 10 10 Intake, Oral 240 240 Physical Exam General Appearance: Alert, Oriented X3, Cooperative, No Acute Distress Skin: No Rashes Cardiovascular: Regular Rate, Normal S1, Normal S2, No Murmurs Lungs: bilateral diffuse wheeze present. No crackles Abdomen: Normal Bowel Sounds, Soft, No Tenderness Neurological: Normal Speech Extremities: No Clubbing, No Cyanosis, No Edema Current Medications: Current Medications Sig/Sharyn Start time Last Medication Dose Route Stop Time Status Admin Acetaminophen 650 MG Q6P PRN 05/22 2115 AC 05/25 PO 0600 Albuterol Sulfate 3 ML TID 05/23 1000 AC 05/26 INH 1322 Amlodipine Besylate 5 MG DAILY 05/23 1000 AC 05/26 PO 0958 Amoxicillin/ 875 MG Q12 05/26 1000 AC 05/26 Clavulanate Potassium PO 0958 Aspirin 81 MG DAILY 05/23 1031 AC 05/26 PO 0958 Azithromycin 500 MG DAILY 05/23 1000 DC 05/25 Dextrose/Water 250 ML IV 1006 Budesonide/ 2 PUF BID 05/22 2200 AC 05/26 Formoterol Fumarate INH 0958 Carvedilol 12.5 MG BID 05/22 2200 AC 05/26 PO 0958 Ceftriaxone Sodium 1,000 MG EVERY 24 HRS 05/23 1145 DC 05/25 IV 1006 Enoxaparin Sodium 40 MG DAILY 05/23 1000 AC SC Escitalopram Oxalate 5 MG DAILY 05/23 1000 AC 05/26 PO 0958 Famotidine 20 MG BID 05/25 2244 AC 05/26 PO 0957 Fluticasone 2 SPRAY DAILY PRN 05/23 1045 AC 05/24 Propionate ANNELISE 1017 Furosemide 40 MG Q48 05/24 1000 AC 05/26 PO 0958 Ibuprofen 400 MG Q8P PRN 05/25 0930 AC 05/25 PO 1824 Ipratropium [place] 2.5 ML TID 05/23 1600 AC 05/26 INH 1322 Lorazepam 0.5 MG BID 05/23 2200 AC 05/26 PO 05/30 2159 0957 Omeprazole 40 MG DAILY AC 05/23 0700 AC 05/26 PO 0602 Prednisone 60 MG DAILY 05/25 1000 AC 05/26 PO 0957 Sodium Chloride 2 SPRAY Q4P PRN 05/23 1030 AC 05/25 ANNELISE 2140 Assessment/Plan Assessment: This is 61 year female with past medical history of COPD the on 2 L home O2 at 1. but was off oxygen for past 2 months, systolic heart failure, hypertension presented to ER with chief complaint of 2 days history of worsening shortness of breath associated with wheezing and dry cough and a fever of 101.3 likely secondary to COPD exacerbation due to community-acquired pneumonia 1. Acute COPD exacerbation in setting of CAP as rpt chest x ray showed some infiltrate. - on day 4 of antibiotic. Change to by mouth antibiotics did continue - change to PO 60mg daily and plan to discharge on a quick prednisone taper - Sputum culture was negative - TRC nebulization - Continue Symbicort 2. History of systolic heart failure status post defibrillator placement - No evidence of decompensated heart failure - Continue home dose Lasix 40 mg every other day - Continue carvedilol 12.5 mg twice a day - Patient sees set up person Dr. Bello and Dr. Stoll 3. Hypertension Continue home dose carvedilol and amlodipine 4. Depression Continue home dose Lexapro 5 mg daily 5. DVT prophylaxis Subcutaneous Lovenox 6. Full code Problem List: 1. Community acquired bacterial pneumonia 2. COPD with exacerbation Pain Ratin Pain Location: Headache Pain Goal: Remain pain free Pain Plan: Ibuprofen Tomorrow's Labs & Rationales: Patient to be discharged today JOAN FISHER MD 05/26/16 1151: Attending MD Review Statement Attending Statement Attending MD Statement: examined this patient, discuss w/resident/PA/IMPLEMENTATION DIRECTOR, agreed w/resident/PA/IMPLEMENTATION DIRECTOR, reviewed EMR data (avail), discussed with nursing, discussed with case mgmt, amended to note Attending Assessment/Plan: Patient seen and examined, overall doing much better. Breathing and wheezing has improved significantly. Vital signs are stable. Patient will be switched to oral steroids as well as oral antibiotics. She will be on a prednisone taper. She is medically stable for discharge today. She'll follow with Dr. Giraldo as well as Dr. Kincaid as an outpatient. Patient be discharged home today.
[2016-05-26 09:58] VITALS: BP 124/64
--- NOTE | 2016-05-26 10:42 | PN- Pulmonary ---
Subjective HPI/Critical Care Issues: Patient seen and examined. No chest pain, respiratory status improved. The headache has been resolving. No nausea, vomiting, diarrhea or constipation. Afebrile and hemodynamically stable. Objective Current Medications: Current Medications Sig/Sharyn Start time Last Medication Dose Route Stop Time Status Admin Acetaminophen 650 MG Q6P PRN 05/22 2115 AC 05/25 PO 0600 Albuterol Sulfate 3 ML TID 05/23 1000 AC 05/26 INH 0759 Amlodipine Besylate 5 MG DAILY 05/23 1000 AC 05/26 PO 0958 Amoxicillin/ 875 MG Q12 05/26 1000 AC 05/26 Clavulanate Potassium PO 0958 Aspirin 81 MG DAILY 05/23 1031 AC 05/26 PO 0958 Azithromycin 500 MG DAILY 05/23 1000 DC 05/25 Dextrose/Water 250 ML IV 1006 Budesonide/ 2 PUF BID 05/22 2200 AC 05/26 Formoterol Fumarate INH 0958 Carvedilol 12.5 MG BID 05/22 2200 AC 05/26 PO 0958 Ceftriaxone Sodium 1,000 MG EVERY 24 HRS 05/23 1145 DC 05/25 IV 1006 Enoxaparin Sodium 40 MG DAILY 05/23 1000 AC SC Escitalopram Oxalate 5 MG DAILY 05/23 1000 AC 05/26 PO 0958 Famotidine 20 MG BID 05/25 2244 AC 05/26 PO 0957 Fluticasone 2 SPRAY DAILY PRN 05/23 1045 AC 05/24 Propionate ANNELISE 1017 Furosemide 40 MG Q48 05/24 1000 AC 05/26 PO 0958 Ibuprofen 400 MG Q8P PRN 05/25 0930 AC 05/25 PO 1824 Ipratropium [place] 2.5 ML TID 05/23 1600 AC 05/26 INH 0759 Lorazepam 0.5 MG BID 05/23 2200 AC 05/26 PO 05/30 2159 0957 Omeprazole 40 MG DAILY AC 05/23 0700 AC 05/26 PO 0602 Patient Medication 1 ED .STK-MED ONE 05/25 1335 DC Teaching ED 05/25 1336 Prednisone 60 MG DAILY 05/25 1000 AC 05/26 PO 0957 Sodium Chloride 2 SPRAY Q4P PRN 05/23 1030 AC 05/25 ANNELISE 2140 Vital Signs & I&O Last 24 Hrs of Vitals and I&O: Vital Signs Date Time Temp Pulse Resp B/P Pulse O2 O2 Flow FiO2 Ox Delivery Rate 05/26 0958 72 124/64 05/26 0958 72 124/64 05/26 0800 94 Nasal 2.0L Cannula 05/26 0759 94 Nasal 2.0L Cannula 05/26 0630 97.9 74 20 130/67 91 Nasal Cannula 05/26 0145 96 Nasal 2.0L Cannula 05/26 0000 91 Nasal 1.0L Cannula 05/25 2140 97.4 78 20 130/64 91 Nasal Cannula 05/25 1936 95 Nasal 2.0L Cannula 05/25 1600 95 Nasal 2.0L Cannula 05/25 1443 97.7 75 20 130/84 92 Nasal 2.0L Cannula Intake & Output 05/26 1600 05/26 0800 05/26 0000 Intake Total 250 250 Output Total Balance 250 250 Intake, IV 10 10 Intake, Oral 240 240 Exam Other Physical Findings: gen awake and alert heent ncat cvs s1, s2 lungs wheezing b/l abd soft bs+ ext without edema Impression/Plan Impression/Plan Impression/Plan: Impression 61 year old woman Exacerbation of COPD likely secondary to URI or sinusitis Leukocytosis could be steroid induced/reactive, however will monitor Plan -TRC nebs -prednisone taper -headache control -Zithromax -DVT prophylaxis at all times DC planning
[2016-05-26] MEDS ORDERED: ATIVAN0.5 M1 PO (12:12)
--- NOTE | 2016-05-26 15:51 | Discharge Summary ---
Visit Information Visit Dates Admission Date: 05/22/16 Discharge Date: 05/26/16 Hospital Course Course Attending Physician: JOAN FISHER MD Primary Care Physician: CHARLENE ZIMMERMAN,[facility] Course: Patient is a 61 YO F with PMH significant for CHF (systolic s/p ICD), COPD/ asthma (on home oxygen 2L), HTN, depression came to [facility] [facility] with progressively worsening shortness of breath, fever (Tmax 101.3), cough for the past 2 days Vitals on admission: BP 111/70, RR 2o, WI 84, Temp 97.1 O 2 95% on 2 L NC Labs on admission: WBC 13.1, H&H 13.4, 40.0, platelets 258, normal BEP, troponins less than 0.01 Chest x-ray portable on admission showed hyperexpanded lungs. Hospital course 1. Acute hypoxic respiratory failure secondary to COPD exacerbation/community- acquired pneumonia: Patient initially admitted to general medical floor. She was started on IV Solu-Medrol and TRC nebulizes. Repeat x-ray PA lateral showed opacities in medial lung base. Was started on Ceftriaxone and azithromycin for community-acquired pneumonia. Pulmonary consult was obtained. who agreed with the above management. She was continued on IV Solu-Medrol and later tapered to by mouth prednisone. Even though patient had increased white count which was admitted to steroids she remained afebrile. 2. History of systolic heart failure status post ICD: Patient remained stable. She was continued on her home dose of Lasix and other cardiac medications including carvedilol. 3. Hypertension: Blood pressure stable with carvedilol and amlodipine. 4. Depression/anxiety: She was continued on Lexapro 5 mg daily. She was given prescription for Ativan 0.5 mg tablet #10. She will follow-up with her primary care physician for further refill on her medications. DVT prophylaxis with subcutaneous Lovenox Allergies: Coded Allergies: lisinopril (Mild, COUGH, DIARRHE, DIZZINESS 05/22/16) montelukast (HEART PALPITATIONS 05/22/16) Disposition Summary Disposition Principal Diagnosis: 1. Acute hypoxic respiratory failure due to COPD exacerbation in setting of CAP Additional Diagnosis: History of systolic heart failure status post defibrillator placement Hypertension Depression/Anxiety Discharge Disposition: home or self care Discharge Instructions General Discharge Information Code Status: Full Code Patient's Diet: Heart healthy diet Patient's Activity: As tolerated Follow-Up Instructions/Appts: 1. Follow up with PCP in a week upon discharge 2. Follow up with Pulmonary in 2 weeks. Pls call his office and reschedule the appointment sooner Medications at Discharge Discharge Medications: Continue taking these medications: Amlodipine Besylate (Norvasc) 5 MG TABLET 1 Tablet ORAL DAILY Comments: Last Taken: 05/26/16 Time: 1000 Ranitidine HCl (Acid Bushel Worker) 150 MG TABLET 1 Tablet ORAL TWICE DAILY Comments: NOT GIVEN Albuterol Sulfate (Proventil Hfa) 90 MCG HFA.AER.AD 2 PUFF Inhale through mouth Every 4 hours as needed for RESPIRATORY Qty = 7 Comments: Last Taken: 11/09/13 Time:2118 Escitalopram Oxalate (Escitalopram Oxalate) 5 MG TABLET 1 Tablet ORAL DAILY Qty = 30 Comments: Last Taken:11/10/13 Time:0825 Budesonide/Formoterol Fumara (Symbicort 160-4.5 Mcg Inhaler) 160 MCG/4.5 MCG PUF 2 Puff Inhale through mouth TWICE DAILY Days = 30 Ipratropium/Albuterol Sulfate (Combivent Respimat Inhal [place]) 20 MCG-100 MCG/ ACTUATION MIST.INHAL 1 ORAL 4 TIMES A DAY Comments: Last Taken: 05/26/16 Time: 8 AM Carvedilol (Carvedilol) 12.5 MG TABLET 1 Tablet ORAL TWICE DAILY Qty = 60 Comments: Last Taken: 05/26/16 Time: 1000 Furosemide (Furosemide) 40 MG TABLET 1 Tablet ORAL Every other day Qty = 90 Comments: Last Taken: 05/26/16 Time: 1000 Ibuprofen (Ibuprofen) 800 MG TABLET 1 Tablet ORAL TWICE DAILY as needed for PAIN Comments: Last Taken: 05/25/16 Time: 6PM Lorazepam (Lorazepam) 0.5 MG TABLET 1 Tablet ORAL DAILY Qty = 30 Comments: Last Taken: 05/26/16 Time: 1000 Mometasone Furoate (Nasonex) 50 MCG SPRAY.PUMP 2 [place] Both sides of nose DAILY Comments: Last Taken: 05/25/16 Time: 1000 Start taking the following new medications: Amoxicillin/Clavulanate Potass (Amox-Clav 875-125 MG Tablet) 875 MG-125 MG TABLET 1 Tablet ORAL EVERY 12 HOURS Days = 4 No Refills Comments: Last Taken: 05/26/16 Time: 1000 Prednisone (Prednisone) 10 MG TABLET 0 ORAL DAILY Days = 11 No Refills Instructions: TAKE 6 TABS ON 05/26/16 TAKE 5 TABS ON 05/27 AND 05/28 TAKE 4 TABS ON 05/29 AND 05/30 TAKE 3 TABS ON 05/31 AND 06/01 TAKE 2 TABS ON 06/02 AND 06/03 TAKE 1 TABS ON 06/04 AND 06/05 AND THEN STOP Comments: Last Taken: 05/26/16 Time: 1000 Lorazepam (Ativan) 0.5 MG TABLET 1 Tablet ORAL 2 x Daily as needed as needed for anxiety Qty = 10 No Refills Comments: Last Taken: 05/26/16 Time: 1000 Copies To: CHARLENE ZIMMERMAN,CASE
== END 2016-05-26 14:33 | DRG 140 ==
LOC: ENRESERVTM → ENRESERVDT → ERH 11:57 → ENPENDDIS 18:57 → ERHI 18:57 → 2NA 18:57
PROVIDERS: Internal Medicine; Student in an Organized Health Care Education/Training Program; ADMIT Internal Medicine
DX: J44.0 Chronic obstructive pulmonary disease with (acute) lower respiratory infection (principal); J18.9 Pneumonia, unspecified organism; J44.1 Chronic obstructive pulmonary disease with (acute) exacerbation; Z99.81 Dependence on supplemental oxygen; J96.11 Chronic respiratory failure with hypoxia; I50.22 Chronic systolic (congestive) heart failure; F32.9 Major depressive disorder, single episode, unspecified
CPT/HCPCS: 2NASP; 36415; 82436; 87070; 87804; 87804-59; 93005; 93010; 96374; 96375; J0456; J0696; J1650; J2920; J2930; J3490; J7060

== ENCOUNTER 2016-09-14 19:01 | Emergency (ER) | payer OTHER ==
[~2016-09-14] VITALS: Ht 157.5 cm; Wt 81.6 kg
[~2016-09-14 19:01] MED LIST changes: +AMOX-CLAV 875-1 EACH PO; +ATIVAN0.5 M1 PO; +CARVEDILOL12.5 M1 PO; +COMBIVENT RESPIM4 GM PO; +FUROSEMIDE40 M1 PO; +IBUPROFEN800 M1 PO; +LORAZEPAM0.5 M1 PO; +NASONEX17 GM NASB; +PREDNISONE10 M2 PO
--- NOTE | 2016-09-14 21:48 | ED DYSPNEA/ASTHMA COMPLAINT ---
History of Present Illness General Chief Complaint: Dyspnea (COPD, CHF, Other) Stated Complaint: DIFF BREATHING Source: patient, family, old records Exam Limitations: no limitations Vital Signs & Intake/Output Vital Signs & Intake/Output Vital Signs Date Time Temp Pulse Resp B/P B/P Pulse O2 O2 Flow FiO2 Mean Ox Delivery Rate 09/15 0209 97.0 72 18 125/65 94 Room Air 2.0L 09/15 0107 93 Nasal 2.0L Cannula 09/14 2351 98 9L 09/14 2344 76 20 143/85 99 09/14 2339 94 Nasal 2.5L Cannula 09/14 1910 96.9 85 16 130/75 93 Room Air ED Intake and Output 09/15 0000 09/14 1200 Intake Total 0 Output Total Balance 0 Intake, Oral 0 Patient 180 lb Weight Weight Reported by Patient Measurement Method Allergies Coded Allergies: lisinopril (Mild, COUGH, DIARRHE, DIZZINESS 05/22/16) montelukast (HEART PALPITATIONS 05/22/16) Reconcile Medications Albuterol Sulfate (Proventil Hfa) 90 MCG HFA.AER.AD 2 PUFF INH Q4 PRN RESPIRATORY (Reported) Amlodipine Besylate (Norvasc) 5 MG TABLET 1 TAB PO DAILY HEART (Reported) Amoxicillin/Clavulanate [place] (Amox-Clav 875-125 MG Tablet) 875 MG-125 MG TABLET 1 TAB PO Q12 PNA Azithromycin (Zithromax) 250 MG TABLET 1 DP PO AD bronchitis 2 the first day followed by 1 for days 2-5 Budesonide/Formoterol Fumara (Symbicort 160-4.5 Mcg Inhaler) 160 MCG/4.5 MCG PUF 2 PUF INH BID LUNGS Carvedilol 12.5 MG TABLET 1 TAB PO BID HEART (Reported) Escitalopram Oxalate 5 MG TABLET 1 TAB PO DAILY ANXIETY (Reported) Furosemide 40 MG TABLET 1 TAB PO EOD WATER PILL (Reported) Ibuprofen 800 MG TABLET 1 TAB PO BID PRN PAIN (Reported) Ipratropium/Albuterol Sulfate (Combivent Respimat Inhal [place]) 20 MCG-100 MCG/ ACTUATION MIST.INHAL 1 PO 4 TIMES/DAY BREATHING (Reported) Lorazepam 0.5 MG TABLET 1 TAB PO DAILY ANXIETY (Reported) Lorazepam (Ativan) 0.5 MG TABLET 1 TAB PO BIDP PRN anxiety Mometasone Furoate (Nasonex) 50 MCG SPRAY.PUMP 2 SPRAY [place] DAILY ASTHMA ( Reported) Prednisone 20 MG TABLET 1 TAB PO BID asthma Prednisone 10 MG TABLET 0 PO DAILY COPD TAKE 6 TABS ON 05/26/16 TAKE 5 TABS ON 05/27 AND 05/28 TAKE 4 TABS ON 05/29 AND 05/30 TAKE 3 TABS ON 05/31 AND 2/2 TAKE 2 TABS ON 06/02 AND 2/4 TAKE 1 TABS ON 06/04 AND 06/05 AND THEN STOP Ranitidine HCl (Acid Circuit Breaker Supervisor) 150 MG TABLET 1 TAB PO BID GI (Reported) Triage Note: PT C/O SOB WITH HER 02 2L VIA NC. PT STATES THIS HAS BEEN GOING ON FOR THE PAST 2 DAYS. PT STATES SHE HAS BEEN COUGHING BUT UNABLE TO SEE COLOR OF SPUTUM. 02 SAT 92% Triage Nurses Notes Reviewed? yes Onset: 2 days Duration: day(s):, constant, continues in ED, getting worse Timing: recent history Severity: severe Activities at Onset: activity Prior Episodes/Possible Cause: frequent episodes Modifying Factors: Improves With: rest. Worsens With: movement. Associated Symptoms: cough, wheezing, weakness LMP (ages 10-50): post menopausal : No Patient currently breastfeeds: No HPI: 3 days prior to admission patient complains of productive cough of green sputum and increased wheezing dyspnea on exertion chest tightness and weakness with chills. She denies fever nausea vomiting diarrhea abdominal pain headache dysuria rash bleeding. Past History Travel History Traveled to [place] past 21 day No Medical History Any Pertinent Medical History? see below for history EENT: NONE Cardiovascular: CHF, hypertension, hyperlipidemia, DEFIBULATOR LCW Respiratory: asthma, COPD Gastrointestinal: NONE Hepatic: NONE Renal: NONE Musculoskeletal: NONE Psychiatric: NONE Endocrine: NONE Blood Disorders: NONE Cancer(s): NONE LICENSED CLUB MANAGER/Reproductive: NONE History of MRSA: No History of VRE: No History of CDIFF: No Influenza Vaccine: 02/29/16 Surgical History Surgical History: appendectomy, cholecystectomy Psychosocial History Who do you live with Family Services at Home None What is your primary language Lithuanian Tobacco Use: Quit >30 days ago ETOH Use: occasional use Illicit Drug Use: denies illicit drug use Family History Family History, If Any: MOTHER, . BROTHER grandmother MOTHER DAUGHTER Relation not specified for: FH: diabetes mellitus FHx: asthma FHx: premature coronary heart disease Hx Contributory? No Review of Systems Review of Systems Constitutional: Reports: see HPI, chills. EENTM: Reports: no symptoms. Respiratory: Reports: see HPI, cough, short of breath, wheezing. Cardiovascular: Reports: see HPI, chest pain. GI: Reports: no symptoms. Genitourinary: Reports: no symptoms. Musculoskeletal: Reports: no symptoms. Skin: Reports: no symptoms. Neurological/Psychological: Reports: no symptoms. Hematologic/Endocrine: Reports: no symptoms. Immunologic/Allergic: Reports: no symptoms. All Other Systems: Reviewed and Negative Physical Exam Physical Exam General Appearance: well developed/nourished, alert, awake, anxious, moderate distress, obese Head: atraumatic, normal appearance Eyes: Bilateral: normal appearance, PERRL, EOMI. Ears, Nose, Throat: normal pharynx, normal ENT inspection, moist mucus membranes Neck: normal inspection, supple, full range of motion, no midline tenderness Respiratory: chest non-tender, decreased breath sounds, wheezing, respiratory distress Cardiovascular: regular rate/rhythm, normal peripheral pulses, norml femoral pulses equa Peripheral Pulses: 4+ carotid (R), 4+ carotid (L) Gastrointestinal: normal bowel sounds, soft, non-tender, no organomegaly Extremities: normal inspection, normal capillary refill, normal range of motion, no edema, no ligament instability Neurologic/Psych: no motor/sensory deficits, awake, alert, oriented x 3, normal mood/affect, fur comber II-XII nml as tested Skin: intact, normal color, warm/dry Lymphatic: no anterior cervical latasha Core Measures ACS in differential dx? No Severe Sepsis Present: No Septic Shock Present: No Progress Differential Diagnosis: asthma, bronchitis, COPD, pneumonia Plan of Care: Orders Procedure Date/time Status ARTERIAL BLOOD GAS (GEN) 09/15 2143 Complete TROPONIN LEVEL 09/15 2143 Complete MAGNESIUM 09/15 2143 Complete COMPREHENSIVE METABOLIC PANEL 09/15 2143 Complete CBC WITHOUT DIFFERENTIAL 09/15 2143 Complete B-TYPE NATRIURETIC PEP (BNP) 09/15 2143 Complete EKG 09/15 2143 Active Laboratory Tests 09/14/160: pH 7.43, pCO2 31 L, pO2 73 L, HCO3 20 L, ABG O2 Sat (Measured) 95.0 L, P-50 (Temp Corrected) N, Carboxyhemoglobin 0.2 L, O2 Concentration % 2.5L, O2 Delivery Method N/C, Phlebotomy Draw Site RIGHT RADIAL 09/14/16 2205: Anion Gap 13, Estimated GFR > 60, BUN/Creatinine Ratio 20.0, Glucose 96, Calcium 8.8, Magnesium 1.9, Total Bilirubin 0.7, AST 24, ALT 40, Alkaline Phosphatase 89 , Troponin I < 0.01, [id number] Pept 280 H, Total Protein 7.2, Albumin 4.3, Globulin 2.9, Albumin/Globulin Ratio 1.5, CBC w Diff NO MAN DIFF REQ, RBC 4.59, MCV 87.3, MCH 28.9, RDW 14.3, MPV 7.7, Gran % 60.3, Lymphocytes % 25.3, Monocytes % 13.1 H, Eosinophils % 0.6, Basophils % 0.7, Absolute Granulocytes 4.0, Absolute Lymphocytes 1.7, Absolute Monocytes 0.9 H, Absolute Eosinophils 0 , Absolute Basophils 0, PUBS MCHC 33.1 Diagnostic Imaging: Viewed by Me: Radiology Read. Discussed w/RAD: Radiology Read. CXR Impression: no acute abnormality Initial ED EKG: normal axis, normal intervals, normal p-waves, normal QRS complex, normal sinus rhythm, no ST T wave changes Prior EKG: unchanged Rhythm Strip: normal sinus rhythm Departure Departure Time of Disposition: 216 Disposition: HOME OR SELF CARE Condition: Stable Clinical Impression Primary Impression: Asthma exacerbation Secondary Impressions: Bronchitis Referrals: CASE CHANG MD (PCP/Family) Departure Forms: Customer Survey General Discharge Information Prescriptions: Current Visit Scripts Azithromycin (Zithromax) 1 DP PO AD #6 TAB 2 the first day followed by 1 for days 2-5 Prednisone 1 TAB PO BID #10 TAB Critical Care Note Critical Care Note Critical Care Time: 30-74 min (40)
[2016-09-14 22:12] LABS: ABSOLUTE BASOPHIL COUNT 0 /CUMM (0.0-0.2); ABSOLUTE EOSINOPHIL COUNT 0 /CUMM (0.0-0.7); ABSOLUTE LYMPH COUNT 1.7 /CUMM (1.2-3.4); ABSOLUTE MONOCYTE COUNT 0.9 /CUMM (0.10-0.60); BASOPHIL % 0.7 % (0.0-2.0); EOSINOPHIL % 0.6 % (0-5); GRANULOCYTE % 60.3 % (42.2-75.2); HEMATOCRIT 40.1 % (37-47); MEAN CORPUSCULAR HGB 28.9 PG (27.0-31.0); MEAN CORPUSCULAR HGB CONC 33.1 G/DL (33.0-37.0); MEAN CORPUSCULAR VOLUME 87.3 FL (81.0-99.0); MEAN PLATELET VOLUME 7.7 FL (7.4-10.4); PLATELET COUNT 266 /CUMM (130-400); RBC DISTRIBUTION WIDTH 14.3 % (11.5-14.5); RED BLOOD CELL CT 4.59 /CUMM (4.20-5.40); WHITE BLOOD CELL COUNT 6.6 /CUMM (4.8-10.8)
--- NOTE | 2016-09-14 22:25 | RADIOLOGY REPORT ---
EXAMINATION: XR PORTABLE CHEST CLINICAL INFORMATION: Shortness of breath and fever. COMPARISON: 05/23/2016 TECHNIQUE: Portable frontal view of the chest was obtained. FINDINGS: Left chest wall single-lead AICD/pacer with lead overlying the right ventricle. The lungs are well expanded. No consolidation, edema, or effusion. No pneumothorax. The cardiomediastinal silhouette is within normal limits. No acute osseous abnormality. IMPRESSION: No acute pulmonary findings.
[2016-09-15 02:09] VITALS: BP 125/65
[2016-09-15] MEDS ORDERED: PREDNISONE20 M1 PO (02:18)
[2016-09-15] MEDS ORDERED: ZITHROMAX250 M2 PO (02:18)
== END 2016-09-15 03:20 ==
LOC: ERH 19:01
PROVIDERS: Emergency Medicine
DX: J45.901 Unspecified asthma with (acute) exacerbation (principal); Z87.891 Personal history of nicotine dependence
CPT/HCPCS: 1263; 1395; 93005; 93010; 96374; 96375; 99291; J0696; J1885; J2930

== ENCOUNTER 2017-07-23 14:03 | Inpatient (IN) | payer OTHER ==
[~2017-07-23] VITALS: Ht 157.5 cm; Wt 92.2 kg
[~2017-07-23 14:03] MED LIST changes: +PREDNISONE20 M1 PO; +ZITHROMAX250 M2 PO
--- NOTE | 2017-07-23 16:51 | ED INFLUENZA/URI COMPLAINT ---
History of Present Illness General Chief Complaint: Upper Respiratory Sx/Fever Stated Complaint: URI Source: patient Exam Limitations: no limitations Vital Signs & Intake/Output Vital Signs & Intake/Output Vital Signs Date Time Temp Pulse Resp B/P B/P Pulse O2 O2 Flow FiO2 Mean Ox Delivery Rate 07/23 Nasal 2.0L Cannula 07/23 1924 67 20 157/75 96 Nasal 2.0L Cannula 07/23 175 96 Nasal 2.0L Cannula 07/23 174 96.9 72 20 131/88 97 Nasal 2.0L Cannula 07/23 1743 97 Nasal 2.0L Cannula 07/23 1425 97.9 75 20 162/92 98 Nasal 2.0L Cannula Allergies Coded Allergies: lisinopril (Mild, COUGH, DIARRHE, DIZZINESS 05/22/16) montelukast (HEART PALPITATIONS 05/22/16) Reconcile Medications Albuterol Sulfate (Proventil Hfa) 90 MCG HFA.AER.AD 2 PUFF INH Q4 PRN RESPIRATORY (Reported) Amlodipine Besylate (Norvasc) 5 MG TABLET 1 TAB PO DAILY HEART (Reported) Amoxicillin/Clavulanate Potass (Amox-Clav 875-125 MG Tablet) 875 MG-125 MG TABLET 1 TAB PO Q12 PNA Azithromycin (Zithromax) 250 MG TABLET 1 DP PO AD bronchitis 2 the first day followed by 1 for days 2-5 Budesonide/Formoterol Fumara (Symbicort 160-4.5 Mcg Inhaler) 160 MCG/4.5 MCG PUF 2 PUF INH BID LUNGS Carvedilol 12.5 MG TABLET 1 TAB PO BID HEART (Reported) Escitalopram Oxalate 5 MG TABLET 1 TAB PO DAILY ANXIETY (Reported) Furosemide 40 MG TABLET 1 TAB PO EOD WATER PILL (Reported) Ibuprofen 800 MG TABLET 1 TAB PO BID PRN PAIN (Reported) Ipratropium/Albuterol Sulfate (Combivent Respimat Inhal [place]) 20 MCG-100 MCG/ ACTUATION MIST.INHAL 1 PO 4 TIMES/DAY BREATHING (Reported) Lorazepam 0.5 MG TABLET 1 TAB PO DAILY ANXIETY (Reported) Lorazepam (Ativan) 0.5 MG TABLET 1 TAB PO BIDP PRN anxiety Mometasone Furoate (Nasonex) 50 MCG SPRAY.PUMP 2 SPRAY NASB DAILY ASTHMA ( Reported) Prednisone 20 MG TABLET 1 TAB PO BID asthma Prednisone 10 MG TABLET 0 PO DAILY COPD TAKE 6 TABS ON 05/26/16 TAKE 5 TABS ON 05/27 AND 05/28 TAKE 4 TABS ON 05/29 AND 05/30 TAKE 3 TABS ON 05/31 AND 06/01 TAKE 2 TABS ON 06/02 AND 2/ TAKE 1 TABS ON 06/04 AND 06/05 AND THEN STOP Ranitidine HCl (Acid Circular Knitter Helper) 150 MG TABLET 1 TAB PO BID GI (Reported) Triage Note: PT C/O URI, STATES SHE IS CONGESTED, WHEEZING. STATES SHE CAN'T TAKE A DEEP BREATH. PT STATES HX OF PNEUMONIA AND SHE THINKS SHE HAS IT AGAIN. PT ON 2LNC AT BASELINE Triage Nurses Notes Reviewed? yes Onset: Gradual Duration: getting worse Severity: severe Severity Numbers: 7 HPI: Patient is a 62-year-old female with a past history of CHF (systolic s/p ICD), COPD/asthma (on home oxygen 2L), HTN, depression who presents emergency room stating that approximately 2 weeks ago she had concerns of COPD exacerbation and bronchitis were Dr. Giraldo her hose finisher prescribed her azithromycin and steroids with symptoms have improved however the past 2-3 days symptoms of cough and shortness of breath and wheezing exacerbated and is unrelieved with home nebulizer treatments and inhaler treatments, patient denies any arm pain jaw pain fever chills hemoptysis leg swelling (Fred Bess) Past History Travel History Traveled to [place] past 21 day No Medical History Any Pertinent Medical History? see below for history EENT: NONE Cardiovascular: CHF, hypertension, hyperlipidemia, DEFIBULATOR LCW Respiratory: asthma, COPD Gastrointestinal: NONE Hepatic: NONE Renal: NONE Musculoskeletal: NONE Psychiatric: NONE Endocrine: NONE Blood Disorders: NONE Cancer(s): NONE MIRROR POLISHER/Reproductive: NONE History of MRSA: No History of VRE: No History of CDIFF: No Surgical History Surgical History: appendectomy, cholecystectomy Psychosocial History Who do you live with Family Services at Home None What is your primary language Sinhala Tobacco Use: Quit >30 days ago ETOH Use: occasional use Illicit Drug Use: denies illicit drug use Family History Family History, If Any: MOTHER, . BROTHER grandmother MOTHER DAUGHTER Relation not specified for: FH: diabetes mellitus FHx: asthma FHx: premature coronary heart disease Hx Contributory? No (Fred Bess) Review of Systems Review of Systems Constitutional: Reports: no symptoms. EENTM: Reports: no symptoms. Respiratory: Reports: see HPI. Cardiovascular: Reports: see HPI. GI: Reports: no symptoms. Genitourinary: Reports: no symptoms. Musculoskeletal: Reports: no symptoms. Skin: Reports: no symptoms. Neurological/Psychological: Reports: no symptoms. Hematologic/Endocrine: Reports: no symptoms. Immunologic/Allergic: Reports: no symptoms. All Other Systems: Reviewed and Negative (Fred Bess) Physical Exam Physical Exam General Appearance: no apparent distress, alert, comfortable, obese Head: atraumatic Eyes: Bilateral: normal appearance. Ears, Nose, Throat: normal ENT inspection, moist mucous membrane, hearing grossly normal Neck: normal inspection Respiratory: no respiratory distress, wheezing Cardiovascular: regular rate/rhythm Peripheral Pulses: 2+ radial (R) Gastrointestinal: normal bowel sounds, soft, no organomegaly Extremities: normal inspection, normal capillary refill Skin: intact, normal color Core Measures Sepsis Present: No Sepsis Focused Exam Completed? No (Fred Bess) Progress Differential Diagnosis: influenza, meningitis, neutropenia, otitis, pneumonia, pharyngitis, sinusitis Plan of Care: Orders Procedure Date/time Status Heart Healthy Diet 07/24 B Active LACTIC ACID 07/24 2043 Active Patient Data 07/23 2020 Active ED Holding Orders 07/23 2012 Active Admit to inpatient 07/23 2012 Active Vital Signs 07/23 2012 Active Code Status 07/23 2012 Active Add-on Test (ER Only) 07/23 1948 Active B-TYPE NATRIURETIC PEP (BNP) 07/23 1810 Complete EKG 07/23 1746 Active LOWER RESPIRATORY CULTURE 07/23 1744 Active TROPONIN LEVEL 07/23 1744 Complete LACTIC ACID 07/23 1744 Complete COMPREHENSIVE METABOLIC PANEL 07/23 1744 Complete CBC WITHOUT DIFFERENTIAL 07/23 1744 Complete RAPID VIRAL INFLUENZA A 07/23 1405 Complete Laboratory Tests 07/23/17 1810: Anion Gap 10, Estimated GFR > 60, BUN/Creatinine Ratio 28.6 H, Glucose 102 H, Lactic Acid 1.1, Calcium 9.2, Total Bilirubin 0.7, AST 20, ALT 45, Alkaline Phosphatase 92, Troponin I < 0.01, Gwi-E-Hkhyhozbtmb Pept 195 H, Total Protein 7.0, Albumin 3.8, Globulin 3.2, Albumin/Globulin Ratio 1.2, CBC w Diff NO MAN DIFF REQ, RBC 4.48, MCV 88.8, MCH 28.7, MCHC 32.3 L, RDW 13.9, MPV 8.1, Gran % 56.9, Lymphocytes % 27.6, Monocytes % 12.7 H, Eosinophils % 2.2, Basophils % 0.6, Absolute Granulocytes 4.3, Absolute Lymphocytes 2.1, Absolute Monocytes 1.0 H, Absolute Eosinophils 0.2, Absolute Basophils 0 Microbiology 07/24 1743 LOWER RESP: Respiratory Culture - ORD 07/24 1743 LOWER RESP: Gram Stain - ORD 07/23 1616 NASOPHARYN: Influenza Virus A & B Rapid Smear - COMP Patient upon initial presentation was in no respiratory distress however has concerns of bilateral wheezing patient was given multiple nebulizer treatments with no resolution of wheezing patient has failed outpatient treatment of steroids and nebulizers and azithromycin Patient oxygen saturation upon ambulation with oxygen was 92% however due to failed outpatient treatment of persistent COPD that he will be admitted for COPD exacerbation Diagnostic Imaging: Viewed by Me: Radiology Read. CXR Impression: SEE COMMENTS Initial ED EKG: normal p-waves, normal QRS complex, 71 BPM, MOTION ARTIFACT NOTED. Comments: PATIENT: WILLY DAMON PRESENT AGE: 62 PATIENT ACCOUNT NO: [id number] : 57 LOCATION: [facility] ORDERING PHYSICIAN: Fred MELENDEZ SERVICE DATE: 07/23/17 EXAM TYPE: RAD - XRY-CHEST XRAY, TWO VIEWS EXAMINATION: XR CHEST CLINICAL INFORMATION: Cough and shortness of breath. COMPARISON: Chest radiography 09/14/2016. TECHNIQUE: 2 views of the chest were obtained. FINDINGS: Left pectoral cardiac device demonstrated. The lungs are well expanded. Borderline peribronchial thickening. No new consolidation, pulmonary edema, pleural effusion, or pneumothorax. Mediastinal contours are unchanged. Mild aortic atherosclerotic calcification. No acute osseous abnormalities. IMPRESSION: Borderline peribronchial thickening could reflect mild small airways inflammation. No evidence of pneumonia. DICTATED BY: Kee Ngo MD DATE/TIME DICTATED:07/23/171740 BATCH UNLOADER:JESÚS DATE/TIME TRANSCRIBED:07/23/171740 (Fred Bess) Departure Departure Disposition: HOME OR SELF CARE Condition: Stable Clinical Impression Primary Impression: COPD exacerbation Secondary Impressions: Bronchitis Referrals: Marianne Lopes MD (PCP/Family) Departure Forms: Customer Survey General Discharge Information Admission Note Spoke With: Bella Aguilera MD Documentation of Exam: Documentation of any treatments & extenuating circumstances including Concerns Regarding Discharge (functional status, medication knowledge or non-compliance, living conditions, etc.) that warrant an admission rather than observation: [ Patient requires pulmonary consultation, repeat nebulizers IV steroids] (Luis F MELENDEZ,Fred) PA/HYDRAULIC RIVETER Co-Sign Statement Statement: ED Attending supervision documentation- [X] I saw and evaluated the patient. I have also reviewed all the pertinent lab results and diagnostic results. I agree with the findings and the plan of care as documented in the PA's/HYDRAULIC RIVETER's documentation. [X] I have reviewed the ED Record and agree with the PA's/HYDRAULIC RIVETER's documentation. [] Additions or exceptions (if any) to the PAs/HYDRAULIC RIVETER's note and plan are summarized below: [COPD exacerbation failed outpatient treatment. [facility], respiratory therapy, pulmonary consultation] (Jin ZIMMERMAN,Deangelo Bruce) (Jin ZIMMERMAN,Deangelo Bruce)
--- NOTE | 2017-07-23 17:46 | RADIOLOGY REPORT ---
EXAMINATION: XR CHEST CLINICAL INFORMATION: Cough and shortness of breath. COMPARISON: Chest radiography 09/14/2016. TECHNIQUE: 2 views of the chest were obtained. FINDINGS: Left pectoral cardiac device demonstrated. The lungs are well expanded. Borderline peribronchial thickening. No new consolidation, pulmonary edema, pleural effusion, or pneumothorax. Mediastinal contours are unchanged. Mild aortic atherosclerotic calcification. No acute osseous abnormalities. IMPRESSION: Borderline peribronchial thickening could reflect mild small airways inflammation. No evidence of pneumonia.
[2017-07-23 18:35] LABS: ABSOLUTE BASOPHIL COUNT 0 /CUMM (0.0-0.2); ABSOLUTE EOSINOPHIL COUNT 0.2 /CUMM (0.0-0.7); ABSOLUTE GRANULOCYTE CT 4.3 /CUMM (1.4-6.5); ABSOLUTE LYMPH COUNT 2.1 /CUMM (1.2-3.4); BASOPHIL % 0.6 % (0.0-2.0); EOSINOPHIL % 2.2 % (0-5); GRANULOCYTE % 56.9 % (42.2-75.2); HEMATOCRIT 39.8 % (37-47); MEAN CORPUSCULAR HGB 28.7 PG (27.0-31.0); MEAN CORPUSCULAR HGB CONC 32.3 G/DL (33.0-37.0); MEAN CORPUSCULAR VOLUME 88.8 FL (81.0-99.0); MEAN PLATELET VOLUME 8.1 FL (7.4-10.4); PLATELET COUNT 327 /CUMM (130-400); RBC DISTRIBUTION WIDTH 13.9 % (11.5-14.5); RED BLOOD CELL CT 4.48 /CUMM (4.20-5.40); WHITE BLOOD CELL COUNT 7.6 /CUMM (4.8-10.8)
--- NOTE | 2017-07-23 21:11 | History & Physical ---
[facility] General Information and HPI MD Statement: I have seen and personally examined WILLY DAMON and documented this H&P. The patient is a 62 year old F who presented with a patient stated chief complaint of weakness, nonproductive cough and shortness of breath with wheezing []. Source of Information: patient, family, old records Exam Limitations: no limitations History of Present Illness: 62 YO F ex-snoker (1 pack/d, quit 3 yrs ago) with PMH of HTN, CHF with EF 15-20% S/P ICD, HLD, COPD/asthma on 2L home O2, GERD and anxiety/depression came to ED with chief complaint of worsening weakness, nonproductive cough, shortness of breath with wheezing for last 2 days. Patient reported that she was in her usual state of health 2 weeks back when she had progressively worsening shortness of breath with wheezing. Patient went to see Dr. Giraldo who is her regular business machines teacher. Patient was prescribed azithromycin and tapering steroids for COPD exacerbation, although patient completed the course but she couldn't get better. Patient reported that for last 2 days her shortness of breath and wheezing is worsening. Patient also reported having nonproductive cough and weakness for last 2 days. Patient endorsed that she has stuffiness of the nose with bouts of nonproductive cough. Patient is using nebulization treatment for 5 days every day but she is not getting better. Her shortness of breath is also worsening. Patient also noticed having loose bowel movements without abdominal pain for last 1 week. Her stools are nonbloody and non-foul- smelling. Patient also endorsed having chills and she reported that her son having upper respiratory tract infection for last couple of days. Patient denied any chest pain, palpitation, lightheadedness, loss of consciousness, fever, headache, abdominal pain, trauma, constipation and dysuria. Last time patient was admitted with acute hypoxic respiratory failure with COPD exacerbation in April 2016. Last echocardiogram was done in October 2013 that showing ejection fraction 15-20% with left ventricular mild dilatation and severe global hypokinesia. Patient is seen Dr. Bello for heart problem. ED course: Vitals: Temperature 97.9, pulse 75, respiratory rate 20, blood pressure 162/92, oxygen saturation 98% on 2 L of oxygen Labs: WBC count 7.6, hemoglobin 12.9, hematocrit 39.8, platelet count 327, sodium 142, potassium 4.5, BUN 20, creatinine 0.7, anion gap 10, BUNs/creatinine ratio 28.6, glucose 102, lactic acid 1.1, calcium 9.2, AST 20, ALT 45, alkaline phosphatase 392, troponin less than 0.01, proBNP 195 Sputum cultures were obtained in ED and rapid influenza test is negative Allergies/Medications Allergies: Coded Allergies: lisinopril (Mild, COUGH, DIARRHE, DIZZINESS 05/22/16) montelukast (HEART PALPITATIONS 05/22/16) Home Med list Alprazolam 0.5 MG TABLET 1 TAB PO TIDPRN ANXIETY (Reported) Amlodipine Besylate (Norvasc) 5 MG TABLET 1 TAB PO DAILY HEART (Reported) Budesonide/Formoterol Fumarate (Symbicort 160-4.5 Mcg Inhaler) 160 MCG-4.5 MCG/ ACTUATION HFA.AER.AD 2 PUF INH BID COPD (Reported) Carvedilol 12.5 MG TABLET 1 TAB PO BID HEART (Reported) Escitalopram Oxalate 5 MG TABLET 1 TAB PO DAILY ANXIETY (Reported) Furosemide 40 MG TABLET 1 TAB PO EOD WATER PILL (Reported) Ibuprofen 800 MG TABLET 1 TAB PO BID PRN PAIN (Reported) Ipratropium/Albuterol Sulfate (Iprat-Albut 0.5-3(2.5) MG/3 Ml) 0.5 MG-3 MG (2.5 MG BASE)/3 ML AMPUL.NEB 3 ML INH Q4 HRS NEEDED PRN COPD (Reported) Mometasone Furoate (Nasonex) 50 MCG SPRAY.PUMP 2 SPRAY NASB DAILY ASTHMA ( Reported) Ranitidine (Ranitidine HCl) 150 MG TABLET 1 TAB PO BID ACID REFLUX (Reported) Tiotropium [place] (Spiriva Respimat) 2.5 MCG/ACTUATION MIST.INHAL 2 PUFF INH BID COPD (Reported) Past History Travel History Traveled to [place] past 21 day No Medical History EENT: NONE Cardiovascular: CHF, hypertension, hyperlipidemia, DEFIBULATOR LCW Respiratory: asthma, COPD Gastrointestinal: NONE Hepatic: NONE Renal: NONE Musculoskeletal: NONE Psychiatric: NONE Endocrine: NONE Blood Disorders: NONE Cancer(s): NONE CUSTOMER LIAISON/Reproductive: NONE History of MRSA: No History of VRE: No History of CDIFF: No Surgical History Surgical History: appendectomy, cholecystectomy Past Family/Social History Family History Relations & Conditions if any MOTHER, . BROTHER grandmother MOTHER DAUGHTER Relation not specified for: FH: diabetes mellitus FHx: asthma FHx: premature coronary heart disease Psychosocial History Who Do You Live With? spouse, child Services at Home: None ETOH Use: occasional use Illicit Drug Use: denies illicit drug use Living Will? yes Functional Ability ADLs Independent: dressing, eating, toileting, bathing. Ambulation: independent IADLs Independent: shopping, housework, finances, food prep, telephone, transportation , medication admin. Review of Systems Review of Systems Constitutional: Reports: weakness. EENTM: Reports: no symptoms. Cardiovascular: Reports: no symptoms. Respiratory: Reports: cough, short of breath. GI: Reports: diarrhea. Genitourinary: Reports: no symptoms. Musculoskeletal: Reports: no symptoms. Skin: Reports: no symptoms. Neurological/Psychological: Reports: no symptoms. Hematologic/Endocrine: Reports: no symptoms. Exam & Diagnostic Data Physical Exam General Appearance Alert, Oriented X3, Cooperative Skin No Rashes Skin Temp/Moisture Exam: Warm/Dry Sepsis Skin Exam (color): Normal for Ethnicity HEENT Atraumatic, PERRLA, EOMI Neck Supple Cardiovascular Normal S1, Normal S2 Lungs B/L wheezing and decreased breath sounds Abdomen Soft, No Tenderness Neurological Normal Speech, Strength at 5/5 X4 Ext, Normal Tone, Sensation Intact Extremities No Edema Assessment/Plan Assessment: 62 YO F ex-snoker (1 pack/d, quit 3 yrs ago) with PMH of HTN, CHF with EF 15-20% S/P ICD, HLD, COPD/asthma on 2L home O2, GERD and anxiety/depression came to ED with chief complaint of worsening weakness, nonproductive cough, shortness of breath with wheezing for last 2 days. We will admit the patient on general medicine floor to treat for COPD exacerbation secondary to acute bronchitis. COPD exacerbation secondary to acute bronchitis: -Supplemental oxygen as needed to keep the oxygen saturation more than 92% -TRC nebulization as needed -Chest physiotherapy -Mucinex -We will follow blood and sputum cultures -IV Solu-Medrol 40 mg every 8 hourly -Pulmonology consult History of CHF status post ICD: -Continue home medications History of hypertension and hyperlipidemia: -Continue home medications History of GERD: -Continue omeprazole History of depression and anxiety: -Continue home medications DVT prophylaxis: Mechanical and subcutaneous heparin CODE STATUS: Full code As Ranked By This Provider Problem List: 1. COPD exacerbation Core Measures/Misc (01/14) Acute Coronary Syndrome ACS Diagnosis: No Congestive Heart Failure Congestive Heart Failure Diagnosis No Cerebrovascular Accident CVA/TIA Diagnosis: No VTE (View Protocol) VTE Risk Factors Age>40 No Mechanical VTE Prophylaxis d/t N/A MechProphylax Ordered No VTE Pharm Prophylaxis d/t NA PharmProphylax ordered Sepsis (View protocol) Sepsis Present: No KielDrea 07/24/17 0017: Exam & Diagnostic Data Last 24 Hrs of Vital Signs/I&O Vital Signs Date Time Temp Pulse Resp B/P B/P Pulse O2 O2 Flow FiO2 Mean Ox Delivery Rate 07/24 0600 98.1 80 18 132/73 98 Nasal 2.0L Cannula 07/24 0150 96 Nasal 2.0L Cannula 07/24 0045 98.2 72 20 161/71 97 Nasal 2.0L Cannula 07/23 2331 96.7 76 20 160/81 96 Nasal 2.0L Cannula 07/23 2258 73 152/83 07/23 2237 73 152/83 07/23 2055 97.6 73 20 152/83 98 Nasal 2.0L Cannula 07/23 2000 100 Nasal 2.0L Cannula 07/23 1924 67 20 157/75 96 Nasal 2.0L Cannula 07/23 1752 96 Nasal 2.0L Cannula 07/23 1745 96.9 72 20 131/88 97 Nasal 2.0L Cannula 07/23 1743 97 Nasal 2.0L Cannula 07/23 1425 97.9 75 20 162/92 98 Nasal 2.0L Cannula Intake & Output 07/24 0800 07/24 0000 07/23 1600 Intake Total 240 Output Total 0 Balance 240 Intake, Oral 240 Output, Urine 0 Patient 180 lb Weight Resident Review Statement Resident Statement: examined this patient, discussed with business analytics intern, agreed with business analytics intern Other Findings: Her patient is a 62-year-old female with past medical history significant for hypertension, dyslipidemia, oxygen dependent COPD, anxiety and depression, heart failure with reduced ejection fraction status post ICD placement came in with chief complaint of worsening shortness of breath and wheezing for last 2-3 days. Patient was recently been treated for bronchitis/ COPD exacerbation with azithromycin and tapering course of steroids which she completed a few days ago. After completing medication course she was feeling better for a couple of days but for the last 2-3 days again she was experiencing shortness of breath and wheezing along with nonproductive cough. She is using her nebulizer almost 4-5 times a day. Review of systems was essentially negative except she had diarrhea for last 4-5 days but denied any blood in stool. Vital signs on admission were temperature 97.9, pulse 75, respiratory rate 20, blood pressure 162/92 and she was saturating 98% on 2 L nasal cannula oxygen Labs were significant for WBC count 7.6, hemoglobin 12.9, hematocrit drifted 39.8, platelet count 327, sodium 142, potassium 4.5, BUNs 20, creatinine 0.7, lactic acid was 1.1 initially later on came 3.4. Imaging study was negative for any evidence of pneumonia On examination Patient is alert and oriented 3 Head atraumatic Neck supple no JVD Chest Auscultation is significant for diffuse wheezing and reduced air entry Heart S1-S2 normal no added sounds abdomen soft with no organomegaly Extremities showed no edema No neurological deficit noted Assessment and plan 62-year-old female with history of oxygen dependent COPD, anxiety and depression, congestive heart failure with reduced ejection fraction status post ICD placement, dyslipidemia and hypertension came with worsening shortness of breath and wheezing most likely COPD exacerbation We will admit her into the medical floor and will address following problems Problem list 1. Worsening shortness of breath most likely due to COPD exacerbation 2. History of hypertension and dyslipidemia 3. Chronic hypoxic respiratory failure on 2 L home oxygen 4. History of anxiety and depression 5. history of heart failure with reduced ejection fraction Plan 1. We'll admit her under medical floor 2. We'll monitor her CBCs and basic electrolyte panel. She has elevated lactic acidosis most likely due to dehydration/infection and we will send it 3. We will send respiratory cultures 4. We will give her symptomatic treatment with total respiratory care and nebulization 5. We will start her on Solu-Medrol 40 mg every 8 hours 6. We will request Dr. Giraldo to evaluate her in a.m. 7. She was given 1 L of normal saline in ED and her ejection fraction is 15-20% we will hold off on any further IV hydration 8. Supplemental oxygen to keep oxygen saturation more than 90% 9. We'll continue all her home medications including carvedilol, Lasix and inhalers 10. We will consider chest x-ray PA lateral view in the morning and if any evidence of pneumonia we might consider starting her on antibiotics but we will hold off and watch her off of antibiotics for now. Of note she is recently completed a course of azithromycin . Patient is full code Pharmacological DVT prophylaxis Heart healthy diet Bella Aguilera 07/24/17 0307: Attending MD Review Statement Attending Statement Attending MD Statement: examined this patient, discuss w/resident/PA/VENEER STACKER, agreed w/resident/PA/VENEER STACKER, reviewed EMR data (avail), reviewed images, amended to note Attending Assessment/Plan: CC: Persistent shortness of breath, cough and wheezing PMH: COPD/asthma on 2 L nasal cannula, prediabetes, HFrEF, ICD, HTN, HLD, depression Patient started to notice URI symptoms, congestion and nose and chest and wheezing approximately 2 weeks back. She was getting nonproductive cough. She followed up outpatient with business machines teacher on July 06 and was treated with prednisone taper and azithromycin. After completion of the treatment for 5-6 days patient felt better for 2 days and then her symptoms worsened again. She was very weak and lethargic, persistent nonproductive cough, chest compression and more and more wheezing. At baseline he shouldn't can sometimes be without home oxygen for short durations but once she gets worsening of breathing and cough, she cannot be without oxygen at home. At that time she understands that her COPD may be worse and this is what happened this time as well. Patient was using oxygen continuously, nebulization treatment and inhalations without much relief. Patient also states that she changed her nebulization message machine approximately 5-6 months back, which doesn't work equally effective as compared to her previous machine. Her son was sick with either infection during the same time. Patient endorses "cold sweats", feeling very warm and then breaking out in sweats but did not actually check her temperature at home. Since last 3-4 days she is having 3-4 watery bowel movements every day, had one episode of incontinence this morning because of excessive cough. Patient denies any chest pain, chest tightness, palpitations, dizziness, nausea, vomiting, urinary symptoms. Vitals: Afebrile, pulse in 70s, RR 20, blood pressure 162/92, saturating 98% on 2 L nasal cannula. On exam: A O 3, cooperative, obese, no acute distress, neck supple, JVD normal, no lymphadenopathy, mucosa moist, no focal neurological deficit, no dependent edema, no obvious skin rashes or inflammation CVS: S1-S2, RRR. RS: Prolonged expiration with scattered wheezing and markedly decreased air entry bilaterally, no obvious crackles or rales. Abdomen: Soft, NT, ND, bowel sounds present. CXR: Borderline peribronchial thickening could reflect mild small airways inflammation. No evidence of pneumonia. Assessment and plan 62-year-old female with multiple comorbidities presented in ER for worsening of shortness of breath, wheezing, chest congestion, URI symptoms and nonproductive cough initially started 2 weeks back, improved mildly with 5 day course of antibiotics and tapering prednisone but worsened again since last 1 week. She endorses lethargy, weakness, continuous oxygen use, feeling hot and having cold sweats, diarrhea but denies any chest pain, chest tightness, nausea, vomiting. On auscultation she has prolonged expiration with diffuse wheezing, markedly decreased air entry bilaterally with bronchospasm. Influenza negative. chest x- ray negative for pneumonia, I personally reviewed it. Patient appears to have persistent COPD exacerbation symptoms. She already completed 5 day course of azithromycin and we will hold off antibiotics for now. We'll repeat chest x-ray PA lateral in a.m. for persistent cough and possible chills and fever to rule out any developing pneumonia. No significant fever spikes or leukocytosis or any unilateral crackles at this time. Patient uses 2 L nasal cannula oxygen at baseline and there is no increased oxygen demand. + COPD exacerbation + History of prediabetes, HFrEF, ICD, HTN, HLD, depression - Admit to general medicine - Continue O2 by nasal cannula - IV methylprednisolone 40 mg every 8 hours - TRC nebulization with albuterol and ipratropium scheduled and when necessary - Mucinex scheduled twice a day - Continue rest of the home medications - Adequate pain control - DVT prophylaxis - Repeat chest x-ray PA lateral in a.m. - Patient may require antibiotics if fever spike or significant leukocytosis - Pulmonology consult in a.m., patient is known to Dr. Giraldo - DVT prophylaxis
[2017-07-23] MEDS ORDERED: RANITIDINE HCL150 MG PO (21:19)
[2017-07-23] MEDS ORDERED: ALPRAZOLAM0.5 M4 PO (21:19)
[2017-07-23] MEDS ORDERED: ESCITALOPRAM OXA5 MG PO (21:20)
[2017-07-23] MEDS ORDERED: SPIRIVA RESPIMAT4 GM INH (21:21)
[2017-07-23] MEDS ORDERED: SYMBICORT 16010.2 GM INH (21:21)
[2017-07-23] MEDS ORDERED: IPRAT-ALBUT 0.5-3 ML INH (21:22)
[2017-07-24 05:51] LABS: ABSOLUTE BASOPHIL COUNT 0 /CUMM (0.0-0.2); ABSOLUTE EOSINOPHIL COUNT 0 /CUMM (0.0-0.7); ABSOLUTE GRANULOCYTE CT 4.8 /CUMM (1.4-6.5); ABSOLUTE LYMPH COUNT 0.7 /CUMM (1.2-3.4); ABSOLUTE MONOCYTE COUNT 0 /CUMM (0.10-0.60); BASOPHIL % 0.1 % (0.0-2.0); EOSINOPHIL % 0 % (0-5); HEMATOCRIT 36.5 % (37-47); MEAN CORPUSCULAR HGB 29.1 PG (27.0-31.0); MEAN CORPUSCULAR HGB CONC 33.2 G/DL (33.0-37.0); MEAN CORPUSCULAR VOLUME 87.7 FL (81.0-99.0); MEAN PLATELET VOLUME 7.8 FL (7.4-10.4); PLATELET COUNT 298 /CUMM (130-400); RED BLOOD CELL CT 4.17 /CUMM (4.20-5.40); WHITE BLOOD CELL COUNT 5.5 /CUMM (4.8-10.8)
[2017-07-24 06:10] LABS: GRANULOCYTE % 85.8 % (42.2-75.2)
--- NOTE | 2017-07-24 07:16 | PN- Housestaff ---
Alyssa ZIMMERMAN,Aleta 07/24/17 0716: Subjective Follow-up For: COPD exacerbation Complaints: chest tightness Subjective: Patient seen and examined at bedside. Patient lying in her bed on 2 L of oxygen. No acute distress. She complains of chest tightness. She said her " lungs are opening up slowly". She denies chest pain, shortness of breath, headache, cough, chills, nasal congestion, fever. Review of Systems Constitutional: Reports: see HPI. Objective Last 24 Hrs of Vital Signs/I&O Vital Signs Date Time Temp Pulse Resp B/P B/P Pulse O2 O2 Flow FiO2 Mean Ox Delivery Rate 07/24 0600 98.1 80 18 132/73 98 Nasal 2.0L Cannula 07/24 0150 96 Nasal 2.0L Cannula 07/24 0045 98.2 72 20 161/71 97 Nasal 2.0L Cannula 07/23 2331 96.7 76 20 160/81 96 Nasal 2.0L Cannula 07/23 2258 73 152/83 07/23 2237 73 152/83 07/23 2055 97.6 73 20 152/83 98 Nasal 2.0L Cannula 07/23 2001 100 Nasal 2.0L Cannula 07/23 1924 67 20 157/75 96 Nasal 2.0L Cannula 07/23 1752 96 Nasal 2.0L Cannula 07/23 1745 96.9 72 20 131/88 97 Nasal 2.0L Cannula 07/23 1743 97 Nasal 2.0L Cannula 07/23 1425 97.9 75 20 162/92 98 Nasal 2.0L Cannula Intake & Output 07/24 1600 07/24 0800 07/24 0000 Intake Total 240 Output Total 0 Balance 240 Intake, Oral 240 Output, Urine 0 Physical Exam General Appearance: Alert, Oriented X3, Cooperative, No Acute Distress Cardiovascular: Regular Rate, Normal S1, Normal S2, No Murmurs Lungs: bilateral mild wheeze both lung bases Abdomen: Soft, No Tenderness, No Hepatospenomegaly Neurological: Strength at 5/5 X4 Ext, Normal Tone, Sensation Intact, Cranial Nerves 3-12 NL Current Medications: Current Medications Sig/Sharyn Start time Last Medication Dose Route Stop Time Status Admin Albuterol Sulfate 3 ML ONCE ONE 07/24 0200 DC 07/24 INH 07/24 200 0153 Albuterol Sulfate 18 ML ONCE ONE 07/23 1945 DC 07/23 INH 07/23 194 194 Albuterol Sulfate 3 ML ONCE ONE 07/23 1745 DC 07/23 INH 07/23 1746 1754 Alprazolam 0 .STK-MED ONE 07/24 0022 DC PO Alprazolam 0.5 MG TIDPRN 07/23 2129 AC 07/24 PO 07/30 2128 0024 Amlodipine Besylate 0 .STK-MED ONE 07/23 230 DC PO Amlodipine Besylate 5 MG DAILY 07/23 2121 AC 07/23 PO 2258 Azithromycin 500 MG ONCE ONE 07/23 1745 DC 07/23 Dextrose/Water 250 ML IV 07/23 1844 1837 Budesonide/ 2 PUF BID 07/23 2199 AC 07/23 Formoterol Fumarate INH 3 Carvedilol 12.5 MG BID 07/23 2199 AC 07/23 PO 2237 Enoxaparin Sodium 40 MG DAILY 07/23 2114 AC SC Escitalopram Oxalate 5 MG DAILY 07/23 2122 AC 07/23 PO 2237 Famotidine 0 .STK-MED ONE 07/23 2302 DC PO Famotidine 20 MG BID 07/23 2199 AC 07/23 PO 2259 Furosemide 40 MG Q48H 07/24 1000 AC PO Guaifenesin 600 MG Q12 07/24 0331 DC 07/24 PO 0339 Guaifenesin 600 MG Q12 07/230 AC 07/23 PO 2237 Ipratropium [place] 2.5 ML ONCE ONE 07/24 0200 DC 07/24 INH 07/24 0201 0152 Ipratropium [place] 2.5 ML ONCE ONE 07/23 1745 DC 07/23 INH 07/23 1746 1754 Methylprednisolone 0 .STK-MED ONE 07/24 0658 DC .ROUTE Methylprednisolone 40 MG Q8 07/23 220 AC 07/24 IV 0653 Methylprednisolone 0 .STK-MED ONE 07/23 1825 DC .ROUTE Methylprednisolone 125 MG ONCE ONE 07/23 1745 DC 07/23 IV 07/23 1746 1837 Sodium Chloride 1,000 ML BOLUS ONE 07/23 2144 DC 07/23 IV 07/23 2244 2237 Sodium Chloride 2 SPRAY Q4P PRN 07/23 2129 AC ANNELISE Last 24 Hrs of Lab/Lorenzo Results Last 24 Hrs of Labs/Mics: Laboratory Tests 07/24/17 0543: Lactic Acid 1.2 07/24/17 0543: Anion Gap 9, Estimated GFR > 60, BUN/Creatinine Ratio 28.3 H, CBC w Diff MAN DIFF ORDERED, RBC 4.17 L, MCV 87.7, MCH 29.1, MCHC 33.2, RDW 14.0, MPV 7.8, Gran % 85.8 H, Lymphocytes % 13.3 L, Monocytes % 0.8 L, Eosinophils % 0, Basophils % 0.1, Absolute Granulocytes 4.8, Segmented Neutrophils 84 H, Band Neutrophils 6 H, Absolute Lymphocytes 0.7 L, Lymphocytes 9 L, Monocytes 1 L, Absolute Monocytes 0 L, Absolute Eosinophils 0, Absolute Basophils 0, Platelet Estimate ADEQUATE, Normocytic RBCs VERIFIED, Normochromic RBCs VERIFIED 07/24/17 0039: Lactic Acid 2.9 H 07/23/172050: Lactic Acid 3.4 H 07/23/171809: Anion Gap 10, Estimated GFR > 60, BUN/Creatinine Ratio 28.6 H, Glucose 102 H, Lactic Acid 1.1, Calcium 9.2, Total Bilirubin 0.7, AST 20, ALT 45, Alkaline Phosphatase 92, Troponin I < 0.01, Odo-V-Oltcvsjovdn Pept 195 H, Total Protein 7.0, Albumin 3.8, Globulin 3.2, Albumin/Globulin Ratio 1.2, CBC w Diff NO MAN DIFF REQ, RBC 4.48, MCV 88.8, MCH 28.7, MCHC 32.3 L, RDW 13.9, MPV 8.1, Gran % 56.9, Lymphocytes % 27.6, Monocytes % 12.7 H, Eosinophils % 2.2, Basophils % 0.6, Absolute Granulocytes 4.3, Absolute Lymphocytes 2.1, Absolute Monocytes 1.0 H, Absolute Eosinophils 0.2, Absolute Basophils 0 Microbiology 07/23 2116 STOOL: Clostridium difficile Toxin A & B - COLB 07/24 1743 LOWER RESP: Respiratory Culture - COLB 07/24 1743 LOWER RESP: Gram Stain - COLB 07/23 161 NASOPHARYN: Influenza Virus A & B Rapid Smear - COMP Assessment/Plan Assessment: 62 YO F ex-smoker (1 pack/d, quit 3 yrs ago) with PMH of HTN, CHF with EF 15-20% S/P ICD, HLD, COPD/asthma on 2L home O2, GERD and anxiety/depression came to ED with chief complaint of worsening weakness, nonproductive cough, shortness of breath with wheezing for last 2 days. Assessment and plan 1.COPD exacerbation past smoker 2.Asthma 3.HFrEF ejection fraction 20% post ICD placement. 4. Hypertension 5. Hyperlipidemia 6. Depression * Patient admitted for COPD exacerbation. Treated with TRC nebulization and IV methylprednisone 40 every 12. Patient was recently treated with azithromycin and tapering dose of prednisone on July 06. Patient says that her recent nebulization which was changed 5 months ago doesn't work and help with her breathing. Continue nebulization. Her chest x-ray showed borderline peribronchial thickening reflecting adequate inflammation. If needed we will take a repeat chest x-ray in the morning. Mucinex, saline nasal spray. * Chronic medical condition -Congestive heart failure with reduced ejection fraction [last known ejection fraction in the EMR is 15-20%]-Post ICD placement in 2014. Patient says that she had a recent echo in January 2017 [report unavailable.] Patient is not on RAYMUNDO inhibitor/ARBS[patient has developed ANGIO edema secondary to lisinopril use]. We will continue Lasix, carvedilol 12.5 mg twice a day, amlodipine 5 mg daily, alprazolam 0.5 mg 3 times a day when necessary. We will involve cardiology Dr. Bello to help us with optimization of heart failure medications. Problem List: 1. COPD exacerbation 2. Bronchitis Pain Ratin Pain Location: None Pain Goal: Remain pain free Pain Plan: Tylenol Tomorrow's Labs & Rationales: CBC, BEP Davis Cam 07/24/17 1101: Attending MD Review Statement Attending Statement Attending MD Statement: examined this patient, discuss w/resident/PA/SALES REPRESENTATIVE [facility], agreed w/resident/PA/SALES REPRESENTATIVE [facility], discussed with family, reviewed EMR data (avail), discussed with nursing, discussed with case mgmt, reviewed images, amended to note Attending Assessment/Plan: Assessment and plan 62-year-old female with multiple comorbidities presented in ER for worsening of shortness of breath, wheezing. She has h/o Systolic heart failure s/p AICD. Denies any new complaints, no chest pain. 1 COPD exacerbation 2 History of prediabetes, HFrEF, ICD, HTN, HLD, depression 3. H/o congestive heart failuer not on Raymundo inhibitor 2/2 angioedema. - Admit to general medicine - Continue O2 by nasal cannula - IV steroids, azithromycin. - TRC nebulization with albuterol and ipratropium scheduled and when necessary - Mucinex scheduled twice a day - Continue rest of the home medications - Adequate pain control - DVT prophylaxis - f/u brianna, consult cardiology for optimisation of heart failure meds. - DVT prophylaxis
--- NOTE | 2017-07-24 09:27 | RADIOLOGY REPORT ---
EXAMINATION: XR PORTABLE CHEST CLINICAL INFORMATION: Cough and shortness of breath. COMPARISON: Prior chest radiograph, most recently 07/23/2017. TECHNIQUE: Portable frontal view of the chest was obtained. FINDINGS: No significant abnormality is noted involving the heart, lungs, mediastinum, bony thorax or soft tissues. A single-lead, single-chamber pacemaker/defibrillator device shows no lead fracture or change in lead tip positions. IMPRESSION: Unremarkable examination.
--- NOTE | 2017-07-24 13:17 | Cons- Pulmonary ---
General Information and HPI Consulting Request Date of Consult: 07/24/17 Requested By: Dr. Cam Reason for Consult: COPD exacerbation Source of Information: patient Exam Limitations: no limitations History of Present Illness: 62 yo F with Hx of Asthma and COPD was admitted for worsening dyspnea. On home o2. Known from office. Former smoker, quit Apr 2013. She also has a Hx of HFrEF with EF of 35% s/p ICD, HTN, and depression. CXR unremarkable. No fever, no wbc. Allergies/Medications Allergies: Coded Allergies: lisinopril (Mild, COUGH, DIARRHE, DIZZINESS 05/22/16) montelukast (HEART PALPITATIONS 05/22/16) Home Med List: Alprazolam 0.5 MG TABLET 1 TAB PO TIDPRN ANXIETY (Reported) Amlodipine Besylate (Norvasc) 5 MG TABLET 1 TAB PO DAILY HEART (Reported) Budesonide/Formoterol Fumarate (Symbicort 160-4.5 Mcg Inhaler) 160 MCG-4.5 MCG/ ACTUATION HFA.AER.AD 2 PUF INH BID COPD (Reported) Carvedilol 12.5 MG TABLET 1 TAB PO BID HEART (Reported) Escitalopram Oxalate 5 MG TABLET 1 TAB PO DAILY ANXIETY (Reported) Furosemide 40 MG TABLET 1 TAB PO EOD WATER PILL (Reported) Ibuprofen 800 MG TABLET 1 TAB PO BID PRN PAIN (Reported) Ipratropium/Albuterol Sulfate (Iprat-Albut 0.5-3(2.5) MG/3 Ml) 0.5 MG-3 MG (2.5 MG BASE)/3 ML AMPUL.NEB 3 ML INH Q4 HRS NEEDED PRN COPD (Reported) Mometasone Furoate (Nasonex) 50 MCG SPRAY.PUMP 2 SPRAY NASB DAILY ASTHMA ( Reported) Ranitidine (Ranitidine HCl) 150 MG TABLET 1 TAB PO BID ACID REFLUX (Reported) Tiotropium [place] (Spiriva Respimat) 2.5 MCG/ACTUATION MIST.INHAL 2 PUFF INH BID COPD (Reported) Current Medications: Current Medications Sig/Sharyn Start time Last Medication Dose Route Stop Time Status Admin Albuterol Sulfate 3 ML EVERY 4 HRS/AWAKE 07/24 1200 AC 07/24 INH 1200 Albuterol Sulfate 3 ML ONCE ONE 07/24 0200 DC 07/24 INH 07/24 0201 0153 Albuterol Sulfate 18 ML ONCE ONE 07/23 1945 DC 07/23 INH 07/23 194 1945 Albuterol Sulfate 3 ML ONCE ONE 07/23 1745 DC 07/23 INH 07/23 1746 1754 Alprazolam 0 .STK-MED ONE 07/24 1028 DC PO Alprazolam 0 .STK-MED ONE 07/24 0022 DC PO Alprazolam 0.5 MG TIDPRN 07/23 2129 AC 07/24 PO 07/30 2128 1024 Amlodipine Besylate 0 .STK-MED ONE 07/23 2303 DC PO Amlodipine Besylate 5 MG DAILY 07/23 2121 AC 07/24 PO 0943 Azithromycin 500 MG ONCE ONE 07/23 1745 DC 07/23 Dextrose/Water 250 ML IV 07/23 1844 1837 Budesonide/ 2 PUF BID 07/23 2199 AC 07/24 Formoterol Fumarate INH 0943 Carvedilol 12.5 MG BID 07/23 2199 AC 07/24 PO 0943 Enoxaparin Sodium 40 MG DAILY 07/23 2114 AC SC Escitalopram Oxalate 5 MG DAILY 07/23 2122 AC 07/24 PO 0943 Famotidine 0 .STK-MED ONE 07/23 2303 DC PO Famotidine 20 MG BID 07/23 2199 AC 07/24 PO 0943 Furosemide 40 MG Q48H 07/24 1000 AC 07/24 PO 0943 Guaifenesin 600 MG Q12 07/24 0331 DC 07/24 PO 0339 Guaifenesin 600 MG Q12 07/23 2200 AC 07/24 PO 0943 Ipratropium [place] 2.5 ML EVERY 4 HRS/AWAKE 07/24 1200 AC 07/24 INH 1200 Ipratropium [place] 2.5 ML ONCE ONE 07/24 0200 DC 07/24 INH 07/24 0201 0152 Ipratropium [place] 2.5 ML ONCE ONE 07/23 1745 DC 07/23 INH 07/23 174 1754 Methylprednisolone 0 .STK-MED ONE 07/24 0658 DC .ROUTE Methylprednisolone 40 MG Q8 07/23 2200 AC 07/24 IV 0653 Methylprednisolone 0 .STK-MED ONE 07/23 1825 DC .ROUTE Methylprednisolone 125 MG ONCE ONE 07/23 1745 DC 07/23 IV 07/23 1746 1837 Sodium Chloride 1,000 ML BOLUS ONE 07/23 2145 DC 07/23 IV 07/234 2237 Sodium Chloride 2 SPRAY Q4P PRN 07/23 2130 AC ANNELISE Review of Systems Comments 18 point review of systems was performed and reviewed. Please see pertinent positives and pertinent negatives in the HPI. Otherwise ROS is negative. Past History Travel History Traveled to [place] past 21 day No Medical History EENT: NONE Cardiovascular: CHF, hypertension, hyperlipidemia, DEFIBULATOR LCW Respiratory: asthma, COPD Gastrointestinal: NONE Hepatic: NONE Renal: NONE Musculoskeletal: NONE Psychiatric: NONE Endocrine: NONE Blood Disorders: NONE Cancer(s): NONE LAST SORTER/Reproductive: NONE Surgical History Surgical History: appendectomy, cholecystectomy Family History Relations & Conditions If Any: MOTHER, . BROTHER grandmother MOTHER DAUGHTER Relation not specified for: FH: diabetes mellitus FHx: asthma FHx: premature coronary heart disease Psychosocial History Who Do You Live With? spouse, child Services at Home: None Smoking Status: Former Smoker ETOH Use: occasional use Illicit Drug Use: denies illicit drug use Living Will? yes Functional Ability ADLs Independent: dressing, eating, toileting, bathing. Ambulation: independent IADLs Independent: shopping, housework, finances, food prep, telephone, transportation , medication admin. Exam & Diagnostic Data Last 24 Hrs of Vital Signs/I&O Vital Signs Date Time Temp Pulse Resp B/P B/P Pulse O2 O2 Flow FiO2 Mean Ox Delivery Rate 07/24 1054 95 Nasal 2.0L Cannula 07/24 0959 Nasal 2.0L Cannula 07/24 0945 97.7 87 20 146/78 95 Nasal 2.0L Cannula 07/24 0943 97.7 87 20 147/78 07/24 0943 97.7 87 20 147/78 07/24 0600 98.1 80 18 132/73 98 Nasal 2.0L Cannula 07/24 0150 96 Nasal 2.0L Cannula 07/24 0045 98.2 72 20 161/71 97 Nasal 2.0L Cannula 07/23 2331 96.7 76 20 160/81 96 Nasal 2.0L Cannula 07/23 2258 73 152/83 07/23 2237 73 152/83 07/235 97.6 73 20 152/83 98 Nasal 2.0L Cannula 07/23 2000 100 Nasal 2.0L Cannula 07/23 1924 67 20 157/75 96 Nasal 2.0L Cannula 07/23 1752 96 Nasal 2.0L Cannula 07/23 1745 96.9 72 20 131/88 97 Nasal 2.0L Cannula 07/23 1743 97 Nasal 2.0L Cannula 07/23 1425 97.9 75 20 162/92 98 Nasal 2.0L Cannula Intake & Output 07/24 1600 07/24 0800 07/24 0000 Intake Total 240 Output Total 0 Balance 240 Intake, Oral 240 Output, Urine 0 Patient 180 lb Weight Weight Reported by Patient Measurement Method Physical Exam Other Physical Findings: Generally - Awake, alert Head and neck - normocephalic, atraumatic, EOMI grossly intact Cardiovascular - S1, S2 Lungs - rare rhonchi Abdomen - Bowel sounds positive, soft, non-tender Extremities - without edema Last 48 Hrs of Labs/Lorenzo: Laboratory Tests 07/24/17 0543: Lactic Acid 1.2 07/24/17 0543: Anion Gap 9, Estimated GFR > 60, BUN/Creatinine Ratio 28.3 H, CBC w Diff MAN DIFF ORDERED, RBC 4.17 L, MCV 87.7, MCH 29.1, MCHC 33.2, RDW 14.0, MPV 7.8, Gran % 85.8 H, Lymphocytes % 13.3 L, Monocytes % 0.8 L, Eosinophils % 0, Basophils % 0.1, Absolute Granulocytes 4.8, Segmented Neutrophils 84 H, Band Neutrophils 6 H, Absolute Lymphocytes 0.7 L, Lymphocytes 9 L, Monocytes 1 L, Absolute Monocytes 0 L, Absolute Eosinophils 0, Absolute Basophils 0, Platelet Estimate ADEQUATE, Normocytic RBCs VERIFIED, Normochromic RBCs VERIFIED 07/24/17 0039: Lactic Acid 2.9 H 07/23/172050: Lactic Acid 3.4 H 07/23/171809: Anion Gap 10, Estimated GFR > 60, BUN/Creatinine Ratio 28.6 H, Glucose 102 H, Lactic Acid 1.1, Calcium 9.2, Total Bilirubin 0.7, AST 20, ALT 45, Alkaline Phosphatase 92, Troponin I < 0.01, Igi-P-Drcnlreswdl Pept 195 H, Total Protein 7.0, Albumin 3.8, Globulin 3.2, Albumin/Globulin Ratio 1.2, CBC w Diff NO MAN DIFF REQ, RBC 4.48, MCV 88.8, MCH 28.7, MCHC 32.3 L, RDW 13.9, MPV 8.1, Gran % 56.9, Lymphocytes % 27.6, Monocytes % 12.7 H, Eosinophils % 2.2, Basophils % 0.6, Absolute Granulocytes 4.3, Absolute Lymphocytes 2.1, Absolute Monocytes 1.0 H, Absolute Eosinophils 0.2, Absolute Basophils 0 Microbiology 07/23 1616 NASOPHARYN: Influenza Virus A & B Rapid Smear - COMP Assessment/Plan Impression/Plan: Impression 62 year old woman * Acute exacerbation of COPD * chronic hypoxemic respiratory failure Plan -trc/nebs -use albuterol/ipratropium - hold spiriva until discharged -cont lasix -reduce solumedrol to 40mg iv q12h -monitor finger sticks -mucinex -hold spiriva -cont symbicort DVT prophylaxis at all times Consult Acknowledgment - Thank you for your consult request.
[2017-07-24 14:31] VITALS: BP 132/70
[2017-07-24 22:23] VITALS: BP 132/76
[2017-07-25 06:38] VITALS: BP 130/80
--- NOTE | 2017-07-25 07:27 | PN- Housestaff ---
Alyssa ZIMMERMAN,Aleta 07/25/17 0726: Subjective Follow-up For: COPD exacerbation Complaints: no complaints Subjective: Patient seen and examined at bedside. No overnight events. She denies cough, fever, shortness of breath, wheeze, nausea, vomiting, abdominal pain. Review of Systems Constitutional: Reports: see HPI. Objective Last 24 Hrs of Vital Signs/I&O Vital Signs Date Time Temp Pulse Resp B/P B/P Pulse O2 O2 Flow FiO2 Mean Ox Delivery Rate 07/25 0638 98.5 76 24 130/80 95 Nasal 2.0L Cannula 07/25 0032 95 Nasal 2.0L Cannula 07/24 2223 98.7 76 24 132/76 94 Nasal 2.0L Cannula 07/24 2128 98.7 76 24 132/76 07/24 1633 93 Nasal 2.0L Cannula 07/24 1600 Room Air 2.0L 07/24 1431 97.9 82 20 132/70 95 Nasal 2.0L Cannula 07/24 1400 Nasal 2.0L Cannula 07/24 1259 98.4 82 20 162/79 95 Nasal 2.0L Cannula 07/24 1054 95 Nasal 2.0L Cannula 07/24 0959 Nasal 2.0L Cannula 07/24 0945 97.7 87 20 146/78 95 Nasal 2.0L Cannula 07/24 0943 97.7 87 20 147/78 07/24 0943 97.7 87 20 147/78 Intake & Output 07/25 1600 07/25 0800 07/25 0000 Intake Total 480 Output Total Balance 480 Intake, Oral 480 Patient 200 lb Weight Physical Exam General Appearance: Alert, Oriented X3, Cooperative, No Acute Distress Cardiovascular: Regular Rate, Normal S1, Normal S2, No Murmurs Lungs: bilateral wheeze present Abdomen: Soft, No Tenderness, No Hepatospenomegaly Neurological: Strength at 5/5 X4 Ext, Normal Tone, Sensation Intact, Cranial Nerves 3-12 NL Extremities: No Cyanosis, No Edema, Normal Pulses Current Medications: Current Medications Sig/Sharyn Start time Last Medication Dose Route Stop Time Status Admin Albuterol Sulfate 3 ML EVERY 4 HRS/AWAKE 07/24 1200 AC 07/25 INH 0611 Alprazolam 0 .STK-MED ONE 07/24 1028 DC PO Alprazolam 0.5 MG TIDPRN 07/23 2129 AC 07/24 PO 07/30 Amlodipine Besylate 5 MG DAILY 07/23 2121 AC 07/24 PO 0943 Budesonide/ 2 PUF BID 07/23 2199 AC 07/24 Formoterol Fumarate INH 5 Carvedilol 12.5 MG BID 07/23 2199 AC 07/24 PO 2128 Enoxaparin Sodium 40 MG DAILY 07/23 2114 AC SC Escitalopram Oxalate 5 MG DAILY 07/23 2122 AC 07/24 PO 0943 Famotidine 20 MG BID 07/23 2199 AC 07/24 PO 2127 Furosemide 40 MG Q48H 07/24 1000 AC 07/24 PO 0943 Guaifenesin 600 MG Q12 07/23 2199 AC 07/24 PO 2126 Ipratropium [place] 2.5 ML EVERY 4 HRS/AWAKE 07/24 1200 AC 07/25 INH 0612 Methylprednisolone 40 MG Q12 07/24 2199 AC 07/24 IV 2128 Methylprednisolone 40 MG Q8 07/23 2199 DC 07/24 IV 0653 Sodium Chloride 2 SPRAY Q4P PRN 07/23 2129 AC ANNELISE Zolpidem Tartrate 5 MG AT BEDTIME 07/24 2199 AC 07/24 PO 2337 Last 24 Hrs of Lab/Lorenzo Results Last 24 Hrs of Labs/Mics: Laboratory Tests 07/25/17 0710: Sodium Pending, Potassium Pending, Chloride Pending, Carbon Dioxide Pending, Anion Gap Pending, BUN Pending, Creatinine Pending, BUN/Creatinine Ratio Pending , CBC w Diff Pending, WBC Pending, RBC Pending, Hgb Pending, Hct Pending, MCV Pending, MCH Pending, MCHC Pending, RDW Pending, Plt Count Pending, MPV Pending Assessment/Plan Assessment: 62 YO F ex-smoker (1 pack/d, quit 3 yrs ago) with PMH of HTN, CHF with EF 15-20% S/P ICD, HLD, COPD/asthma on 2L home O2, GERD and anxiety/depression came to ED with chief complaint of worsening weakness, nonproductive cough, shortness of breath with wheezing for last 2 days. Assessment and plan 1.COPD exacerbation past smoker 2.Asthma 3.HFrEF ejection fraction 20% post ICD placement. 4. Hypertension 5. Hyperlipidemia 6. Depression * Patient admitted for COPD exacerbation. Treated with TRC nebulization and IV methylprednisone 40 every 12. Patient was recently treated with azithromycin and tapering dose of prednisone on July 06. Patient says that her recent nebulization which was changed 5 months ago doesn't work and help with her breathing. Continue nebulization. Her chest x-ray showed borderline peribronchial thickening reflecting adequate inflammation. We will change IV prednisone to by mouth prednisone today. Continue Mucinex, saline nasal spray. We will add Mucomyst nebulizers twice a day. * Chronic medical condition -Congestive heart failure with reduced ejection fraction [last known ejection fraction in the EMR is 15-20%]-Post ICD placement in 2014. Patient says that she had a recent echo in January 2017 [report unavailable.] Patient is not on RAYMUNDO inhibitor/ARBS[patient has developed ANGIO edema secondary to lisinopril use]. We will continue Lasix, carvedilol 12.5 mg twice a day, amlodipine 5 mg daily, alprazolam 0.5 mg 3 times a day when necessary. We will involve cardiology Dr. Bello to help us with optimization of heart failure medications. Problem List: 1. COPD exacerbation Pain Ratin Pain Location: none Pain Goal: Remain pain free Pain Plan: tylenol Tomorrow's Labs & Rationales: cbc,bep Davis Cam 07/25/17 1118: Attending MD Review Statement Attending Statement Attending MD Statement: examined this patient, discuss w/resident/PA/GLAZING MACHINE OPERATOR, agreed w/resident/PA/GLAZING MACHINE OPERATOR, discussed with family, reviewed EMR data (avail), discussed with nursing, discussed with case mgmt, reviewed images, amended to note Attending Assessment/Plan: Assessment and plan 62-year-old female with multiple comorbidities presented in ER for worsening of shortness of breath, wheezing. She has h/o Systolic heart failure s/p AICD. Still has b/l wheezing. Denies any new complaints, no chest pain. 1 COPD exacerbation 2 History of prediabetes, HFrEF, ICD, HTN, HLD, depression 3. H/o congestive heart failuer not on Raymundo inhibitor 2/2 angioedema. - Admit to general medicine - Continue O2 by nasal cannula - Taper steroids, azithromycin. - TRC nebulization with albuterol and ipratropium scheduled and when necessar - Continue rest of the home medications - Adequate pain control - DVT prophylaxis - f/u pumonary, Informed cardiology for optimisation of heart failure meds. - DVT prophylaxis Anticipate dc in next 24-48 hrs and if ok with pulmonary.
[2017-07-25 08:06] LABS: ABSOLUTE BASOPHIL COUNT 0 /CUMM (0.0-0.2); ABSOLUTE EOSINOPHIL COUNT 0 /CUMM (0.0-0.7); ABSOLUTE GRANULOCYTE CT 14.2 /CUMM (1.4-6.5); ABSOLUTE LYMPH COUNT 1.1 /CUMM (1.2-3.4); ABSOLUTE MONOCYTE COUNT 0.3 /CUMM (0.10-0.60); BASOPHIL % 0.1 % (0.0-2.0); EOSINOPHIL % 0 % (0-5); HEMATOCRIT 36.9 % (37-47); MEAN CORPUSCULAR HGB CONC 32.9 G/DL (33.0-37.0); MEAN CORPUSCULAR VOLUME 88.3 FL (81.0-99.0); MEAN PLATELET VOLUME 8.2 FL (7.4-10.4); PLATELET COUNT 308 /CUMM (130-400); RBC DISTRIBUTION WIDTH 13.8 % (11.5-14.5); RED BLOOD CELL CT 4.18 /CUMM (4.20-5.40)
[2017-07-25 09:04] LABS: GRANULOCYTE % 90.8 % (42.2-75.2); WHITE BLOOD CELL COUNT 15.7 /CUMM (4.8-10.8)
--- NOTE | 2017-07-25 12:37 | PN- Pulmonary ---
Subjective HPI/Critical Care Issues: Generally - Awake, alert Head and neck - normocephalic, atraumatic, EOMI grossly intact Cardiovascular - S1, S2 Lungs - bilateral rhonchi Abdomen - Bowel sounds positive, soft, non-tender Extremities - without edema Objective Vital Signs & I&O Last 24 Hrs of Vitals and I&O: Vital Signs Date Time Temp Pulse Resp B/P B/P Pulse O2 O2 Flow FiO2 Mean Ox Delivery Rate 07/25 1034 94 Nasal 2.0L Cannula 07/25 0949 95 130/80 07/25 0949 95 130/80 07/25 0800 95 Nasal 2.0L Cannula 07/25 0638 98.5 76 24 130/80 95 Nasal 2.0L Cannula 07/25 0032 95 Nasal 2.0L Cannula 07/25 0000 94 Nasal 2.0L Cannula 07/24 2223 98.7 76 24 132/76 94 Nasal 2.0L Cannula 07/24 2128 98.7 76 24 132/76 07/24 1633 93 Nasal 2.0L Cannula 07/24 1600 Room Air 2.0L 07/24 1431 97.9 82 20 132/70 95 Nasal 2.0L Cannula 07/24 1400 Nasal 2.0L Cannula 07/24 1259 98.4 82 20 162/79 95 Nasal 2.0L Cannula Intake & Output 07/25 1600 07/25 0800 07/25 0000 Intake Total 0 480 Output Total Balance 0 480 Intake, IV 0 Intake, Oral 0 480 Number 0 Bowel Movements Patient 200 lb Weight Impression/Plan Impression/Plan Impression/Plan: Impression 62 year old woman * Acute exacerbation of COPD * chronic hypoxemic respiratory failure Plan -add mucomyst nebulized -trc/nebs -use albuterol/ipratropium - hold spiriva until discharged -cont lasix -continue solumedrol to 40mg iv q12h -monitor finger sticks -mucinex -hold spiriva -cont symbicort DVT prophylaxis at all times
[2017-07-25 14:21] VITALS: BP 130/76
--- NOTE | 2017-07-25 15:09 | Cons- Cardiology ---
General Information and HPI Consulting Request Date of Consult: 07/25/17 Requested By: Davis Cam MD Reason for Consult: copd exacerbation; CM Source of Information: patient, old records Exam Limitations: no limitations History of Present Illness: the patient is a 62-year-old female who is well-known to me. Her past medical history is remarkable for hypertension, nonischemic cardio myopathy, AICD, hyperlipidemia, and chronic COPD/asthma. The patient is now admitted to the hospital for worsening shortness of breath, currently being treated for respiratory-related issues with aggressive respiratory treatments, steroids, etc. Today, she is feeling somewhat better. I see no evidence of any acute cardiac issue at the moment. Allergies/Medications Allergies: Coded Allergies: lisinopril (Mild, COUGH, DIARRHE, DIZZINESS 05/22/16) montelukast (HEART PALPITATIONS 05/22/16) Home Med List: Alprazolam 0.5 MG TABLET 1 TAB PO TIDPRN ANXIETY (Reported) Amlodipine Besylate (Norvasc) 5 MG TABLET 1 TAB PO DAILY HEART (Reported) Budesonide/Formoterol Fumarate (Symbicort 160-4.5 Mcg Inhaler) 160 MCG-4.5 MCG/ ACTUATION HFA.AER.AD 2 PUF INH BID COPD (Reported) Carvedilol 12.5 MG TABLET 1 TAB PO BID HEART (Reported) Escitalopram Oxalate 5 MG TABLET 1 TAB PO DAILY ANXIETY (Reported) Furosemide 40 MG TABLET 1 TAB PO EOD WATER PILL (Reported) Ibuprofen 800 MG TABLET 1 TAB PO BID PRN PAIN (Reported) Ipratropium/Albuterol Sulfate (Iprat-Albut 0.5-3(2.5) MG/3 Ml) 0.5 MG-3 MG (2.5 MG BASE)/3 ML AMPUL.NEB 3 ML INH Q4 HRS NEEDED PRN COPD (Reported) Mometasone Furoate (Nasonex) 50 MCG SPRAY.PUMP 2 SPRAY [place] DAILY ASTHMA ( Reported) Ranitidine (Ranitidine HCl) 150 MG TABLET 1 TAB PO BID ACID REFLUX (Reported) Tiotropium [place] (Spiriva Respimat) 2.5 MCG/ACTUATION MIST.INHAL 2 PUFF INH BID COPD (Reported) Current Medications: Current Medications Sig/Sharyn Start time Last Medication Dose Route Stop Time Status Admin Acetylcysteine 2 ML BID 07/25 1028 AC 07/25 INH 1400 Albuterol Sulfate 3 ML EVERY 4 HRS/AWAKE 07/24 1200 AC 07/25 INH 1400 Alprazolam 0.5 MG TIDPRN 07/23 2130 AC 07/25 PO 07/30 212 1010 Amlodipine Besylate 5 MG DAILY 07/23 212 AC 07/25 PO 0949 Aspirin Buffered 81 MG DAILY 07/25 1015 AC 07/25 PO 1252 Budesonide/ 2 PUF BID 07/23 2200 AC 07/25 Formoterol Fumarate INH 0928 Carvedilol 12.5 MG BID 07/23 2200 AC 07/25 PO 0949 Enoxaparin Sodium 40 MG DAILY 07/23 211 AC SC Escitalopram Oxalate 5 MG DAILY 07/23 2122 AC 07/25 PO 0949 Famotidine 20 MG BID 07/23 2200 AC 07/25 PO 0948 Furosemide 40 MG Q48H 07/24 1000 AC 07/24 PO 0943 Guaifenesin 600 MG Q12 07/23 2200 AC 07/25 PO 0949 Ipratropium [place] 2.5 ML EVERY 4 HRS/AWAKE 07/24 1200 AC 07/25 INH 1404 Methylprednisolone 40 MG Q12 07/24 220 AC 07/25 IV 0948 Patient Medication 1 ED ONE ONE 07/25 1100 DC 07/25 Teaching ED 07/25 1101 1252 Sodium Chloride 2 SPRAY Q4P PRN 07/23 2129 AC ANNELISE Zolpidem Tartrate 5 MG AT BEDTIME 07/24 2199 AC 07/24 PO 2337 Past History Travel History Traveled to [place] past 21 day No Medical History EENT: NONE Cardiovascular: CHF, hypertension, hyperlipidemia, DEFIBULATOR LCW Respiratory: asthma, COPD Gastrointestinal: NONE Hepatic: NONE Renal: NONE Musculoskeletal: NONE Psychiatric: NONE Endocrine: NONE Blood Disorders: NONE Cancer(s): NONE HOUSESMITH/Reproductive: NONE Surgical History Surgical History: appendectomy, cholecystectomy Family History Relations & Conditions If Any: MOTHER, . BROTHER grandmother MOTHER DAUGHTER Relation not specified for: FH: diabetes mellitus FHx: asthma FHx: premature coronary heart disease Psychosocial History Who Do You Live With? spouse, child Services at Home: None Smoking Status: Former Smoker ETOH Use: occasional use Illicit Drug Use: denies illicit drug use Living Will? yes Functional Ability ADLs Independent: dressing, eating, toileting, bathing. Ambulation: independent IADLs Independent: shopping, housework, finances, food prep, telephone, transportation , medication admin. Exam & Diagnostic Data Vital Signs and I&O Vital Signs Date Time Temp Pulse Resp B/P B/P Pulse O2 O2 Flow FiO2 Mean Ox Delivery Rate 07/25 1421 98.4 77 20 130/76 97 Nasal 2.0L Cannula 07/25 1408 Nasal 2.0L Cannula 07/25 1034 94 Nasal 2.0L Cannula 07/25 0949 95 130/80 07/25 0949 95 130/80 07/25 0800 95 Nasal 2.0L Cannula 07/25 0638 98.5 76 24 130/80 95 Nasal 2.0L Cannula 07/25 0032 95 Nasal 2.0L Cannula 07/25 0000 94 Nasal 2.0L Cannula 07/24 2223 98.7 76 24 132/76 94 Nasal 2.0L Cannula 07/24 2128 98.7 76 24 132/76 07/24 1633 93 Nasal 2.0L Cannula 07/24 1600 Room Air 2.0L Intake & Output 07/25 1600 07/25 0800 07/25 0000 07/24 1600 07/24 0800 07/24 0000 Intake Total 0 480 120 240 Output Total 0 Balance 0 480 120 240 Intake, IV 0 Intake, Oral 0 480 120 240 Number 0 Bowel Movements Output, Urine 0 Patient 200 lb 180 lb Weight Weight Reported by Patient Measurement Method Labs/Lorenzo Results: Laboratory Tests 07/25 07/24 0710 0543 Chemistry Sodium (137 - 145 mmol/L) 144 Potassium (3.5 - 5.1 mmol/L) 4.3 Chloride (98 - 107 mmol/L) 103 Carbon Dioxide (22 - 30 mmol/L) 28 Anion Gap (5 - 16) 13 BUN (7 - 17 mg/dL) 21 H Creatinine (0.5 - 1.0 mg/dL) 0.7 Estimated GFR (>60 ml/min) > 60 BUN/Creatinine Ratio (7 - 25 %) 30.0 H Lactic Acid (0.7 - 2.1 mmol/L) 1.2 Hematology CBC w Diff NO MAN DIFF REQ WBC (4.8 - 10.8 /CUMM) 15.7 H RBC (4.20 - 5.40 /CUMM) 4.18 L Hgb (12.0 - 16.0 G/DL) 12.1 Hct (37 - 47 %) 36.9 L MCV (81.0 - 99.0 FL) 88.3 MCH (27.0 - 31.0 PG) 29.0 MCHC (33.0 - 37.0 G/DL) 32.9 L RDW (11.5 - 14.5 %) 13.8 Plt Count (130 - 400 /CUMM) 308 MPV (7.4 - 10.4 FL) 8.2 Gran % (42.2 - 75.2 %) 90.8 H Lymphocytes % (20.5 - 51.1 %) 7.1 L Monocytes % (1.7 - 9.3 %) 2.0 Eosinophils % (0 - 5 %) 0 Basophils % (0.0 - 2.0 %) 0.1 Absolute Granulocytes (1.4 - 6.5 /CUMM) 14.2 H Absolute Lymphocytes (1.2 - 3.4 /CUMM) 1.1 L Absolute Monocytes (0.10 - 0.60 /CUMM) 0.3 Absolute Eosinophils (0.0 - 0.7 /CUMM) 0 Absolute Basophils (0.0 - 0.2 /CUMM) 0 07/24 07/24 07/23 0543 003 2051 Chemistry Sodium (137 - 145 mmol/L) 143 Potassium (3.5 - 5.1 mmol/L) 4.6 Chloride (98 - 107 mmol/L) 106 Carbon Dioxide (22 - 30 mmol/L) 28 Anion Gap (5 - 16) 9 BUN (7 - 17 mg/dL) 17 Creatinine (0.5 - 1.0 mg/dL) 0.6 Estimated GFR (>60 ml/min) > 60 BUN/Creatinine Ratio (7 - 25 %) 28.3 H Lactic Acid (0.7 - 2.1 mmol/L) 2.9 H 3.4 H Hematology CBC w Diff MAN DIFF ORDERED WBC (4.8 - 10.8 /CUMM) 5.5 RBC (4.20 - 5.40 /CUMM) 4.17 L Hgb (12.0 - 16.0 G/DL) 12.1 Hct (37 - 47 %) 36.5 L MCV (81.0 - 99.0 FL) 87.7 MCH (27.0 - 31.0 PG) 29.1 MCHC (33.0 - 37.0 G/DL) 33.2 RDW (11.5 - 14.5 %) 14.0 Plt Count (130 - 400 /CUMM) 298 MPV (7.4 - 10.4 FL) 7.8 Gran % (42.2 - 75.2 %) 85.8 H Lymphocytes % (20.5 - 51.1 %) 13.3 L Monocytes % (1.7 - 9.3 %) 0.8 L Eosinophils % (0 - 5 %) 0 Basophils % (0.0 - 2.0 %) 0.1 Absolute Granulocytes (1.4 - 6.5 /CUMM) 4.8 Segmented Neutrophils (42.2 - 75.2 %) 84 H Band Neutrophils (0.0 - 5.0 %) 6 H Absolute Lymphocytes (1.2 - 3.4 /CUMM) 0.7 L Lymphocytes (20.5 - 51.1 %) 9 L Monocytes (1.7 - 9.3 %) 1 L Absolute Monocytes (0.10 - 0.60 /CUMM) 0 L Absolute Eosinophils (0.0 - 0.7 /CUMM) 0 Absolute Basophils (0.0 - 0.2 /CUMM) 0 Platelet Estimate (ADEQUATE) ADEQUATE Normocytic RBCs VERIFIED Normochromic RBCs VERIFIED 07/23 1809 Chemistry Sodium (137 - 145 mmol/L) 142 Potassium (3.5 - 5.1 mmol/L) 4.5 Chloride (98 - 107 mmol/L) 104 Carbon Dioxide (22 - 30 mmol/L) 28 Anion Gap (5 - 16) 10 BUN (7 - 17 mg/dL) 20 H Creatinine (0.5 - 1.0 mg/dL) 0.7 Estimated GFR (>60 ml/min) > 60 BUN/Creatinine Ratio (7 - 25 %) 28.6 H Glucose (65 - 99 mg/dL) 102 H Lactic Acid (0.7 - 2.1 mmol/L) 1.1 Calcium (8.4 - 10.2 mg/dL) 9.2 Total Bilirubin (0.2 - 1.3 mg/dL) 0.7 AST (14 - 36 U/L) 20 ALT (9 - 52 U/L) 45 Alkaline Phosphatase (<127 U/L) 92 Troponin I (< 0.11 ng/ml) < 0.01 [id number] Pept (<125 pg/mL) 195 H Total Protein (6.3 - 8.2 g/dL) 7.0 Albumin (3.5 - 5.0 g/dL) 3.8 Globulin (1.9 - 4.2 gm/dL) 3.2 Albumin/Globulin Ratio (1.1 - 2.2 %) 1.2 Hematology CBC w Diff NO MAN DIFF REQ WBC (4.8 - 10.8 /CUMM) 7.6 RBC (4.20 - 5.40 /CUMM) 4.48 Hgb (12.0 - 16.0 G/DL) 12.9 Hct (37 - 47 %) 39.8 MCV (81.0 - 99.0 FL) 88.8 MCH (27.0 - 31.0 PG) 28.7 MCHC (33.0 - 37.0 G/DL) 32.3 L RDW (11.5 - 14.5 %) 13.9 Plt Count (130 - 400 /CUMM) 327 MPV (7.4 - 10.4 FL) 8.1 Gran % (42.2 - 75.2 %) 56.9 Lymphocytes % (20.5 - 51.1 %) 27.6 Monocytes % (1.7 - 9.3 %) 12.7 H Eosinophils % (0 - 5 %) 2.2 Basophils % (0.0 - 2.0 %) 0.6 Absolute Granulocytes (1.4 - 6.5 /CUMM) 4.3 Absolute Lymphocytes (1.2 - 3.4 /CUMM) 2.1 Absolute Monocytes (0.10 - 0.60 /CUMM) 1.0 H Absolute Eosinophils (0.0 - 0.7 /CUMM) 0.2 Absolute Basophils (0.0 - 0.2 /CUMM) 0 Diagnostic Data CXR Results FINDINGS: No significant abnormality is noted involving the heart, lungs, mediastinum, bony thorax or soft tissues. A single-lead, single-chamber pacemaker/defibrillator device shows no lead fracture or change in lead tip positions. IMPRESSION: Unremarkable examination. Assessment/Plan Assessment/Plan Assessment: 1. Worsening dyspnea with COPD exacerbation. 2. History of NICM; last EF 35-40% 3. AICD 4. History of anxiety and depression 5. Prior history of heart failure; no evidence of heart failure at the moment. Recommendations: - Continue as per the medical and pulmonary service - No need to repeat echocardiogram at the present time - Followup with me post discharge - Consideration for cardiac / pulmonary rehab post discharge Consult Acknowledgment - Thank you for your consult request.
[2017-07-25 22:49] VITALS: BP 136/74
[2017-07-26 06:20] VITALS: BP 124/66
--- NOTE | 2017-07-26 07:11 | PN- Housestaff ---
Subjective Follow-up For: COPD exacerbation Complaints: no complaints Subjective: Patient seen and examined at bedside. No overnight events. No complaints. She denies shortness of breath, chest pain, cough, fever. Review of Systems Constitutional: Reports: see HPI. Objective Last 24 Hrs of Vital Signs/I&O Vital Signs Date Time Temp Pulse Resp B/P B/P Pulse O2 O2 Flow FiO2 Mean Ox Delivery Rate 07/26 0833 98.2 65 20 124/66 07/26 0832 98.2 65 20 124/66 07/26 0754 94 Nasal 2.0L Cannula 07/26 0620 98.2 65 20 124/66 94 Nasal Cannula 07/26 0000 Nasal 2.0L Cannula 07/25 2249 98.5 72 20 136/74 94 Nasal 2.0L Cannula 07/25 2110 72 138/80 07/25 1820 94 Nasal 2.0L Cannula 07/25 1421 98.4 77 20 130/76 97 Nasal 2.0L Cannula 07/25 1408 Nasal 2.0L Cannula 07/25 1034 94 Nasal 2.0L Cannula 07/25 0949 95 130/80 07/25 0949 95 130/80 Intake & Output 07/26 1600 07/26 0800 07/26 0000 Intake Total 410 310 Output Total Balance 410 310 Intake, IV 10 10 Intake, Oral 400 300 Number 0 0 Bowel Movements Patient 203 lb Weight Weight Bed scale Measurement Method Physical Exam General Appearance: Alert, Oriented X3, Cooperative, No Acute Distress Cardiovascular: Regular Rate, Normal S1, Normal S2, No Murmurs Lungs: Clear to Auscultation Abdomen: Normal Bowel Sounds, Soft, No Tenderness Neurological: Normal Speech, Strength at 5/5 X4 Ext, Normal Tone, Sensation Intact Extremities: No Cyanosis, No Edema, Normal Pulses Current Medications: Current Medications Sig/Sharyn Start time Last Medication Dose Route Stop Time Status Admin Acetylcysteine 2 ML BID 07/25 1028 AC 07/25 INH 1400 Albuterol Sulfate 3 ML EVERY 4 HRS/AWAKE 07/24 1200 AC 07/26 INH 0752 Alprazolam 0.5 MG TIDPRN 07/23 2129 AC 07/26 PO 07/30 2128 0837 Amlodipine Besylate 5 MG DAILY 07/23 2122 AC 07/26 PO 0832 Aspirin Buffered 81 MG DAILY 07/25 1015 AC 07/26 PO 0832 Budesonide/ 2 PUF BID 07/23 2199 AC 07/26 Formoterol Fumarate INH 0831 Carvedilol 12.5 MG BID 07/23 2199 AC 07/26 PO 0833 Enoxaparin Sodium 40 MG DAILY 07/23 2115 AC SC Escitalopram Oxalate 5 MG DAILY 07/23 2122 AC 07/26 PO 0832 Famotidine 20 MG BID 07/23 2199 AC 07/26 PO 0833 Furosemide 40 MG Q48H 07/24 1000 AC 07/26 PO 0832 Guaifenesin 600 MG Q12 07/23 2199 AC 07/26 PO 0833 Ipratropium [place] 2.5 ML EVERY 4 HRS/AWAKE 07/24 1200 AC 07/26 INH 0752 Methylprednisolone 40 MG Q12 07/24 2199 AC 07/26 IV 0831 Patient Medication 1 ED ONE ONE 07/25 1100 DC 07/25 Teaching ED 07/25 1101 1252 Sodium Chloride 2 SPRAY Q4P PRN 07/23 2129 AC ANNELISE Zolpidem Tartrate 5 MG AT BEDTIME 07/24 2199 AC 07/25 PO 2318 Last 24 Hrs of Lab/Lorenzo Results Last 24 Hrs of Labs/Mics: Laboratory Tests 07/26/17 0743: CBC w Diff Pending, WBC Pending, RBC Pending, Hgb Pending, Hct Pending, MCV Pending, MCH Pending, MCHC Pending, RDW Pending, Plt Count Pending, MPV Pending, Gran % Pending, Lymphocytes % Pending, Monocytes % Pending, Eosinophils % Pending, Basophils % Pending, Absolute Granulocytes Pending, Absolute Lymphocytes Pending, Absolute Monocytes Pending, Absolute Eosinophils Pending, Absolute Basophils Pending Assessment/Plan Assessment: 62 YO F ex-smoker (1 pack/d, quit 3 yrs ago) with PMH of HTN, CHF with EF 15-20% S/P ICD, HLD, COPD/asthma on 2L home O2, GERD and anxiety/depression came to ED with chief complaint of worsening weakness, nonproductive cough, shortness of breath with wheezing for last 2 days. Assessment and plan 1.COPD exacerbation past smoker 2.Asthma 3.HFrEF ejection fraction 20% post ICD placement. 4. Hypertension 5. Hyperlipidemia 6. Depression * Patient admitted for COPD exacerbation. Treated with TRC nebulization and IV methylprednisone 40 every 12, switched to po prednisone today. Patient was recently treated with azithromycin and tapering dose of prednisone on July 06. Patient says that her recent nebulization which was changed 5 months ago doesn't work and help with her breathing. Continue nebulization. Her chest x-ray showed borderline peribronchial thickening reflecting adequate inflammation. We will change IV prednisone to by mouth prednisone today. Continue Mucinex, saline nasal spray. We will add Mucomyst nebulizers twice a day. * Chronic medical condition -Congestive heart failure with reduced ejection fraction [last known ejection fraction in the EMR is 15-20%]-Post ICD placement in 2014. Patient says that she had a recent echo in January 2017 [EF 35%.] Patient is not on KARLOS inhibitor/ARBS[patient has developed ANGIO edema secondary to lisinopril use]. We will continue Lasix, carvedilol 12.5 mg twice a day, amlodipine 5 mg daily, alprazolam 0.5 mg 3 times a day when necessary. Pt was seen [facility] cardio, suggested to conitnue current managment. code- full code diet - regular Problem List: 1. COPD exacerbation Pain Ratin Pain Location: none Pain Goal: Remain pain free Pain Plan: tylenol Tomorrow's Labs & Rationales: none
[2017-07-26 08:21] LABS: ABSOLUTE BASOPHIL COUNT 0 /CUMM (0.0-0.2); ABSOLUTE EOSINOPHIL COUNT 0 /CUMM (0.0-0.7); ABSOLUTE GRANULOCYTE CT 16.6 /CUMM (1.4-6.5); ABSOLUTE LYMPH COUNT 1.1 /CUMM (1.2-3.4); ABSOLUTE MONOCYTE COUNT 0.4 /CUMM (0.10-0.60); BASOPHIL % 0 % (0.0-2.0); EOSINOPHIL % 0 % (0-5); HEMATOCRIT 36.2 % (37-47); MEAN CORPUSCULAR HGB 29.3 PG (27.0-31.0); MEAN CORPUSCULAR HGB CONC 33.2 G/DL (33.0-37.0); MEAN CORPUSCULAR VOLUME 88.1 FL (81.0-99.0); MEAN PLATELET VOLUME 7.9 FL (7.4-10.4); PLATELET COUNT 317 /CUMM (130-400); RBC DISTRIBUTION WIDTH 14.2 % (11.5-14.5); RED BLOOD CELL CT 4.11 /CUMM (4.20-5.40); WHITE BLOOD CELL COUNT 18.1 /CUMM (4.8-10.8)
[2017-07-26 09:56] LABS: GRANULOCYTE % 91.8 % (42.2-75.2)
--- NOTE | 2017-07-26 10:54 | Discharge Summary ---
Visit Information Visit Dates Admission Date: 07/23/17 Discharge Date: 07/26/17 Hospital Course Course Attending Physician: Davis Cam MD Primary Care Physician: Marianne ZIMMERMAN,Marianne Hospital Course: 62 YO F ex-smoker (1 pack/d, quit 3 yrs ago) with PMH of HTN, CHF with EF 35% S/ P ICD, HLD, COPD/asthma on 2L home O2, GERD and anxiety/depression came to ED with chief complaint of worsening weakness, nonproductive cough, shortness of breath with wheezing for 2 days. Patient reported that she was in her usual state of health until 2 weeks, when she had progressively worsening shortness of breath with wheezing. Patient went to see Dr. Giraldo who is her regular box inspector. Patient was prescribed azithromycin and tapering steroids for COPD exacerbation, although patient completed the course but she couldn't get better. Patient reported that for 2 days prior to admission, her shortness of breath and wheezing is worsening. Patient also reported having nonproductive cough and weakness for 2 days. Patient endorsed that she has stuffiness of the nose with bouts of nonproductive cough. Patient is using nebulization treatment for 5 days, every day but she is not getting better. Her shortness of breath is also worsening. Patient also noticed having loose bowel movements without abdominal pain for last 1 week. Her stools are nonbloody and [id number]. Patient also endorsed having chills and she reported that her son having upper respiratory tract infection for last couple of days. Patient denied any chest pain, palpitation, lightheadedness, loss of consciousness, fever, headache, abdominal pain, trauma, constipation and dysuria. Last time patient was admitted with acute hypoxic respiratory failure with COPD exacerbation in April 2016. Patient is seen Dr. Bello for heart problem. Hospital course 1.COPD exacerbation past smoker 2.Asthma 3.HFrEF ejection fraction 20% post ICD placement. 4. Hypertension 5. Hyperlipidemia 6. Depression * Patient admitted for COPD exacerbation. Treated with TRC nebulization and IV methylprednisone 40 every 12, switched to po prednisone on the day of discharge. Patient was recently treated with azithromycin and tapering dose of prednisone on July 06. Patient says that her recent nebulization which was changed 5 months ago doesn't work and help with her breathing. Case management and Dr. Giraldo is working on getting her new nebulizer. * Chronic medical condition -Congestive heart failure with reduced ejection fraction [last known ejection fraction in the EMR is 15-20%]-Post ICD placement in 2014. Patient says that she had a recent echo in January 2017 showed EF 35%. Patient is not on KARLOS inhibitor/ARBS[patient has developed ANGIO edema secondary to lisinopril use]. We will continue Lasix, carvedilol 12.5 mg twice a day, amlodipine 5 mg daily, alprazolam 0.5 mg 3 times a day when necessary. Pt was seen by cardio, suggested to diana current managment. * Patient discharged home with tapering dose of prednisone and we continued her home medication. Chest x-ray 07/23/2017 Borderline peribronchial thickening could reflect mild small airways inflammation. No evidence of pneumonia. Chest x-ray 07/24/2017 IMPRESSION: Unremarkable examination. Allergies: Coded Allergies: lisinopril (Mild, COUGH, DIARRHE, DIZZINESS 05/22/16) montelukast (HEART PALPITATIONS 05/22/16) Disposition Summary Disposition Principal Diagnosis: COPD exacerbation Additional Diagnosis: none Discharge Disposition: home or self care Discharge Instructions General Discharge Information Code Status: Full Code Patient's Diet: regular diet Patient's Activity: As tolerated Follow-Up Instructions/Appts: Please follow-up with your primary care provider and box inspector within 1-2 weeks of discharge. Medications at Discharge Discharge Medications: Continue taking these medications: Amlodipine Besylate (Norvasc) 5 MG TABLET 1 Tablet ORAL DAILY Comments: Last Taken: 05/26/16 Time: 1000 Carvedilol (Carvedilol) 12.5 MG TABLET 1 Tablet ORAL TWICE DAILY Qty = 60 Comments: Last Taken: 05/26/16 Time: 1000 Furosemide (Furosemide) 40 MG TABLET 1 Tablet ORAL Every other day Qty = 90 Comments: Last Taken: 05/26/16 Time: 1000 Ibuprofen (Ibuprofen) 800 MG TABLET 1 Tablet ORAL TWICE DAILY as needed for PAIN Comments: Last Taken: 05/25/16 Time: 6PM Mometasone Furoate (Nasonex) 50 MCG SPRAY.PUMP 2 [place] Both sides of nose DAILY Comments: Last Taken: 05/25/16 Time: 1000 Alprazolam (Alprazolam) 0.5 MG TABLET 1 Tablet ORAL THREE TIMES A DAY NEEDED Qty = 90 Ranitidine (Ranitidine HCl) 150 MG TABLET 1 Tablet ORAL TWICE DAILY Qty = 60 Escitalopram Oxalate (Escitalopram Oxalate) 5 MG TABLET 1 Tablet ORAL DAILY Qty = 30 Budesonide/Formoterol Fumarate (Symbicort 160-4.5 Mcg Inhaler) 160 MCG-4.5 MCG/ ACTUATION HFA.AER.AD 2 Puff Inhale through mouth TWICE DAILY Qty = 10 Tiotropium [place] (Spiriva Respimat) 2.5 MCG/ACTUATION MIST.INHAL 2 PUFF Inhale through mouth TWICE DAILY Qty = 4 Ipratropium/Albuterol Sulfate (Iprat-Albut 0.5-3(2.5) MG/3 Ml) 0.5 MG-3 MG (2.5 MG BASE)/3 ML AMPUL.NEB 3 [place]ilit[place] Inhale through mouth EVERY 4 HOURS NEEDED as needed for COPD Qty = 180 Start taking the following new medications: Prednisone (Prednisone) 10 MG TAB.DS.PK 10 Tablet ORAL DAILY Qty = 30 No Refills Instructions: take 3 tab on -07/29 take 2 tab on 06/29-07/01 take 1 tab on 07/02-07/04 Copies To: Marianne ZIMMERMAN,Marianne; Enzo ZIMMERMAN,Jaleel
--- NOTE | 2017-07-26 11:53 | Patient Discharge Instructions ---
Discharge Instructions General Discharge Information You were seen/treated for: COPD ExacerbatION Watch for these problems: In case of cough, chest pain, nausea, vomiting please go to the nearest emergency room Special Instructions: Please follow-up with your primary care provider within 1-2 weeks of discharge. please follow-up with your curator zoological museum Dr. Giraldo within 1-2 weeks of discharge. Diet Continue normal diet: Yes Recommended Diet: Regular Activity Full Activity/No Limits: No Activity Self Limited: Yes Acute Coronary Syndrome Inclusion Criteria At DC or during hospital stay patient has or had the following: ACS DIAGNOSIS No Discharge Core Measures Meds if any: Prescribed or Continued at Discharge Meds if any: NOT Prescribed or Continued at Discharge Congestive Heart Failure Inclusion Criteria At DC or during hospital stay patient has or had the following: CHF DIAGNOSIS No Discharge Core Measures Meds if any: Prescribed or Continued at Discharge Meds if any: NOT Prescribed or Continued at Discharge Cerebrovascular accident Inclusion Criteria At DC or during hospital stay patient has or had the following: CVA/TIA Diagnosis No Discharge Core Measures Meds if any: Prescribed or Continued at Discharge Meds if any: NOT Prescribed or Continued at Discharge Venous thromboembolism Inclusion Criteria VTE Diagnosis No VTE Type NONE VTE Confirmed by (Test) NONE Discharge Core Measures - Per Current guidelines, there needs to be overlap - treatment for the first 5 days of Warfarin therapy. - If discharged on Warfarin prior to 5 days of - overlap therapy, the patient will need to be - assessed for post discharge needs including - *Post discharge parental anticoagulation - *Warfarin and/or parental anticoagulation education - *Follow up date to check INR post discharge At least 5 days overlap therapy as Inpatient No Meds if any: Prescribed or Continued at Discharge Note: Overlap Therapy is Warfarin and Anticoagulant Meds if any: NOT Prescribed or Continued at Discharge
[2017-07-26] MEDS ORDERED: PREDNISONE10 M1 PO ×2 (13:01→16:01)
--- NOTE | 2017-07-26 13:49 | PN- Pulmonary ---
Subjective HPI/Critical Care Issues: Patient seen and examined this morning. She is doing better and awaiting discharge. Objective Current Medications: Current Medications Sig/Sharyn Start time Last Medication Dose Route Stop Time Status Admin Acetylcysteine 2 ML BID 07/25 1028 AC 07/25 INH 1400 Albuterol Sulfate 3 ML EVERY 4 HRS/AWAKE 07/24 1200 AC 07/26 INH 1149 Alprazolam 0.5 MG TIDPRN 07/23 2130 AC 07/26 PO 07/30 212 0837 Amlodipine Besylate 5 MG DAILY 07/23 2121 AC 07/26 PO 0832 Aspirin Buffered 81 MG DAILY 07/25 1015 AC 07/26 PO 0832 Budesonide/ 2 PUF BID 07/23 2200 AC 07/26 Formoterol Fumarate INH 0831 Carvedilol 12.5 MG BID 07/23 2200 AC 07/26 PO 0833 Enoxaparin Sodium 40 MG DAILY 07/23 2115 AC SC Escitalopram Oxalate 5 MG DAILY 07/23 2123 AC 07/26 PO 0832 Famotidine 20 MG BID 07/23 2200 AC 07/26 PO 0833 Furosemide 40 MG Q48H 07/24 1000 AC 07/26 PO 0832 Guaifenesin 600 MG Q12 07/23 2200 AC 07/26 PO 0833 Ipratropium [place] 2.5 ML EVERY 4 HRS/AWAKE 07/24 1200 AC 07/26 INH 1150 Methylprednisolone 40 MG Q12 07/24 2200 DC 07/26 IV 0831 Prednisone 40 MG DAILY 07/27 1000 AC PO Prednisone 40 MG DAILY 07/26 1000 DC PO Sodium Chloride 2 SPRAY Q4P PRN 07/23 2129 AC ANNELISE Zolpidem Tartrate 5 MG AT BEDTIME 07/24 2200 AC 07/25 PO 2318 Vital Signs & I&O Last 24 Hrs of Vitals and I&O: Vital Signs Date Time Temp Pulse Resp B/P B/P Pulse O2 O2 Flow FiO2 Mean Ox Delivery Rate 07/26 0833 98.2 65 20 124/66 07/26 0832 98.2 65 20 124/66 07/26 0800 94 Nasal 2.0L Cannula 07/26 0754 94 Nasal 2.0L Cannula 07/26 0620 98.2 65 20 124/66 94 Nasal Cannula 07/26 0000 Nasal 2.0L Cannula 07/259 98.5 72 20 136/74 94 Nasal 2.0L Cannula 07/25 2110 72 138/80 07/25 1820 94 Nasal 2.0L Cannula 07/25 1421 98.4 77 20 130/76 97 Nasal 2.0L Cannula 07/25 1408 Nasal 2.0L Cannula Intake & Output 07/26 1600 07/26 0800 07/26 0000 Intake Total 410 310 Output Total Balance 410 310 Intake, IV 10 10 Intake, Oral 400 300 Number 0 0 Bowel Movements Patient 203 lb Weight Weight Bed scale Measurement Method Impression/Plan Impression/Plan Impression/Plan: Impression 62 year old woman * Acute exacerbation of COPD * chronic hypoxemic respiratory failure Plan -trc/nebs -taper steroids by 10mg every 3 days -obtain nebulizer for outpatient use -dc planning -mucinex -resume spiriva upon discharge -cont symbicort DVT prophylaxis at all times
[2017-07-26 14:19] VITALS: BP 140/76
== END 2017-07-26 17:00 | DRG 140 ==
LOC: ERH 14:03 → 2NA 20:13 → ERHI 20:13 → ENTRNSPT 07-24 13:05 → EDTRNSPTSTS 07-24 13:07 → EDTRNSPT 07-24 13:07 → ENRESERV 07-24 13:20 → CMPTRNSPT 07-24 13:21 → 2NA 07-24 13:21 → ENPENDDIS 07-26 13:33 → ENTRNSPT 07-26 16:54 → EDTRNSPTSTS 07-26 16:57 → 2NA 07-26 17:00 → CMPTRNSPT 07-26 17:04
PROVIDERS: Internal Medicine; Physician Assistant; Student in an Organized Health Care Education/Training Program
DX: J44.1 Chronic obstructive pulmonary disease with (acute) exacerbation (principal); E87.2 Acidosis; J96.11 Chronic respiratory failure with hypoxia; I11.0 Hypertensive heart disease with heart failure; I50.22 Chronic systolic (congestive) heart failure; Z99.81 Dependence on supplemental oxygen; J20.9 Acute bronchitis, unspecified; J44.0 Chronic obstructive pulmonary disease with (acute) lower respiratory infection; K21.9 Gastro-esophageal reflux disease without esophagitis; F32.9 Major depressive disorder, single episode, unspecified; F41.9 Anxiety disorder, unspecified; Z88.8 Allergy status to other drugs, medicaments and biological substances; Z90.49 Acquired absence of other specified parts of digestive tract; Z87.891 Personal history of nicotine dependence
CPT/HCPCS: 2NASP; ERO; 36415; 71045; 71046; 82436; 87070; 87804; 87804-59; 93005; 93010; 94644; 96374; 96375; J0456; J1650; J2920; J2930; J3490; J7060; J7608